=== PATIENT | male | born 1970 | race Caucasian/White ===

== ENCOUNTER 2016-05-01 18:33 | Observation (INO) | payer OTHER ==
[2016-05-01 18:41] VITALS: BMI 30.2
[2016-05-01 19:28] LABS: BASOPHIL 0.8 % (0-2.0); MCH 29.5 pg (25.7-33.7); MCHC 34.1 g/dl (32.0-35.9); MEAN CELL VOLUME 86.5 fl (80-96); NEUTROPHILS 65.2 % (42.8-82.8); PLATELET COUNT 156 K/MM3 (134-434); RDW 13.7 % (11.9-15.9); WHITE BLOOD COUNT 8.4 K/mm3 (4.0-10.0)
[2016-05-01 19:41] LABS: INR 0.98 (0.82-1.09); PROTHROMBIN TIME (PATIENT) 10.8 SEC (9.98-11.88)
--- NOTE | 2016-05-01 19:47 | PDOC ---
History of Present Illness - General Chief Complaint: Chest Pain Stated Complaint: CHEST PAIN Time Seen by Provider: 05/01/16 19:18 History Source: Patient Exam Limitations: No Limitations - History of Present Illness Initial Comments: 05/01/16 21:32 45yo Male patient presents to ED c/o chest pains for past couple days. Patient reports chest pains as ongoing since Sunday. He states he went to see his PCP who wanted to admit him but he refused and wanted to wait a few days. Patient state having MA in 2010 and had no symptoms and is concerned same thing may happen again. He denies n/v/d, fever, abd pain, back pain, cough, diff breathing , or any other complaints at this time. Cardiology- Dr. Brice Presenting Symptoms: Chest Pain Timing/Duration: reports: constant, getting worse Severity/Quality: reports: moderate, ingestion, pressure Location: reports: substernal Chest Pain Radiation: reports: no radiation Activities at Onset: reports: no specific activity Prior Chest Pain/Cardiac Workup: reports: Heart Attack Nitro Today/Relief: Yes: no nitro taken today, provided by ED Aspirin Received prior to arrival (Core Measure): Yes: 325 mg x 1, provided at home Beta Luisito given by EMS (Core Measure): No Beta Luisito taken at Home (Core Measure): Yes Associated Symptoms: Yes: Chest Pain/pressure, Headache. No: Back Pain, Cough, Diaphoresis, Dizziness, Fatigue, Palpitations, Shortness of Breath, Weakness Past History - Travel Traveled outside of the country in the last 30 days: No Close contact w/someone who was outside of country & ill: No - Past Medical History Allergies/Adverse Reactions: Allergies Allergy/AdvReac Type Severity Reaction Status Date / Time Penicillins Allergy Verified 05/01/16 18:41 Home Medications: Ambulatory Orders FENTANYL 100mcg PATCH [DURAGESIC 100mcg PATCH -] 1 patch TD Q3D 01/14/16 Oxycodone HCl 30 mg PO ASDIR 01/14/16 Aspirin [ASA -] 81 mg PO DAILY 02/08/16 Cyclobenzaprine HCl [Flexeril -] 10 mg PO TID 02/08/16 Lisinopril [Zestril] 20 mg PO DAILY 02/08/16 Albuterol Sulfate Inhaler - [Ventolin Hfa Inhaler -] 2 inh PO Q4H PRN 02/09/16 Amlodipine Besylate [Norvasc -] 5 mg PO DAILY 05/01/16 Isosorbide Mononitrate [Imdur -] 30 mg PO DAILY 05/01/16 Cancer: No (denies) Cardiac Disorders: Yes (MA 2008; s/p cath) HTN: Yes Lung CA: Yes - Surgical History Abdominal Surgery: (SPLENECTOMY; RIGHT KIDNEY REMOVED) Cardiac Surgery: Yes (cardiac cath no stents) Orthopedic Surgery: Yes (spinal sx x10) - Immunization History Immunization Up to Date: Yes - Psycho/Social/Smoking Cessation Hx Anxiety: Yes Suicidal Ideation: No Smoking Status: Yes Smoking History: Never smoked Years of Tobacco Use: 15 Have you smoked in the past 12 months: Yes Number of Cigarettes Smoked Daily: 5 Cigars Per Day: 0 Information on smoking cessation initiated: No 'Breaking Loose' booklet given: 02/08/16 Hx Alcohol Use: No Drug/Substance Use Hx: No Substance Use Type: Opiates Hx Substance Use Treatment: No Cardiac Specific PMH - Complaint Specific PMHX Abdominal Aortic Aneurysm: No Angina: Yes Cardiac Arrhythmia: No Cardiac Stent: No GERD: No Myocardial Infarction: Yes Pacemaker: No Pulmonary Embolus: No Valvular Heart Disease: No Peripheral Vascular Disease: No Review of Systems - Review of Systems Able to Perform ROS?: Yes Is the patient limited [place] proficient: No Constitutional: No: Fever Respiratory: No: Cough, Shortness of Breath Cardiac (ROS): Yes: Chest Pain Musculoskeletal: No: Back Pain All Other Systems: Reviewed and Negative *Physical Exam - Vital Signs Last Vital Signs Temp Pulse Resp BP Pulse Ox 98 F 80 18 132/80 98 05/01/16 18:37 05/01/16 18:37 05/01/16 18:37 05/01/16 18:37 05/01/16 18:37 - Physical Exam General Appearance: Yes: Nourished, Appropriately Dressed Neck: positive: Trachea midline, Supple Respiratory/Chest: positive: Lungs Clear, Normal Breath Sounds Cardiovascular: positive: Regular Rhythm, Regular Rate Gastrointestinal/Abdominal: positive: Normal Bowel Sounds, Soft Musculoskeletal: positive: Normal Inspection. negative: CVA Tenderness Extremity: positive: Normal Capillary Refill, Normal Inspection, Normal Range of Motion Integumentary: positive: Normal Color, Dry, Warm Neurologic: positive: python java developer II-XII NML intact, Fully Oriented, Alert, Normal Mood/ Affect, Normal Response, Motor Strength 09/01 ED Treatment Course - LABORATORY CBC & Chemistry Diagram: 05/01/16 19:15 05/01/16 19:15 - ADDITIONAL ORDERS Additional order review: Laboratory Results 05/01/16 05/01/16 05/01/16 19:15 19:15 19:15 INR 0.98 Sodium 138 Potassium 4.1 Chloride 105 Carbon Dioxide 27 Anion Gap 6 L BUN 18 Creatinine 0.8 Creat Clearance w eGFR > 60 Random Glucose 100 Calcium 8.1 L Total Bilirubin 0.3 AST 21 D ALT 36 D Alkaline Phosphatase 77 D Creatine Kinase 94 Troponin I < 0.02 Total Protein 6.8 Albumin 3.9 Blood Type B POSITIVE Antibody Screen Negative 05/01/16 19:15 RBC 5.13 MCV 86.5 MCHC 34.1 RDW 13.7 MPV 11.0 Neutrophils % 65.2 Lymphocytes % 23.8 Monocytes % 7.2 Eosinophils % 3.0 Basophils % 0.8 - RADIOLOGY Radiology Studies Ordered: Category Date Time Status CHEST X-RAY PORTABLE* [RAD] Stat Radiology 05/01/16 19:20 Taken *DC/Admit/Observation/Transfer Diagnosis at time of Disposition: Chest pain Qualifiers: Chest pain type: unspecified Qualified Code(s): R07.9 - Chest pain, unspecified - Discharge Dispostion Condition at time of disposition: Stable Admit: Yes
[2016-05-01 20:02] LABS: ALBUMIN 3.9 g/dl (3.4-5.0); ANION GAP 6 (8-16); BILIRUBIN,TOTAL 0.3 mg/dL (0.2-1.0); CALCIUM 8.1 mg/dL (8.5-10.1); CO2 27 mmol/L (21-32); CREATININE 0.8 mg/dL (0.7-1.3); GLUCOSE,RANDOM 100 mg/dL (74-106); SGOT/AST 21 U/L (15-37); SGPT/ALT 36 U/L (12-78); TOT PROT 6.8 g/dl (6.4-8.2)
[2016-05-01 20:05] LABS: ALK PHOS 77 U/L (45-117); TROPONIN I < 0.02 ng/ml (0.00-0.05)
--- NOTE | 2016-05-01 20:19 | PDOC ---
*Physical Exam - Vital Signs Last Vital Signs Temp Pulse Resp BP Pulse Ox 98 F 80 18 132/80 98 05/01/16 18:37 05/01/16 18:37 05/01/16 18:37 05/01/16 18:37 05/01/16 18:37 ED Treatment Course - LABORATORY CBC & Chemistry Diagram: 05/02/16 07:10 05/02/16 07:10 - ADDITIONAL ORDERS Additional order review: Laboratory Results 05/01/16 05/01/16 19:15 19:15 INR 0.98 Sodium 138 Potassium 4.1 Chloride 105 Carbon Dioxide 27 Anion Gap 6 L BUN 18 Creatinine 0.8 Creat Clearance w eGFR > 60 Random Glucose 100 Calcium 8.1 L Total Bilirubin 0.3 AST 21 D ALT 36 D Alkaline Phosphatase 77 D Creatine Kinase 94 Troponin I < 0.02 Total Protein 6.8 Albumin 3.9 05/01/16 19:15 RBC 5.13 MCV 86.5 MCHC 34.1 RDW 13.7 MPV 11.0 Neutrophils % 65.2 Lymphocytes % 23.8 Monocytes % 7.2 Eosinophils % 3.0 Basophils % 0.8 Medical Decision Making - Medical Decision Making 05/01/16 20:18 agree with care from ANABELLA Hu *DC/Admit/Observation/Transfer Diagnosis at time of Disposition: Chest pain - Discharge Dispostion Condition at time of disposition: Stable
[2016-05-01] MEDS ORDERED: oxyCODONE HCL 5 MG TABLET PO ONE (21:28)
[2016-05-01] MEDS ORDERED: NITROGLYCERIN 2% OINTMENT - 1GM PACKET TD ONE ×2 (21:28→21:32)
[2016-05-01] MEDS ORDERED: oxyCODONE HCL 5 MG TABLET ONE (21:31)
[2016-05-02] MEDS ORDERED: HYDROmorphone HCL CARPU-JECT 2 MG/1 ML DISP.SYRIN IVPUSH ONE (01:14)
[2016-05-02] MEDS ORDERED: HYDROmorphone HCL CARPU-JECT 2 MG/1 ML DISP.SYRIN ONE (01:15)
[2016-05-02] MEDS ORDERED: ALBUTEROL SO4 6.7 GM HFA INHALER IH PRN (02:46)
[2016-05-02] MEDS ORDERED: fentaNYL 100mcg/hr PATCH.TD72 TD SCH (03:00)
[2016-05-02] MEDS ORDERED: fentaNYL 100mcg/hr PATCH.TD72 ONE (03:09)
[2016-05-02] MEDS ORDERED: FENTANYL PATCH WASTE TD PRN (03:09)
[2016-05-02 03:26] LABS: TROPONIN I < 0.02 ng/ml (0.00-0.05)
[2016-05-02] MEDS ORDERED: oxyCODONE HCL 5 MG TABLET PO PRN (03:30)
[2016-05-02] MEDS ORDERED: CYCLOBENZAPRINE HCL 10 MG TABLET (FP) ONE (04:04)
[2016-05-02] MEDS ORDERED: oxyCODONE HCL 5 MG TABLET ONE (04:05)
[2016-05-02] MEDS: CYCLOBENZAPRINE HCL 10 MG TABLET (FP) PO PRN ×2 (04:06→13:52)
[2016-05-02 07:37] LABS: BASOPHIL 0.5 % (0-2.0); EOSINOPHIL 3.3 % (0-4.5); MCH 30.1 pg (25.7-33.7); MCHC 34.3 g/dl (32.0-35.9); MEAN CELL VOLUME 87.7 fl (80-96); MEAN PLT VOLUME 10.7 fl (7.5-11.1); NEUTROPHILS 60.5 % (42.8-82.8); PLATELET COUNT 137 K/MM3 (134-434); RDW 13.8 % (11.9-15.9); WHITE BLOOD COUNT 6.2 K/mm3 (4.0-10.0)
[2016-05-02 08:08] LABS: ALBUMIN 3.9 g/dl (3.4-5.0); ANION GAP 5 (8-16); CALCIUM 8.6 mg/dL (8.5-10.1); CO2 32 mmol/L (21-32); CREATININE 0.8 mg/dL (0.7-1.3); GLUCOSE,RANDOM 101 mg/dL (74-106); SGOT/AST 16 U/L (15-37); SGPT/ALT 31 U/L (12-78)
[2016-05-02 08:09] LABS: ALK PHOS 70 U/L (45-117); BILIRUBIN,TOTAL 0.4 mg/dL (0.2-1.0); TOT PROT 6.3 g/dl (6.4-8.2)
--- NOTE | 2016-05-02 08:44 | CONSULT ---
Consult Consult Specialty:: Cardiology Referred by:: ER Reason for Consultation:: chest pain - History of Present Illness Chief Complaint: chest pain History of Present Illness: 45 year old man with a history of HTN, prior smoker, multiple back surgeries, reported prior AK 2009 at [facility] with cardiac cath at that time showing no obstructive coronary disease, no intervention performed, possible chronic small vessel CAD, recent admission with chest pain and abnormal nuclear stress test, cardiac cath 01/2016 at [facility] showed again no obstructive CAD, echo showed normal biventricular function, no pericardial effusion, normal aortic root size, continues to have chronic atypical chest pain, presented to the ER with chest pressure. Pt. states that his chest pressure became worse yesterday so he came to the ER. Also history of chronic intermittent episodes of palpitations associated with flushing, headache, elevated blood pressure. 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 Pt. seen and examined in the ER in [place]. states that he still has chest pressure. denies sob, palpitations, lightheadedness, dizziness, syncope, or near syncope. no pnd, orthopnea, or LE edema. - History Source History Provided By: Patient, Medical Record Limitations to Obtaining History: No Limitations - Past Medical History Cardio/Vascular: Yes: CAD, HTN, Hyperlipdemia, [place] Musculoskeletal: Yes: Chronic low back pain, Other (multiple previous back surgeries, chronic back pain) - Alcohol/Substance Use Hx Alcohol Use: No - Smoking History Smoking history: Never smoked Have you smoked in the past 12 months: Yes Aproximately how many cigarettes per day: 5 - Social History ADL: Independent History of Recent Travel: No Home Medications - Allergies Allergies/Adverse Reactions: Allergies Allergy/AdvReac Type Severity Reaction Status Date / Time Penicillins Allergy Verified 05/01/16 18:41 - Home Medications Home Medications: Ambulatory Orders FENTANYL 100mcg PATCH [DURAGESIC 100mcg PATCH -] 1 patch TD Q3D 01/14/16 Oxycodone HCl 1 - 2 tab PO Q6H PRN 01/14/16 Aspirin [ASA -] 81 mg PO DAILY 02/08/16 Cyclobenzaprine HCl [Flexeril -] 10 mg PO TID 02/08/16 Lisinopril [Zestril] 20 mg PO DAILY 02/08/16 Albuterol Sulfate Inhaler - [Ventolin Hfa Inhaler -] 2 inh PO Q4H PRN 02/09/16 Amlodipine Besylate [Norvasc -] 5 mg PO DAILY 05/01/16 Isosorbide Mononitrate [Imdur -] 30 mg PO DAILY 05/01/16 Family Disease History - Family Disease History Family History: Denies Review of Systems - Review of Systems Constitutional: reports: Diaphoresis. denies: No Symptoms, Chills, Fever, Lethargy, Loss of Appetite, Malaise, Night Sweats, Unintentional Wgt. Loss, Weakness, Other Eyes: denies: No Symptoms, Blind Spots, Blurred Vision, Double Vision, Eye Pain , Floaters, Photophobia, Recent Change in Vision, Other HENT: denies: No Symptoms, Difficult Swallowing, Ear Discharge, Ear Pain, Epistaxis, Gingival Bleeding, Hearing Loss, Mouth Swelling, Nasal Congestion, Ocular Prosthesis, Throat Pain, Toothache, Ringing in Ears, Other Neck: denies: No Symptoms, Decreased ROM, Lumps, Pain on Movement, Stiffness, Swollen Glands, Tenderness, Other Cardiovascular: reports: Chest Pain, Palpitations. denies: No Symptoms, Edema, Shortness of Breath, Other Respiratory: denies: No Symptoms, Cough, Exercise Intolerance, Hemoptysis, Orthopnea, PND, Snoring, SOB, SOB on Exertion, Wheezing, Other Gastrointestinal: denies: No Symptoms, Abdominal Pain, Bloating, Constipation, Diarrhea, Dysphagia, Indigestion, Melena, Nausea, Rectal Bleeding, Vomiting, Vomiting Blood, Other Genitourinary: denies: No Symptoms, Burning, Discharge, Dysuria, Flank Pain, Frequency, Hematuria, Incontinence, Lesions, Menses, Pain, Testicular Mass, Testicular Pain, Testicular Swelling, Urgency, Vaginal Bleeding, Other Musculoskeletal: reports: Back Pain. denies: No Symptoms, Crepitus, Decreased ROM, Extremity Pain, Joint Pain, Joint Swelling, Muscle Pain, Muscle Cramps, Muscle Weakness, Other Integumentary: denies: No Symptoms, Blister, Bruising, Change in Color, Eczema, Erythema, Incision, Lesions, Lump, Pallor, Pruritis, Rash, Wound, Other Neurological: denies: No Symptoms, Change in LOC, Change in Speech, Confusion, Dizziness, Headache, Incoordination, Numbness, Parasthesia, Pre-Existing Deficit , Seizure, Syncope, Tremors, Unsteady Gait, Weakness, Other Endocrine: denies: No Symptoms, Excessive Sweating, Flushing, Increased Hunger, Increased Thirst, Intolerance to Cold, Intolerance to Heat, Unexplained Weight Gain, Unexplained Weight Loss, Other Hematology/Lymphatic: denies: No Symptoms, Easily Bruised, Excessive Bleeding, Swollen Glands, Other Psychiatric: denies: No Symptoms, Altered Sleep Pattern, Anxiety, Depression, Hallucinations, Panic, Paranoia, Suicidal, Other - Risk Factors Known Risk Factors: Yes: Hypercholesterolemia, Hypertension Vital Signs: Vital Signs Temperature 98 F 05/01/16 18:37 Pulse Rate 70 05/02/16 05:32 Respiratory Rate 16 05/02/16 05:32 Blood Pressure 116/74 05/02/16 05:32 O2 Sat by Pulse Oximetry (%) 100 05/02/16 05:32 Constitutional: Yes: Well Nourished, No Distress, Calm Eyes: Yes: WNL, Conjunctiva Clear, EOM Intact, PERRL HENT: Yes: WNL, Atraumatic, Normocephalic Neck: Yes: WNL, Supple, Trachea Midline Respiratory: Yes: WNL, Regular, CTA Bilaterally. No: Rales, Rhonchi, Wheezes Gastrointestinal: Yes: WNL, Normal Bowel Sounds, Soft. No: Distention, Tenderness Renal/: Yes: WNL Cardiovascular: Yes: WNL, Regular Rate and Rhythm. No: Bradycardia, Tachycardia , Pulse Irregular, Gallop, Rub, Varicosities JVD: No Carotid Bruit: No PMI: Non-Displaced Heart Sounds: Yes: S1, S2. No: Split S2, S3, S4, Clicks, Gallop, Rub, Bruit Murmur: No: Systolic Murmur, Diastolic Murmur Musculoskeletal: Yes: Back Pain Extremities: Yes: WNL Edema: No Peripheral Pulses WNL: Yes Peripheral Pulses: 2+ Left Doralis Pedis, 2+ Right Dorsalis Pedis Integumentary: Yes: WNL Neurological: Yes: WNL, Alert, Oriented, Cran Nerves II-XII Intact ...Motor Strength: WNL Psychiatric: Yes: WNL, Alert, Oriented - Other Data Labs, Other Data: CBC, BMP 05/02/16 07:10 05/02/16 07:10 INR, PTT INR 0.98 (0.82-1.09) 05/01/16 19:15 ekg-NSR 75bpm, incomplete RBBB, nonspecific St abnl Echo: Pending, Report Reviewed Prior Cardiac Procedures: Cardiac Catheterization Imaging - Results Chest X-ray: Report Reviewed, Image Reviewed EKG: Report Reviewed, Image Reviewed Other: Report Reviewed, Image Reviewed Problem List - Problems (1) Chest pain Code(s): R07.9 - CHEST PAIN, UNSPECIFIED Qualifiers: Chest pain type: unspecified Qualified Code(s): R07.9 - Chest pain, unspecified (2) CAD (coronary artery disease) Code(s): I25.10 - ATHSCL HEART DISEASE OF [place] CORONARY ARTERY W/O ANG PCTRS Qualifiers: Coronary Disease-Associated Artery/Lesion type: [place] artery Associated angina: with stable angina (3) HTN (hypertension) Code(s): I10 - ESSENTIAL (PRIMARY) HYPERTENSION (4) HLD (hyperlipidemia) Code(s): E78.5 - HYPERLIPIDEMIA, UNSPECIFIED Assessment/Plan 45 year old man with a history of HTN, prior smoker, multiple back surgeries, reported prior AK 2009 at [facility] with cardiac cath at that time showing no obstructive coronary disease, no intervention performed, possible chronic small vessel CAD, recent admission with chest pain and abnormal nuclear stress test, cardiac cath 01/2016 at [facility] showed again no obstructive CAD, echo showed normal biventricular function, no pericardial effusion, normal aortic root size, continues to have chronic atypical chest pain, presented to the ER with chest pressure. Pt. states that his chest pressure became worse yesterday so he came to the ER. Also history of chronic intermittent episodes of palpitations associated with flushing, headache, elevated blood pressure. 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 Chest pain-atypical, unlikely ACS -recent cath as above with no sig CAD -possible small vessell CAD -cardiac enzymes wnl x2, would check 3rd set -Check CTA chest/abd to rule out aortic pathology and PE -f/up echo that was ordered for today -cont ASA 81mg daily -cont norvasc and Imdur for possible small vessel CAD -will consider Ranexa as well -cont Lisinopril -Ok to dc tele -no additional ischemic work up is needed at this time HTN-well controlled -cont current medical regimen Episodic palpitations associated with flushing, headache, HTN -not reported on this presentation -needs endocrine evaluation for pheochromocytoma work up, can likely be done as outpatient
--- NOTE | 2016-05-02 09:51 | EKG ---
Test Reason : Blood Pressure : / mmHG Vent. Rate : 075 BPM Atrial Rate : 075 BPM P-R Int : 168 ms QRS Dur : 116 ms QT Int : 402 ms P-R-T Axes : 025 -09 020 degrees QTc Int : 448 ms NORMAL SINUS RHYTHM INCOMPLETE RIGHT BUNDLE BRANCH BLOCK BORDERLINE ECG WHEN COMPARED WITH ECG OF 09-FEB-2016 05:33, INCOMPLETE RIGHT BUNDLE BRANCH BLOCK IS NOW PRESENT Confirmed by EVELIA ACUNA MD ([id number]) on 05/02/2016 9:50:55 AM Referred By: Overread By: EVELIA ACUNA MD
[2016-05-02] MEDS: ASPIRIN 81 MG CHEWABLE TABLETS PO SCH ×2 (11:03→13:54)
[2016-05-02] MEDS: ISOSORBIDE MONONITRATE 30 MG TAB.SR.24H (FP) PO SCH ×2 (11:04→13:53)
[2016-05-02] MEDS: PANTOPRAZOLE 40 MG TABLET (FP) PO SCH ×2 (11:04→13:53)
[2016-05-02] MEDS: amLODIPine BESYLATE 5 MG TABLET (FP) PO SCH ×2 (11:04→13:52)
[2016-05-02] MEDS: LISINOPRIL 20 MG TABLET (FP) PO SCH ×2 (11:05→13:53)
--- NOTE | 2016-05-02 12:44 | HP ---
Admitting History and Physical - Admission Chief Complaint: Chest pain History of Present Illness: Pt is a 45 y/o male w/ PMH significant for HTN, HLD, S/P [place] and nonobstructive CAD. Pt had cardiac cath in 02/12 at [facility] wc was normal. Pt now presented to the ER bc of chest pain w/ an intensity of 10/10 wc had been intermittent for the past few days. Pt even saw his PMD who recommended pt be admitted however he refused. Pt associates this chest pain w/ palpitations and flushing of the his face. - Past Medical History Cardiovascular: Yes: CAD, HTN, Hyperlipdemia, [place] Musculoskeletal: Yes: Chronic low back pain, Other (multiple previous back surgeries, chronic back pain) - Past Surgical History Additional Past Surgical History: Multiple back surgeries - Smoking History Smoking history: Never smoked Have you smoked in the past 12 months: Yes Aproximately how many cigarettes per day: 5 - Alcohol/Substance Use Hx Alcohol Use: No - Social History ADL: Independent History of Recent Travel: No Home Medications - Allergies Allergies/Adverse Reactions: Allergies Allergy/AdvReac Type Severity Reaction Status Date / Time Penicillins Allergy Verified 05/01/16 18:41 - Home Medications Home Medications: Ambulatory Orders FENTANYL 100mcg PATCH [DURAGESIC 100mcg PATCH -] 1 patch TD Q3D 01/14/16 Oxycodone HCl 1 - 2 tab PO Q6H PRN 01/14/16 Aspirin [ASA -] 81 mg PO DAILY 02/08/16 Cyclobenzaprine HCl [Flexeril -] 10 mg PO TID 02/08/16 Lisinopril [Zestril] 20 mg PO DAILY 02/08/16 Albuterol Sulfate Inhaler - [Ventolin Hfa Inhaler -] 2 inh PO Q4H PRN 02/09/16 Amlodipine Besylate [Norvasc -] 5 mg PO DAILY 05/01/16 Isosorbide Mononitrate [Imdur -] 30 mg PO DAILY 05/01/16 Family Disease History - Family Disease History Family History: Unremarkable Review of Systems - Review of Systems Constitutional: reports: Other (Flushing) HENT: reports: No Symptoms Neck: reports: No Symptoms Cardiovascular: reports: Chest Pain Respiratory: reports: No Symptoms Gastrointestinal: reports: No Symptoms Physical Examination Vital Signs: Vital Signs Temperature 97.9 F 05/02/16 09:00 Pulse Rate 59 L 05/02/16 09:00 Respiratory Rate 24 05/02/16 09:00 Blood Pressure 93/43 05/02/16 09:00 O2 Sat by Pulse Oximetry (%) 100 05/02/16 05:32 Constitutional: Yes: Well Nourished HENT: Yes: WNL Neck: Yes: Supple Cardiovascular: Yes: WNL, Regular Rate and Rhythm Respiratory: Yes: WNL, Regular, CTA Bilaterally Gastrointestinal: Yes: WNL, Normal Bowel Sounds, Soft, Abdomen, Obese Labs: CBC, BMP 05/02/16 07:10 05/02/16 07:10 Problem List - Problems (1) Chest pain Assessment/Plan: CPK/troponin have been negative Negative cardiac cath 02/12 Check echo as per cardio Check CTA chest/ct abd Code(s): R07.9 - CHEST PAIN, UNSPECIFIED Qualifiers: Chest pain type: unspecified Qualified Code(s): R07.9 - Chest pain, unspecified (2) HTN (hypertension) Assessment/Plan: BP stable Code(s): I10 - ESSENTIAL (PRIMARY) HYPERTENSION (3) HLD (hyperlipidemia) Code(s): E78.5 - HYPERLIPIDEMIA, UNSPECIFIED (4) Back pain Code(s): M54.9 - DORSALGIA, UNSPECIFIED (5) CAD (coronary artery disease) Code(s): I25.10 - ATHSCL HEART DISEASE OF [place] CORONARY ARTERY W/O ANG PCTRS Qualifiers: Coronary Disease-Associated Artery/Lesion type: [place] artery Associated angina: with stable angina
[2016-05-02] MEDS: HEPARIN NA (PORCINE) 5,000 UNITS/ML 1ML VIAL SQ SCH ×2 (13:54→22:18)
[2016-05-02] MEDS: oxyCODONE HCL 5 MG TABLET PO PRN ×2 (14:12→20:29)
[2016-05-03] MEDS: oxyCODONE HCL 5 MG TABLET PO PRN ×2 (06:33→12:32)
[2016-05-03] MEDS: HEPARIN NA (PORCINE) 5,000 UNITS/ML 1ML VIAL SQ SCH (10:21)
[2016-05-03] MEDS: LISINOPRIL 20 MG TABLET (FP) PO SCH (10:21)
[2016-05-03] MEDS: amLODIPine BESYLATE 5 MG TABLET (FP) PO SCH (10:21)
[2016-05-03] MEDS: ISOSORBIDE MONONITRATE 30 MG TAB.SR.24H (FP) PO SCH (10:21)
[2016-05-03] MEDS: PANTOPRAZOLE 40 MG TABLET (FP) PO SCH (10:21)
[2016-05-03] MEDS: ASPIRIN 81 MG CHEWABLE TABLETS PO SCH (10:21)
[2016-05-03 11:55] VITALS: BP 125/82; PULSE 68; TEMP 97.9
== END 2016-05-03 14:12 | disposition home or self-care (01) ==
LOC: JER 18:33 → UNDOADMOB 22:13 → JERBED 22:13 → OBSVTOIN 05-02 02:54 → JERBED 05-02 02:54 → INTOOBSV 05-02 02:54 → J8W 05-02 13:38 → JERBED 05-02 13:38
PROVIDERS: ADMIT Internal Medicine; ATTEND Internal Medicine
DX: R07.89 Other chest pain (principal); I10 Essential (primary) hypertension; I25.2 Old myocardial infarction; I25.10 Atherosclerotic heart disease of native coronary artery without angina pectoris; E78.5 Hyperlipidemia, unspecified; M54.5 Low back pain
CPT/HCPCS: 36415; 71010-TC; 71275-TC; 74174-TC; 76705-TC; 80053; 82550; 84484; 85025; 85610; 86850; 86900; 86901; 93005; 93010; 93306-TC; 99285-25; G0378; J1644

== ENCOUNTER 2016-05-27 17:56 | Emergency (ER) | payer OTHER ==
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
[2016-05-27] MEDS ORDERED: HYDROmorphone HCL CARPU-JECT 1 MG/1 ML DISP.SYRIN IVPUSH ONE ×3 (18:16→20:57)
[2016-05-27] MEDS ORDERED: SODIUM CHLORIDE 1,000 ML IV STA ×2 (18:16→18:28)
[2016-05-27] MEDS ORDERED: HYDROmorphone HCL CARPU-JECT 2 MG/1 ML DISP.SYRIN ONE ×2 (18:34→19:39)
[2016-05-27 18:46] VITALS: TEMP 98.5; BMI 28.2
[2016-05-27 18:49] LABS: BASOPHIL 0.3 % (0-2.0); EOSINOPHIL 0.8 % (0-4.5); MCH 29.5 pg (25.7-33.7); MCHC 33.3 g/dl (32.0-35.9); MEAN CELL VOLUME 88.5 fl (80-96); MEAN PLT VOLUME 10.8 fl (7.5-11.1); NEUTROPHILS 80.5 % (42.8-82.8); PLATELET COUNT 148 K/MM3 (134-434); RDW 12.4 % (11.9-15.9); WHITE BLOOD COUNT 9.1 K/mm3 (4.0-10.0)
[2016-05-27 18:55] LABS: INR 1.16 (0.82-1.09); PROTHROMBIN TIME (PATIENT) 12.6 SEC (10.2-13.0)
[2016-05-27 18:56] LABS: ALBUMIN 4.8 g/dl (3.5-5.0); ALK PHOS 66 U/L (32-92); ANION GAP 12 (8-16); BILIRUBIN,TOTAL 0.5 mg/dl (0.2-1.0); CALCIUM 9.7 mg/dl (8.4-10.2); CO2 23 mmol/L (22-28); CREATININE 0.7 mg/dl (0.6-1.3); GLUCOSE,RANDOM 101 mg/dl (74-106); SGOT/AST 25 U/L (10-42); SGPT/ALT 27 U/L (10-40); TOT PROT 7.7 g/dl (6.4-8.3)
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
[2016-05-27 19:53] LABS: URINE APPEARANCE Clear; URINE BILIRUBIN Negative (NEGATIVE); URINE BLOOD Negative (NEGATIVE); URINE GLUCOSE (UA) Negative (NEGATIVE); URINE KETONE Trace (NEGATIVE); URINE LEUK ESTERASE Negative (NEGATIVE); URINE NITRITE Negative (NEGATIVE); URINE PROTEIN Negative (NEGATIVE); URINE UROBILINOGEN 0.2 E.U/dl (0.2-1.0)
[2016-05-27 19:54] LABS: URINE COLOR YELLOW
[2016-05-27 20:42] VITALS: BP 119/66; PULSE 55
[2016-05-27 21:05] LABS: URINE MARIJUANA THC NEGATIVE ng/ml (CUTOFF=50)
[2016-05-27] MEDS ORDERED: FENTANYL PATCH WASTE MC PRN (21:18)
[2016-05-27] MEDS ORDERED: fentaNYL 50mcg/hr PATCH.TD72 TD SCH (21:30)
== END 2016-05-27 21:34 | disposition home or self-care (01) ==
LOC: FER 17:56
PROC: 3E033NZ Introduction of Analgesics, Hypnotics, Sedatives into Peripheral Vein, Percutaneous Approach (ICD-10-PCS; principal; 2016-05-27)
PROC: 3E0337Z Introduction of Electrolytic and Water Balance Substance into Peripheral Vein, Percutaneous Approach (ICD-10-PCS; 2016-05-27)
DX: S09.90XA Unspecified injury of head, initial encounter (principal); V48.5XXA Car driver injured in noncollision transport accident in traffic accident, initial encounter; Y93.89 Activity, other specified; Y92.39 Other specified sports and athletic area as the place of occurrence of the external cause; I10 Essential (primary) hypertension; F17.210 Nicotine dependence, cigarettes, uncomplicated; Z85.118 Personal history of other malignant neoplasm of bronchus and lung; I25.2 Old myocardial infarction
CPT/HCPCS: 36415; 70450-TC; 70486-TC; 70498-TC; 71260-TC; 72125-TC; 74177-TC; 80053; 80307; 81003; 83605; 85025; 85610; 86850; 86900; 86901; 99284-25

== ENCOUNTER 2016-08-05 17:53 | Emergency (ER) | payer OTHER ==
[2016-08-05 17:58] VITALS: BP 123/76; PULSE 78; TEMP 98; BMI 30.2
--- NOTE | 2016-08-05 18:30 | PDOC ---
History of Present Illness - General Chief Complaint: Cold Symptoms Stated Complaint: COUGH/CONGESTED Time Seen by Provider: 08/05/16 18:13 History Source: Patient Exam Limitations: No Limitations - History of Present Illness Initial Comments: 08/05/16 18:26 45 old male with history of asthma and smoking presents the ED with cough and congestion for the past 2 weeks. Patient states has been coughing up yellow phlegm but denies fever, difficulty breathing, chest pain, shortness of breath. Patient states normally he is given Z-Isiah and responds well to this especially this time year where he states symptoms mentioned above usually occur. Timing/Duration: reports: other (2 weeks) Severity: reports: mild Possible Cause: Yes: occasional episodes Modifying Factors: improves with: coughing Associated Symptoms: reports: cough Past History - Past Medical History Allergies/Adverse Reactions: Allergies Allergy/AdvReac Type Severity Reaction Status Date / Time Penicillins Allergy Verified 08/05/16 17:58 Home Medications: Ambulatory Orders FENTANYL 100mcg PATCH [DURAGESIC 100mcg PATCH -] 1 patch TD Q3D 01/14/16 Oxycodone HCl 1 - 2 tab PO Q6H PRN 01/14/16 Aspirin [ASA -] 81 mg PO DAILY 02/08/16 Cyclobenzaprine HCl [Flexeril -] 10 mg PO TID 02/08/16 Lisinopril [Zestril] 20 mg PO DAILY 02/08/16 Amlodipine Besylate [Norvasc -] 5 mg PO DAILY 05/01/16 Isosorbide Mononitrate [Imdur -] 30 mg PO DAILY 05/01/16 Metoprolol Succinate [Toprol Xl -] 25 mg PO DAILY 05/27/16 Cancer: No Cardiac Disorders: Yes ([place] 2008; s/p cath) HTN: Yes Lung CA: No - Surgical History Abdominal Surgery: (SPLENECTOMY; RIGHT KIDNEY REMOVED) Appendectomy: Yes Cardiac Surgery: Yes (cardiac cath no stents) Orthopedic Surgery: Yes (spinal sx x10) - Immunization History Immunization Up to Date: Yes - Psycho/Social/Smoking Cessation Hx Anxiety: No Suicidal Ideation: No Smoking Status: Yes Smoking History: Former smoker Years of Tobacco Use: 15 Have you smoked in the past 12 months: Yes Number of Cigarettes Smoked Daily: 5 If you are a former smoker, when did you quit?: 2 [place] Cigars Per Day: 0 Information on smoking cessation initiated: No 'Breaking Loose' booklet given: 05/27/16 Hx Alcohol Use: Yes (SR) Drug/Substance Use Hx: No Substance Use Type: None Hx Substance Use Treatment: No Patient Lives Alone: No Respiratory Specific PMHX - Complaint Specific PMHX Angina: Yes Pulmonary Embolus: No Review of Systems - Review of Systems Able to Perform ROS?: Yes Constitutional: No: Symptoms Reported HEENTM: No: Symptoms Reported Respiratory: Yes: Cough, Productive cough Cardiac (ROS): No: Symptoms Reported ABD/GI: No: Nausea Neurological: No: Headache, Dizziness *Physical Exam - Vital Signs Last Vital Signs Temp Pulse Resp BP Pulse Ox 98.0 F 78 20 123/76 95 08/05/16 17:55 08/05/16 17:55 08/05/16 17:55 08/05/16 17:55 08/05/16 17:55 - Physical Exam General Appearance: Yes: Nourished, Appropriately Dressed. No: Apparent Distress HEENT: positive: EOMI, BLACK, TMs Normal, Pharynx Normal. negative: Pale Conjunctivae Neck: positive: Normal Thyroid Respiratory/Chest: positive: Lungs Clear, Normal Breath Sounds. negative: Respiratory Distress, Accessory Muscle Use Cardiovascular: positive: Regular Rhythm, Regular Rate. negative: Murmur Integumentary: positive: Normal Color, Warm, Moist Neurologic: positive: Motor Strength 5/5 (ambulatory) Medical Decision Making - Medical Decision Making 08/05/16 18:28 patient with complaints of cough and congestion for the past 2 weeks. Patient states smokes and also has history of asthma. Patient states normally responds well to the back. Patient had no acute findings but due to medical history and smoking history patient be given Z-Isiah along with an inhaler. *DC/Admit/Observation/Transfer Diagnosis at time of Disposition: Bronchitis - Discharge Dispostion Disposition: HOME Condition at time of disposition: Good - Referrals Referrals: Yvon Meeks MD [Primary Care Provider] - - Patient Instructions Printed Discharge Instructions: DI for Acute Bronchitis Additional Instructions: Please antibiotics as prescribed. Please use inhaler as needed for wheezing or cough. Drink plenty of fluids and rest
== END 2016-08-05 18:34 | disposition home or self-care (01) ==
LOC: JERFT 17:53
DX: J20.9 Acute bronchitis, unspecified (principal); J45.909 Unspecified asthma, uncomplicated; Z98.61 Coronary angioplasty status; I25.2 Old myocardial infarction; F17.210 Nicotine dependence, cigarettes, uncomplicated
CPT/HCPCS: 99281-25

== ENCOUNTER 2016-09-18 10:06 | Observation (INO) | payer OTHER ==
[2016-09-18 10:22] VITALS: BP 124/57; PULSE 73; TEMP 98.3; BMI 30.2
[2016-09-18] MEDS ORDERED: ASPIRIN 81 MG CHEWABLE TABLETS PO ONE (11:07)
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
[2016-09-18] MEDS ORDERED: ASPIRIN 325 MG ENTERIC COATED TABLET (FP) PO ONE ×2 (11:24→11:55)
[2016-09-18 11:36] LABS: BASOPHIL 0.4 % (0-2.0); EOSINOPHIL 3.1 % (0-4.5); MCH 30.6 pg (25.7-33.7); MCHC 34.8 g/dl (32.0-35.9); MEAN CELL VOLUME 87.9 fl (80-96); MEAN PLT VOLUME 9.8 fl (7.5-11.1); PLATELET COUNT 129 K/MM3 (134-434)
[2016-09-18] MEDS ORDERED: ASPIRIN 325 MG ENTERIC COATED TABLET (FP) ONE (11:39)
[2016-09-18] MEDS ORDERED: ASPIRIN 81 MG CHEWABLE TABLETS ONE (11:43)
[2016-09-18] MEDS ORDERED: oxyCODONE HCL 5 MG TABLET PO ONE (11:49)
[2016-09-18 11:58] LABS: INR 0.98 (0.82-1.09); PROTHROMBIN TIME (PATIENT) 10.8 SEC (9.98-11.88)
[2016-09-18] MEDS ORDERED: oxyCODONE HCL 5 MG TABLET ONE (12:05)
[2016-09-18 12:08] LABS: ALBUMIN 3.7 g/dl (3.4-5.0); ANION GAP 9 (8-16); BILIRUBIN,TOTAL 0.4 mg/dL (0.2-1.0); CALCIUM 8.3 mg/dL (8.5-10.1); CO2 26 mmol/L (21-32); COCKROFT - GAULT 231.94; CREATININE 0.6 mg/dL (0.7-1.3); GLUCOSE,RANDOM 107 mg/dL (74-106); SGOT/AST 21 U/L (15-37); SGPT/ALT 32 U/L (12-78); TOT PROT 6.4 g/dl (6.4-8.2)
[2016-09-18 12:11] LABS: ALK PHOS 65 U/L (45-117); TROPONIN I < 0.02 ng/ml (0.00-0.05)
--- NOTE | 2016-09-18 13:59 | EKG ---
Test Reason : Blood Pressure : / mmHG Vent. Rate : 072 BPM Atrial Rate : 072 BPM P-R Int : 166 ms QRS Dur : 116 ms QT Int : 424 ms P-R-T Axes : 016 005 018 degrees QTc Int : 464 ms NORMAL SINUS RHYTHM INCOMPLETE RIGHT BUNDLE BRANCH BLOCK BORDERLINE ECG WHEN COMPARED WITH ECG OF 01-MAY-2016 18:43, NO SIGNIFICANT CHANGE WAS FOUND Confirmed by EVELIA ACUNA MD ([id number]) on 09/18/2016 1:58:57 PM Referred By: Confirmed By:EVELIA CAUNA MD
--- NOTE | 2016-09-18 15:18 | PN ---
Progress Note (short form) - Note Progress Note: Called for consult for patient admitted with chest pain. When returned call to ER pt has apparently eloped from the hospital. Of note pt was admitted in 2015 at which time he had an abnormal nuclear stress test and was referred to [facility] where cardiac cath was done and showed non-obstructive CAD with no PCI needed. He was presumed to have small vessel CAD causing his chronic atypical chest pain. He was again admitted 04/2016 with atypical chest pain but seems to have signed out AMA at that time. -If pt returns to ER would admit to tele for observation and rule out ACS
== END 2016-09-18 15:26 | disposition left against medical advice (07) ==
LOC: JER 10:06 → JERBED 13:01 → UNDOADMOB 13:01 → INTOOBSV 13:01 → JERBED 13:01 → UNDOADMOB 13:02
PROVIDERS: ADMIT Internal Medicine; ATTEND Internal Medicine
DX: I25.119 Atherosclerotic heart disease of native coronary artery with unspecified angina pectoris (principal); R07.2 Precordial pain; I10 Essential (primary) hypertension; I25.2 Old myocardial infarction; Z98.61 Coronary angioplasty status; Z87.891 Personal history of nicotine dependence; Z90.5 Acquired absence of kidney; Z90.81 Acquired absence of spleen; Z79.82 Long term (current) use of aspirin
CPT/HCPCS: 36415; 71010-TC; 80053; 82550; 83735; 84484; 85025; 85610; 93005; 93010; 99283-25; G0378

== ENCOUNTER 2016-10-19 15:05 | Emergency (ER) | payer OTHER ==
[2016-10-19 15:10] VITALS: BP 135/91; PULSE 68; TEMP 97.8; BMI 29.5
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
[2016-10-19 15:33] LABS: URINE APPEARANCE CLEAR; URINE BILIRUBIN NEGATIVE (NEGATIVE); URINE COLOR YELLOW; URINE GLUCOSE (UA) NEGATIVE (NEGATIVE); URINE KETONE NEGATIVE (NEGATIVE); URINE LEUK ESTERASE NEGATIVE (NEGATIVE); URINE NITRITE NEGATIVE (NEGATIVE); URINE PROTEIN NEGATIVE (NEGATIVE); URINE UROBILINOGEN NEGATIVE E.U./dl (0.2-1.0)
[2016-10-19 15:38] LABS: URINE BLOOD 3+ (NEGATIVE)
[2016-10-19 15:42] LABS: CALCIUM OXALATE CRYSTALS RARE /hpf (NONE SEEN); URINE MUCUS MANY; URINE RBC 250 /hpf (0-3); URINE WBC 3 /hpf (3-5)
[2016-10-19] MEDS ORDERED: CIPROFLOXACIN 500 MG TABLET (RESTRICTED TO ID) PO ONE (15:51)
== END 2016-10-19 16:32 | disposition home or self-care (01) ==
LOC: JERFT 15:05
DX: R31.9 Hematuria, unspecified (principal); Z87.442 Personal history of urinary calculi; F17.210 Nicotine dependence, cigarettes, uncomplicated; Z86.14 Personal history of Methicillin resistant Staphylococcus aureus infection; I10 Essential (primary) hypertension; Z95.5 Presence of coronary angioplasty implant and graft; I25.2 Old myocardial infarction; Z90.5 Acquired absence of kidney
CPT/HCPCS: 81003; 81015; 87086; 99281-25

== ENCOUNTER → 2016-12-04 | Emergency (ER) | payer OTHER ==
[~2016-12-04] MED LIST: ASPIRIN 81 MG CHEWABLE TABLETS ONE; ASPIRIN 81 MG CHEWABLE TABLETS PO ONE; NITROGLYCERIN SUBLINGUAL 1/150 0.4 MG TAB ONE; NITROGLYCERIN SUBLINGUAL 1/150 0.4 MG TAB SL ONE
[2016-12-04 09:56] VITALS: BMI 30.2
--- NOTE | 2016-12-04 10:32 | PDOC ---
History of Present Illness - General History Source: Patient Exam Limitations: No Limitations <AllenAlessandra - Last Filed: 12/04/16 10:52> - General History Source: Patient Exam Limitations: No Limitations - History of Present Illness Beta Luisito given by EMS (Core Measure): No Beta Luisito taken at Home (Core Measure): Yes <Anjana Thao - Last Filed: 12/04/16 12:37> - General Chief Complaint: Chest Pain Stated Complaint: CHEST PAIN Time Seen by Provider: 12/04/16 10:02 - History of Present Illness Initial Comments: 12/04/16 10:52 The patient is a 46 year old male, with a significant past medical history of HTN, [place] (2008 s/p cardiac catheterization) who presents to the emergency department with chest pain this morning. Patient describes substernal chest pain , constant, nonradiating with no associated symptoms. Patient states it feels like an elephant is sitting on his chest. Patient denies taking any medications for relief. Patient mentions his chest pressure is similar to the AR he had 5 years ago. According to EMR, patient was seen 2 months ago for the same complaint however AMA because he had negative troponins. Patient endorses baseline numbness in distal fingers from neck surgery. Patient presents to the ED for further evaluation. Patient denied cough, fever, chills, hx of DVT or PE. He denies headache or dizziness. He denies abdominal pain, nausea, vomit, diarrhea or constipation. He denies dysuria, frequency, urgency or hematuria. Patient had an abnormal stress test on 01/2016 which was indicative for moderate sized mild intensity basal inferior-septal ischemia with a fixed apical defect and an ejection fraction of 58%. He also underwent an echocardiogram on 04/2016 which was indicative for mild pulmonic valvular regurgitation. Allergies: Penicillin Past Surgical History: Cardiac catheterization. Spinal surgery (Neck, Thoracic and Lumbar). Splenectomy. Right Nephrectomy. Social History: Former smoker,No EtOH and recreational drug use. Family hx: Grandma, sister and father from [place] Primary Care Physician: Dr. Yvon Meeks (Alessandra Villa) Past History <Alessandra Villa - Last Filed: 12/04/16 10:52> - Past Medical History Cancer: No Cardiac Disorders: Yes ([place] 2008; s/p cath) HTN: Yes Lung CA: No - Surgical History Abdominal Surgery: (SPLENECTOMY; RIGHT KIDNEY REMOVED) Appendectomy: Yes Cardiac Surgery: Yes (cardiac cath no stents) Orthopedic Surgery: Yes (spinal sx x10) - Immunization History Immunization Up to Date: Yes - Psycho/Social/Smoking Cessation Hx Anxiety: No Suicidal Ideation: No Smoking Status: Yes Smoking History: Current every day smoker Years of Tobacco Use: 15 Have you smoked in the past 12 months: Yes Number of Cigarettes Smoked Daily: 5 If you are a former smoker, when did you quit?: 2 MO Cigars Per Day: 0 Information on smoking cessation initiated: No 'Breaking Loose' booklet given: 05/27/16 Hx Alcohol Use: No Drug/Substance Use Hx: No Substance Use Type: None Hx Substance Use Treatment: No <Anjana Thao - Last Filed: 12/04/16 12:37> - Past Medical History Allergies/Adverse Reactions: Allergies Allergy/AdvReac Type Severity Reaction Status Date / Time Penicillins Allergy Verified 12/04/16 09:56 Home Medications: Ambulatory Orders FENTANYL 100mcg PATCH [DURAGESIC 100mcg PATCH -] 1 patch TD Q3D 01/14/16 Oxycodone HCl 1 - 2 tab PO Q6H PRN 01/14/16 Aspirin [ASA -] 81 mg PO DAILY 02/08/16 Lisinopril [Zestril] 20 mg PO DAILY 02/08/16 Amlodipine Besylate [Norvasc -] 5 mg PO DAILY 05/01/16 Isosorbide Mononitrate [Imdur -] 30 mg PO DAILY 05/01/16 Metoprolol Succinate [Toprol XL -] 25 mg PO DAILY 05/27/16 Albuterol Sulfate Inhaler - [Ventolin HFA Inhaler -] 1 - 2 inh PO QID PRN #1 inhaler 08/05/16 Tamsulosin HCl [Flomax] 0.4 mg PO DAILY #7 cap.er.24h MDD 1 10/19/16 Cardiac Specific PMH - Complaint Specific PMHX Abdominal Aortic Aneurysm: No Angina: Yes Cardiac Arrhythmia: No Cardiac Stent: No GERD: No Pacemaker: No Pulmonary Embolus: No Valvular Heart Disease: No Peripheral Vascular Disease: No <Anjana Thao - Last Filed: 12/04/16 12:37> Review of Systems - Review of Systems Able to Perform ROS?: Yes <Alessandra Villa - Last Filed: 12/04/16 10:52> <MasterAnjana - Last Filed: 12/04/16 12:37> - Review of Systems Comments:: 12/04/16 10:52 GENERAL/CONSTITUTIONAL: No fever or chills. No weakness. HEAD, EYES, EARS, NOSE AND THROAT: No change in vision. No ear pain or discharge. No sore throat. GASTROINTESTINAL: No nausea, vomiting, diarrhea or constipation. GENITOURINARY: No dysuria, frequency, or change in urination. CARDIOVASCULAR: +chest pain. No shortness of breath. RESPIRATORY: No cough, wheezing, or hemoptysis. MUSCULOSKELETAL: No joint or muscle swelling or pain. No neck or back pain. SKIN: No rash NEUROLOGIC: No headache, vertigo, loss of consciousness, or change in strength/ sensation. ENDOCRINE: No increased thirst. No abnormal weight change. HEMATOLOGIC/LYMPHATIC: No anemia, easy bleeding, or history of blood clots. ALLERGIC/IMMUNOLOGIC: No hives or skin allergy. (AllenAlessandra dowell) *Physical Exam <Alessandra Villa - Last Filed: 12/04/16 10:52> <MasterAnjana - Last Filed: 12/04/16 12:37> - Vital Signs Last Vital Signs Temp Pulse Resp BP Pulse Ox 97.8 F 78 18 115/81 98 12/04/16 10:59 12/04/16 10:59 12/04/16 10:59 12/04/16 10:59 12/04/16 10:59 - Physical Exam Comments: 12/04/16 10:53 GENERAL: Awake, alert, and fully oriented, in no acute distress HEAD: No signs of trauma EYES: PERRLA, EOMI, sclera anicteric, conjunctiva clear ENT: Auricles normal inspection, nares patent, Moist mucosa NECK: Normal ROM, supple, no lymphadenopathy, JVD, or masses LUNGS: Breath sounds equal, clear to auscultation bilaterally. No wheezes, and no crackles HEART: Regular rate and rhythm, normal S1 and S2, no murmurs, rubs or gallops ABDOMEN: Soft, nontender, normoactive bowel sounds. No guarding, no rebound. No masses EXTREMITIES: Normal range of motion, no edema. No clubbing or cyanosis. No cords, erythema, or tenderness NEUROLOGICAL: Normal speech SKIN: Warm, Dry, normal turgor, no rashes or lesions noted. (Alessandra Villa) Heart Score/ECG Review #1 General ECG Interpretation: Sinus Rhythm, Normal Rate (74), Normal Intervals, No acute ischemic changes <Anjana Thao - Last Filed: 12/04/16 12:37> ED Treatment Course - LABORATORY CBC & Chemistry Diagram: 12/04/16 10:24 12/04/16 10:24 <Alessandra Villa - Last Filed: 12/04/16 10:52> - LABORATORY CBC & Chemistry Diagram: 12/04/16 10:24 12/04/16 10:24 <Anjana Thao - Last Filed: 12/04/16 12:37> - ADDITIONAL ORDERS Additional order review: Laboratory Results 12/04/16 10:24 Sodium 140 Potassium 3.7 Chloride 107 Carbon Dioxide 27 Anion Gap 6 L BUN 16 D Creatinine 0.8 D Creat Clearance w eGFR > 60 Random Glucose 107 H Calcium 8.4 L Total Bilirubin 0.6 D AST 18 ALT 42 D Alkaline Phosphatase 70 Creatine Kinase 76 Troponin I < 0.02 Total Protein 6.2 L Albumin 3.6 12/04/16 10:24 RBC 5.02 MCV 87.0 MCHC 34.7 RDW 13.2 MPV 10.6 Neutrophils % 64.8 Lymphocytes % 22.7 Monocytes % 8.8 Eosinophils % 2.9 Basophils % 0.8 - RADIOLOGY Radiology Studies Ordered: Category Date Time Status CHEST PA & LAT [RAD] Stat Radiology 12/04/16 10:10 Ordered - Medications Given in the ED: ED Medications Discontinued Medications Generic Name Dose Route Start Last Admin Trade Name Freq PRN Reason Stop Dose Admin Aspirin 162 mg 12/04/16 10:32 12/04/16 10:46 Asa - PO 12/04/16 10:33 162 mg ONCE ONE Administration Nitroglycerin 0.4 mg 12/04/16 10:32 12/04/16 10:54 Nitrostat - SL 12/04/16 10:33 0.4 mg ONCE ONE Administration Medical Decision Making <Alessandra Villa - Last Filed: 12/04/16 10:52> <Anjana Thao - Last Filed: 12/04/16 12:37> - Medical Decision Making 12/04/16 10:27 46 h/o HTN CAD chronic back pain (on fentanyl patch, pain management) here with c/o chest pressure. states feels like elephant sitting on his chest. no cough no f/c no leg swelling. no h/o dvt or pe. feels similar to prior [place]. states had catheterization with angioplasty no stents. states had a nuclear stress test 6 mo ago, was reportedly normal. did take baby aspirin today, states noncompliant with bp meds. one exam awake alert lungs clear bilaterally heart RRRR abd soft NtND skin warm and dry. ext no edema. no calf tendnerss. nuero alert oriented x 3. symmetric pulses bilaterally. differential : infection angina acs, spasm, gerd. plan ekg cxr nitroglycerin asa reassess. 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 12/04/16 12:[address] meeks, and states they do not know the patient. went to inform pt , ad pt no where to be found. per nursing report, pt had stated that he did not want to stay and left the ED. (Anjana Thao) *DC/Admit/Observation/Transfer <Alessandra Villa - Last Filed: 12/04/16 10:52> <Anjana Thao - Last Filed: 12/04/16 12:37> Diagnosis at time of Disposition: Chest pain in adult - Discharge Dispostion Disposition: ELOPED Condition at time of disposition: Unchanged/Unknown - Attestations Scribe Attestion: 12/04/16 10:53 Documentation prepared by Alessandra Villa, acting as medical geneticist for Anjana Thao MD, /. (Alessandra Villa)
[2016-12-04 10:44] LABS: BASOPHIL 0.8 % (0-2.0); EOSINOPHIL 2.9 % (0-4.5); MCH 30.2 pg (25.7-33.7); MCHC 34.7 g/dl (32.0-35.9); MEAN PLT VOLUME 10.6 fl (7.5-11.1); NEUTROPHILS 64.8 % (42.8-82.8); RDW 13.2 % (11.9-15.9); WHITE BLOOD COUNT 7.5 K/mm3 (4.0-10.0)
[2016-12-04 11:02] VITALS: BP 115/81; PULSE 78; TEMP 97.8
[2016-12-04 11:07] LABS: ALBUMIN 3.6 g/dl (3.4-5.0); ANION GAP 6 (8-16); BILIRUBIN,TOTAL 0.6 mg/dL (0.2-1.0); CALCIUM 8.4 mg/dL (8.5-10.1); CO2 27 mmol/L (21-32); CREATININE 0.8 mg/dL (0.7-1.3); GLUCOSE,RANDOM 107 mg/dL (74-106); SGOT/AST 18 U/L (15-37); SGPT/ALT 42 U/L (12-78); TOT PROT 6.2 g/dl (6.4-8.2)
[2016-12-04 11:10] LABS: ALK PHOS 70 U/L (45-117); CPK 76 IU/L (39-308); TROPONIN I < 0.02 ng/ml (0.00-0.05)
[2016-12-04 11:42] LABS: PLATELET COUNT 193 K/MM3 (134-434)
[2016-12-04 11:43] LABS: PLATELET ESTIMATE ADEQUATE (NORMAL)
--- NOTE | 2016-12-04 13:33 | EKG ---
Test Reason : Blood Pressure : / mmHG Vent. Rate : 074 BPM Atrial Rate : 074 BPM P-R Int : 180 ms QRS Dur : 120 ms QT Int : 402 ms P-R-T Axes : 067 001 029 degrees QTc Int : 446 ms NORMAL SINUS RHYTHM NON-SPECIFIC INTRA-VENTRICULAR CONDUCTION DELAY BORDERLINE ECG WHEN COMPARED WITH ECG OF 18-SEP-2016 10:13, NO SIGNIFICANT CHANGE WAS FOUND Confirmed by EVELIA ACUNA MD ([id number]) on 12/04/2016 1:33:27 PM Referred By: Confirmed By:EVELIA ACUNA MD
== END | disposition left against medical advice (07) ==
LOC: JER 09:47
DX: R07.9 Chest pain, unspecified (principal); I10 Essential (primary) hypertension; I25.2 Old myocardial infarction; F17.210 Nicotine dependence, cigarettes, uncomplicated; Z98.61 Coronary angioplasty status; Z79.82 Long term (current) use of aspirin; Z88.0 Allergy status to penicillin
CPT/HCPCS: 36415; 80053; 84484; 85025; 93005; 93010; 99284-25

== ENCOUNTER 2017-01-15 06:22 | Emergency (ER) | payer OTHER ==
--- NOTE | 2017-01-15 06:30 | PDOC ---
History of Present Illness - General Stated Complaint: SHOULDER, BACK PAIN Time Seen by Provider: 01/15/17 06:29 Past History - Past Medical History Allergies/Adverse Reactions: Allergies Allergy/AdvReac Type Severity Reaction Status Date / Time Penicillins Allergy Verified 12/04/16 09:56 Home Medications: Ambulatory Orders FENTANYL 100mcg PATCH [DURAGESIC 100mcg PATCH -] 1 patch TD Q3D 01/14/16 Oxycodone HCl 1 - 2 tab PO Q6H PRN 01/14/16 Aspirin [ASA -] 81 mg PO DAILY 02/08/16 Lisinopril [Zestril] 20 mg PO DAILY 02/08/16 Amlodipine Besylate [Norvasc -] 5 mg PO DAILY 05/01/16 Isosorbide Mononitrate [Imdur -] 30 mg PO DAILY 05/01/16 Metoprolol Succinate [Toprol XL -] 25 mg PO DAILY 05/27/16 Albuterol Sulfate Inhaler - [Ventolin HFA Inhaler -] 1 - 2 inh PO QID PRN #1 inhaler 08/05/16 Tamsulosin HCl [Flomax] 0.4 mg PO DAILY #7 cap.er.24h MDD 1 10/19/16 Cancer: No Cardiac Disorders: Yes ([place] 2008; s/p cath) HTN: Yes Lung CA: No - Surgical History Abdominal Surgery: (SPLENECTOMY; RIGHT KIDNEY REMOVED) Appendectomy: Yes Cardiac Surgery: Yes (cardiac cath no stents) Orthopedic Surgery: Yes (spinal sx x10) - Immunization History Immunization Up to Date: Yes - Psycho/Social/Smoking Cessation Hx Anxiety: No Suicidal Ideation: No Smoking Status: Yes Smoking History: Current every day smoker Years of Tobacco Use: 15 Have you smoked in the past 12 months: Yes Number of Cigarettes Smoked Daily: 5 If you are a former smoker, when did you quit?: 2 MO Cigars Per Day: 0 'Breaking Loose' booklet given: 05/27/16 Hx Alcohol Use: No Drug/Substance Use Hx: No Substance Use Type: None Hx Substance Use Treatment: No
[2017-01-15 06:40] VITALS: PULSE 84; BMI 30.8
[2017-01-15] MEDS ORDERED: HYDROmorphone HCL CARPU-JECT 2 MG/1 ML DISP.SYRIN IVPUSH ONE ×2 (06:41→08:13)
[2017-01-15] MEDS ORDERED: diazePAM 5 MG TABLET PO ONE (06:41)
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
[2017-01-15] MEDS ORDERED: KETOROLAC TROMETHAMINE 30 MG/1 ML VIAL IVPUSH ONE (07:19)
[2017-01-15] MEDS ORDERED: CYCLOBENZAPRINE HCL 5 MG TABLET PO ONE (07:20)
--- NOTE | 2017-01-15 07:42 | PDOC ---
*Physical Exam - Vital Signs Last Vital Signs Temp Pulse Resp BP Pulse Ox 97.9 F 84 22 134/86 99 01/15/17 06:36 01/15/17 06:36 01/15/17 06:36 01/15/17 06:36 01/15/17 06:36 ED Treatment Course - Medications Given in the ED: ED Medications Discontinued Medications Generic Name Dose Route Start Last Admin Trade Name Catarina PRN Reason Stop Dose Admin Cyclobenzaprine HCl 10 mg 01/15/17 07:20 01/15/17 07:36 Cyclobenzaprine Hcl PO 01/15/17 07:21 10 mg ONCE ONE Administration Diazepam 5 mg 01/15/17 06:41 01/15/17 07:02 Valium - PO 01/15/17 06:42 Not Given ONCE ONE Hydromorphone HCl 2 mg 01/15/17 06:41 01/15/17 07:02 Dilaudid Injection - IVPUSH 01/15/17 06:42 2 mg ONCE ONE Administration Ketorolac Tromethamine 30 mg 01/15/17 07:19 01/15/17 07:36 Toradol Injection - IVPUSH 01/15/17 07:20 30 mg ONCE ONE Administration Medical Decision Making - Medical Decision Making 01/15/17 08:20 Patient is a 46-year-old male with past medical history of multiple spinal surgeries, left foot drop, right shoulder torn rotator cuff, chronic opioid tolerance, presents to the emergency department today complaining of an exacerbation patient is low back pain and right shoulder pain. Patient is given 2 mg of IV Dilaudid and Toradol. Patient is also requesting fentanyl patch change, explained to patient we do not change patches in the emergency department. Patient states that the Dilaudid helped for a little while but now he is feeling pain again. We will obtain x-rays of lumbar spine and sacrum, right shoulder. We will give 2 more milligrams of IV Dilaudid and reevaluate. 01/15/17 09:26 Pt. states he is feeling better and wants to follow up [facility] Per radiology, x-ray shows degenerative changes. Will discharge so he can follow up with his doctors. Pt. requesting oxycodone oral to get to the hospital. Will give at this time. Pt. son is picking him up. Pt. feels comfortable with discharge instructions and all questions were answered at this time. *DC/Admit/Observation/Transfer Diagnosis at time of Disposition: Acute exacerbation of chronic low back pain Shoulder pain, acute Qualifiers: Laterality: right Qualified Code(s): M25.511 - Pain in right shoulder - Discharge Dispostion Disposition: HOME Condition at time of disposition: Good Admit: No - Referrals Referrals: Yvon Meeks MD [Primary Care Provider] - - Patient Instructions Printed Discharge Instructions: DI for Acute Pain -- Adult Additional Instructions: Follow up with the [facility] as soon as possible. Follow up with your pain management and orthopedics doctors. Resume all home medications. Return to the ED if your pain worsens, lose bladder or bowel function or have any changes in your symptoms - Post Discharge Activity
[2017-01-15 07:59] VITALS: BP 122/75; TEMP 98.2
[2017-01-15] MEDS ORDERED: oxyCODONE HCL 5 MG TABLET PO ONE (09:26)
== END 2017-01-15 09:35 | disposition home or self-care (01) ==
LOC: JER 06:22
PROC: 3E033NZ Introduction of Analgesics, Hypnotics, Sedatives into Peripheral Vein, Percutaneous Approach (ICD-10-PCS; principal; 2017-01-15)
PROC: 3E0333Z Introduction of Anti-inflammatory into Peripheral Vein, Percutaneous Approach (ICD-10-PCS; 2017-01-15)
DX: M54.5 Low back pain (principal); M25.511 Pain in right shoulder; V68.5XXA Driver of heavy transport vehicle injured in noncollision transport accident in traffic accident, initial encounter; Y92.488 Other paved roadways as the place of occurrence of the external cause; Y93.89 Activity, other specified; Y99.8 Other external cause status; G89.29 Other chronic pain; I25.2 Old myocardial infarction; I10 Essential (primary) hypertension; Z98.61 Coronary angioplasty status; M21.372 Foot drop, left foot
CPT/HCPCS: 72100-TC; 73030-TC-RT; 96374; 96375; 99283-25

== ENCOUNTER 2017-02-03 12:39 | Observation (INO) | payer OTHER ==
[2017-02-03 12:42] VITALS: BMI 29.5
[2017-02-03] MEDS ORDERED: NITROGLYCERIN SUBLINGUAL 1/150 0.4 MG TAB SL ONE (13:18)
[2017-02-03] MEDS ORDERED: ASPIRIN 325 MG TABLET PO ONE (13:18)
--- NOTE | 2017-02-03 13:20 | PDOC ---
History of Present Illness <Juliann Avery - Last Filed: 02/03/17 15:23> - History of Present Illness Beta Luisito given by EMS (Core Measure): No Beta Luisito taken at Home (Core Measure): Yes <Colby Cortez - Last Filed: 02/04/17 07:32> - General Chief Complaint: Chest Pain Stated Complaint: CHEST PAIN Time Seen by Provider: 02/03/17 12:53 - History of Present Illness Initial Comments: 02/03/17 13:28 The patient is a 46-year-old male with a significant past medical history of HTN , ND (2008 s/p cardiac catheterization), and presents to the emergency department with chest pain this morning. He states he woke up with chest pressure, and notes it feels similar to the pain from his last ND. He reports the pain is located across the chest, constant, non-radiating, with associated lightheadedness. He took Nitro with no significant relief. Pt denies any current SOB or swelling in the LEs. Pt denies headache and dizziness. Pt denies fever, chills, nausea, vomit, diarrhea, constipation, or urinary complaints. Pt has had multiple prior presentations to this ER for the same complaint. However, last 2 visits, pt eloped from hospital prior to completion of work up. Allergies: penicillins. Past Surgical History: cardiac catheterization, spinal surgeries (cervical, thoracic, lumbar), splenectomy, right nephrectomy. Social History: current everyday smoker, denies ETOH or drug use. Family PMHx: ND ( father, sister, grandma). PCP: Dr. Yvon Meeks. Childcare Aide: Dr. Brice. (Colby Cortez) Past History <Hannah Averynda - Last Filed: 02/03/17 15:23> - Past Medical History Cancer: No Cardiac Disorders: Yes (ND 2008; s/p cath) HTN: Yes Lung CA: No Other medical history: 9 back sx - Surgical History Abdominal Surgery: (SPLENECTOMY; RIGHT KIDNEY REMOVED) Appendectomy: Yes Cardiac Surgery: Yes (cardiac cath no stents) Orthopedic Surgery: Yes (spinal sx x10) - Immunization History Immunization Up to Date: Yes - Suicide/Smoking/Psychosocial Hx Smoking Status: Yes Smoking History: Current every day smoker Years of Tobacco Use: 15 Have you smoked in the past 12 months: No Number of Cigarettes Smoked Daily: 2 If you are a former smoker, when did you quit?: 2 MO Cigars Per Day: 0 Information on smoking cessation initiated: Yes 'Breaking Loose' booklet given: 02/03/17 Hx Alcohol Use: No Drug/Substance Use Hx: No Substance Use Type: None Hx Substance Use Treatment: No <Colby Cortez - Last Filed: 02/04/17 07:32> - Past Medical History Allergies/Adverse Reactions: Allergies Allergy/AdvReac Type Severity Reaction Status Date / Time Penicillins Allergy Verified 02/03/17 12:42 Home Medications: Ambulatory Orders FENTANYL 100mcg PATCH [DURAGESIC 100mcg PATCH -] 1 patch TD Q3D 01/14/16 Oxycodone HCl 1 - 2 tab PO Q6H PRN 01/14/16 Aspirin [ASA -] 81 mg PO DAILY 02/08/16 Lisinopril [Zestril] 20 mg PO DAILY 02/08/16 Amlodipine Besylate [Norvasc -] 5 mg PO DAILY 05/01/16 Isosorbide Mononitrate [Imdur -] 30 mg PO DAILY 05/01/16 Nitroglycerin Sublingual [Nitrostat -] 0.4 mg SL PRN PRN 02/03/17 Cardiac Specific PMH - Complaint Specific PMHX Abdominal Aortic Aneurysm: No Angina: Yes Cardiac Arrhythmia: No Cardiac Stent: No GERD: No Pacemaker: No Pulmonary Embolus: No Valvular Heart Disease: No Peripheral Vascular Disease: No <Colby Cortez - Last Filed: 02/04/17 07:32> Review of Systems <Juliann Avery - Last Filed: 02/03/17 15:23> <Colby Cortez - Last Filed: 02/04/17 07:32> - Review of Systems Comments:: 02/03/17 13:30 "GENERAL/CONSTITUTIONAL: No fever or chills. No weakness. HEAD, EYES, EARS, NOSE AND THROAT: No change in vision. No ear pain or discharge. No sore throat. CARDIOVASCULAR: (+) Chest pain. No shortness of breath. RESPIRATORY: No cough, wheezing, or hemoptysis. GASTROINTESTINAL: No nausea, vomiting, diarrhea or constipation. GENITOURINARY: No dysuria, frequency, or change in urination. MUSCULOSKELETAL: No joint or muscle swelling or pain. No neck or back pain. SKIN: No rash NEUROLOGIC: No headache, vertigo, loss of consciousness, or change in strength/ sensation. ENDOCRINE: No increased thirst. No abnormal weight change. HEMATOLOGIC/LYMPHATIC: No anemia, easy bleeding, or history of blood clots. ALLERGIC/IMMUNOLOGIC: No hives or skin allergy. " (Colby Cortez) *Physical Exam <Juliann Avery - Last Filed: 02/03/17 15:23> <Colby Cortez - Last Filed: 02/04/17 07:32> - Vital Signs Last Vital Signs Temp Pulse Resp BP Pulse Ox 97.8 F 68 20 139/78 98 02/04/17 07:25 02/04/17 07:25 02/04/17 07:26 02/04/17 07:25 02/04/17 07:26 - Physical Exam Comments: 02/03/17 13:30 "GENERAL: Awake, alert, and fully oriented, in no acute distress HEAD: No signs of trauma EYES: PERRLA, EOMI, sclera anicteric, conjunctiva clear ENT: Auricles normal inspection, hearing grossly normal, nares patent, oropharynx clear without exudates. Moist mucosa NECK: Nontender, no stepoffs, Normal ROM, supple, no lymphadenopathy, JVD, or masses LUNGS: Breath sounds equal, clear to auscultation bilaterally. No wheezes, and no crackles HEART: Regular rate and rhythm, normal S1 and S2, no murmurs, rubs or gallops ABDOMEN: Soft, nontender, normoactive bowel sounds. No guarding, no rebound. No masses EXTREMITIES: Normal range of motion, no edema. No clubbing or cyanosis. No cords, erythema, or tenderness NEUROLOGICAL: Cranial nerves II through XII intact. 5/5 strength and sensation in all extremities, Normal speech, normal gait SKIN: Warm, Dry, normal turgor, no rashes or lesions noted. " (Colby Cortez) Heart Score/ECG Review <Juliann Avery - Last Filed: 02/03/17 15:23> - History History: Moderately suspicious - Electrocardiogram EKG: Normal - Age Age: 45-65 - Risk Factors Risk Factors Heart Score: Yes Hx Hypercholesterolemia, Yes Hx Hypertension, Yes Smoking History Based on the list above the patient has:: >/=3 risk factors or Hx atherosclerotic disease - Troponin Troponin: </= normal limit - Score Heart Score - Total: 4 <Ou,Colby - Last Filed: 02/04/17 07:32> - ECG Impressions Comment:: 02/03/17 13:50 NSR, no SHAY/STDs, no TWIs, intervals wnl, axis wnl (Ou,Colby) ED Treatment Course - LABORATORY CBC & Chemistry Diagram: 02/03/17 13:15 02/03/17 13:15 <Juliann Avery - Last Filed: 02/03/17 15:23> - LABORATORY CBC & Chemistry Diagram: 02/03/17 13:15 02/04/17 05:10 <Ou,Colby - Last Filed: 02/04/17 07:32> - ADDITIONAL ORDERS Additional order review: 02/03/17 13:15 RBC 5.29 MCV 86.2 MCHC 34.2 RDW 13.4 MPV 10.9 Neutrophils % 73.7 Lymphocytes % 16.7 D Monocytes % 7.9 Eosinophils % 1.2 Basophils % 0.5 - RADIOLOGY Radiology Studies Ordered: Category Date Time Status CHEST X-RAY PORTABLE* [RAD] Stat Radiology 02/03/17 13:17 Completed - Medications Given in the ED: ED Medications Discontinued Medications Generic Name Dose Route Start Last Admin Trade Name Freq PRN Reason Stop Dose Admin Aspirin 325 mg 02/03/17 13:18 02/03/17 13:37 Asa - PO 02/03/17 13:19 325 mg ONCE ONE Administration Nitroglycerin 0.4 mg 02/03/17 13:18 02/03/17 13:37 Nitrostat - SL 02/03/17 13:19 0.4 mg ONCE ONE Administration Oxycodone HCl 10 mg 02/03/17 14:14 02/03/17 14:29 Roxicodone - PO 02/03/17 14:15 10 mg ONCE ONE Administration Oxycodone HCl 20 mg 02/03/17 14:37 02/03/17 15:02 Roxicodone - PO 02/03/17 14:38 20 mg ONCE ONE Administration Oxycodone HCl 10 mg 02/03/17 18:11 02/03/17 23:55 Roxicodone - PO 10 mg Q6H PRN Administration PAIN Medical Decision Making <Juliann Avery - Last Filed: 02/03/17 15:23> <Colby Cortez - Last Filed: 02/04/17 07:32> - Medical Decision Making 02/03/17 14:[address] Brice, waiting for call back. 02/03/17 15:[address] Pino. Waiting for call back. (Juliann Avery) 02/03/17 13:19 46 M with h/o CAD/ND presenting with chest pain. Concerning for ACS given significant cardiac history. No s/s DVT/PE on exam. No PE risk factors. - Labs, trop - CXR - Admit 02/03/17 15:[address] Tyler, covering MD for Dr. Brice, who reviewed pt's HPI and EKG with me. He recommends admission to tele for serial troponins, will defer cath at this time given negative trop and unconcerning EKG. Will reassess in AM. 02/03/17 15:[address] Pino, covering for Dr. Meeks, who has agreed to accept patient. Admit to tele obs. Case discussed in detail with admitting physician including history, physical exam and ancillary studies. Admitting physician has assumed care for the patient and will follow all pending diagnostics and complete the evaluation and treatment. (Colby Cortez) *DC/Admit/Observation/Transfer <Juliann Avery - Last Filed: 02/03/17 15:23> - Discharge Dispostion Admit: Yes <Colby Cortez - Last Filed: 02/04/17 07:32> Diagnosis at time of Disposition: Chest pain - Discharge Dispostion Decision to Admit order Date/Time: Decision to Admit Order Category Date Time Status Decision to Admit to Hospital Routine Admission 02/03/17 15:49 Active - Referrals - Attestations Scribe Attestion: 02/03/17 13:32 Documentation prepared by Juliann Avery, acting as medical assisting instructor for Colby Cortez MD. (Juliann Avery) Physician Attestion: 02/03/17 15:50 I, Dr. Colby Cortez MD, attest that this document has been prepared under my direction and personally reviewed by me in its entirety. I further attest, that it accurately reflects all work, treatment, procedures and medical decision -making performed by me. (Diego,Colby)
[2017-02-03 13:47] LABS: ANION GAP 8 (8-16); CALCIUM 9.1 mg/dL (8.5-10.1); CO2 27 mmol/L (21-32); CREATININE 0.8 mg/dL (0.7-1.3); GLUCOSE,RANDOM 100 mg/dL (74-106); SGOT/AST 17 U/L (15-37); SGPT/ALT 36 U/L (12-78)
[2017-02-03 13:48] LABS: ALK PHOS 83 U/L (45-117); BILIRUBIN,TOTAL 0.7 mg/dL (0.2-1.0); CPK 83 IU/L (39-308); TOT PROT 7.2 g/dl (6.4-8.2); TROPONIN I < 0.02 ng/ml (0.00-0.05)
[2017-02-03 13:58] LABS: BASOPHIL 0.5 % (0-2.0); EOSINOPHIL 1.2 % (0-4.5); MCH 29.5 pg (25.7-33.7); MCHC 34.2 g/dl (32.0-35.9); MEAN CELL VOLUME 86.2 fl (80-96); MEAN PLT VOLUME 10.9 fl (7.5-11.1); NEUTROPHILS 73.7 % (42.8-82.8); PLATELET COUNT 145 K/MM3 (134-434); RDW 13.4 % (11.9-15.9); WHITE BLOOD COUNT 7.1 K/mm3 (4.0-10.0)
[2017-02-03] MEDS ORDERED: oxyCODONE HCL 5 MG TABLET PO ONE ×2 (14:14→14:37)
[2017-02-03 14:43] LABS: INR 1.07 (0.82-1.09); PROTHROMBIN TIME (PATIENT) 11.8 SEC (9.98-11.88)
[2017-02-03 15:59] LABS: URINE MARIJUANA THC NEGATIVE ng/ml (CUTOFF=50)
[2017-02-03] MEDS ORDERED: NITROGLYCERIN SUBLINGUAL 1/150 0.4 MG TAB SL PRN (18:09)
[2017-02-03] MEDS ORDERED: FENTANYL PATCH WASTE TD PRN (18:15)
[2017-02-03] MEDS ORDERED: fentaNYL 100mcg/hr PATCH.TD72 TD SCH (18:15)
--- NOTE | 2017-02-03 18:15 | HP ---
Admitting History and Physical - Admission History of Present Illness: Pt is a 46 y/o male with PMH significant for HTN, MA (2009 s/p cardiac catheterization) and chronic pain syndrome. Pt presented to the emergency department with chest pain this morning. He states he woke up with chest pressure, and notes it feels similar to the pain from his last MA. He reports the pain is located across the chest, constant, non-radiating, with associated lightheadedness. - Past Medical History Cardiovascular: Yes: CAD, HTN, Hyperlipdemia, [place] Musculoskeletal: Yes: Chronic low back pain, Other (multiple previous back surgeries, chronic back pain) - Smoking History Smoking history: Current every day smoker Have you smoked in the past 12 months: No Aproximately how many cigarettes per day: 2 If you are a former smoker, when did you quit?: 2 MO - Alcohol/Substance Use Hx Alcohol Use: No - Social History ADL: Independent History of Recent Travel: No Home Medications - Allergies Allergies/Adverse Reactions: Allergies Allergy/AdvReac Type Severity Reaction Status Date / Time Penicillins Allergy Verified 02/03/17 12:42 - Home Medications Home Medications: Ambulatory Orders FENTANYL 100mcg PATCH [DURAGESIC 100mcg PATCH -] 1 patch TD Q3D 01/14/16 Oxycodone HCl 1 - 2 tab PO Q6H PRN 01/14/16 Aspirin [ASA -] 81 mg PO DAILY 02/08/16 Lisinopril [Zestril] 20 mg PO DAILY 02/08/16 Amlodipine Besylate [Norvasc -] 5 mg PO DAILY 05/01/16 Isosorbide Mononitrate [Imdur -] 30 mg PO DAILY 05/01/16 Nitroglycerin Sublingual [Nitrostat -] 0.4 mg SL PRN PRN 02/03/17 Family Disease History - Family Disease History Family Disease History: Heart Disease: Father, Mother Review of Systems - Review of Systems Constitutional: reports: No Symptoms Eyes: reports: No Symptoms HENT: reports: No Symptoms Neck: reports: No Symptoms Cardiovascular: reports: Chest Pain Respiratory: reports: No Symptoms Gastrointestinal: reports: No Symptoms Physical Examination Vital Signs: Vital Signs Temperature 97.8 F 02/03/17 12:40 Pulse Rate 76 02/03/17 17:06 Respiratory Rate 18 02/03/17 17:06 Blood Pressure 132/70 02/03/17 17:06 O2 Sat by Pulse Oximetry (%) 98 02/03/17 17:06 Constitutional: Yes: Well Nourished HENT: Yes: WNL Neck: Yes: WNL, Supple Cardiovascular: Yes: WNL, Regular Rate and Rhythm Respiratory: Yes: WNL, Regular, CTA Bilaterally Gastrointestinal: Yes: WNL, Normal Bowel Sounds, Soft Musculoskeletal: Yes: WNL Extremities: Yes: WNL Edema: No Problem List - Problems (1) Chest pain Assessment/Plan: Admitted to tele Serial cpk/troponin Check echo As per cardio Code(s): R07.9 - CHEST PAIN, UNSPECIFIED (2) HTN (hypertension) Assessment/Plan: BP stable Cont antihypertensives Code(s): I10 - ESSENTIAL (PRIMARY) HYPERTENSION (3) CAD (coronary artery disease) Assessment/Plan: Cont asa Code(s): I25.10 - ATHSCL HEART DISEASE OF [place] CORONARY ARTERY W/O ANG PCTRS Qualifiers: Coronary Disease-Associated Artery/Lesion type: unspecified vessel or lesion type [place] vs. transplanted heart: [place] heart Associated angina: with unspecified angina Qualified Code(s): I25.119 - Atherosclerotic heart disease of [place] coronary artery with unspecified angina pectoris; I25.119 - Atherosclerotic heart disease of [place] coronary artery with unspecified angina pectoris; I25.119 - Atherosclerotic heart disease of [place] coronary artery with unspecified angina pectoris; I25.119 - Atherosclerotic heart disease of [place] coronary artery with unspecified angina pectoris (4) HLD (hyperlipidemia) Code(s): E78.5 - HYPERLIPIDEMIA, UNSPECIFIED (5) Chronic pain syndrome Code(s): G89.4 - CHRONIC PAIN SYNDROME
--- NOTE | 2017-02-03 18:34 | EKG ---
Test Reason : Blood Pressure : / mmHG Vent. Rate : 084 BPM Atrial Rate : 084 BPM P-R Int : 174 ms QRS Dur : 114 ms QT Int : 388 ms P-R-T Axes : 055 007 041 degrees QTc Int : 458 ms NORMAL SINUS RHYTHM NONSPECIFIC ST ABNORMALITY BASELINE ARTIFACT WHEN COMPARED WITH ECG OF 04-DEC-2016 09:54, NO SIGNIFICANT CHANGE WAS FOUND REPEAT EKG IF CLINICALLY INDICATED Confirmed by CARROL DICKINSON MD ([id number]) on 02/03/2017 6:33:50 PM Referred By: Confirmed By:CARROL DICKINSON MD
[2017-02-03] MEDS: oxyCODONE HCL 5 MG TABLET PO PRN ×2 (18:47→23:55)
[2017-02-03] MEDS: amLODIPine BESYLATE 5 MG TABLET (FP) PO SCH (18:48)
[2017-02-03] MEDS: ASPIRIN 81 MG CHEWABLE TABLETS PO SCH (18:49)
[2017-02-03 19:11] LABS: CPK 77 IU/L (39-308)
[2017-02-03 19:12] LABS: TROPONIN I < 0.02 ng/ml (0.00-0.05)
[2017-02-03] MEDS: HEPARIN NA (PORCINE) 5,000 UNITS/ML 1ML VIAL SQ SCH (22:00)
[2017-02-04] MEDS ORDERED: oxyCODONE HCL 5 MG TABLET PO PRN (02:49)
[2017-02-04 07:01] LABS: ALBUMIN 3.9 g/dl (3.4-5.0); ANION GAP 11 (8-16); BILIRUBIN,TOTAL 0.5 mg/dL (0.2-1.0); CALCIUM 8.7 mg/dL (8.5-10.1); CO2 22 mmol/L (21-32); CREATININE 0.7 mg/dL (0.7-1.3); GLUCOSE,RANDOM 88 mg/dL (74-106); SGOT/AST 16 U/L (15-37); SGPT/ALT 36 U/L (12-78); TOT PROT 6.8 g/dl (6.4-8.2)
[2017-02-04 07:03] LABS: ALK PHOS 80 U/L (45-117); CPK 69 IU/L (39-308); TROPONIN I < 0.02 ng/ml (0.00-0.05)
[2017-02-04 07:22] LABS: BASOPHIL 0.5 % (0-2.0); EOSINOPHIL 2.4 % (0-4.5); MCH 29.8 pg (25.7-33.7); MCHC 34.2 g/dl (32.0-35.9); MEAN CELL VOLUME 87.2 fl (80-96); MEAN PLT VOLUME 10.9 fl (7.5-11.1); NEUTROPHILS 64.9 % (42.8-82.8); PLATELET COUNT 154 K/MM3 (134-434); RDW 13.5 % (11.9-15.9); WHITE BLOOD COUNT 8.7 K/mm3 (4.0-10.0)
[2017-02-04] MEDS ORDERED: oxyCODONE HCL 5 MG TABLET ONE (09:10)
[2017-02-04] MEDS: oxyCODONE HCL 5 MG TABLET PO PRN ×3 (09:11→19:51)
[2017-02-04] MEDS: LISINOPRIL 20 MG TABLET (FP) PO SCH (09:12)
[2017-02-04] MEDS: ISOSORBIDE MONONITRATE 30 MG TAB.SR.24H (FP) PO SCH (09:12)
[2017-02-04] MEDS: amLODIPine BESYLATE 5 MG TABLET (FP) PO SCH (09:12)
[2017-02-04] MEDS: ASPIRIN 81 MG CHEWABLE TABLETS PO SCH (09:13)
[2017-02-04] MEDS: HEPARIN NA (PORCINE) 5,000 UNITS/ML 1ML VIAL SQ SCH ×2 (09:13→21:01)
--- NOTE | 2017-02-04 09:24 | CON.CARD ---
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 Pt. seen and examined today in [facility]. Pt states that he still currently has the chest pain. Also again notes the fullness/flushing sensation in his neck and face that occurs when his blood pressure goes up. denies any palpitations. no sob. no pnd, orthopnea, or LE edema. no syncope or near syncope. - History Source History Provided By: Patient, Medical Record Limitations to Obtaining History: No Limitations - Past Medical History Cardio/Vascular: Yes: CAD, HTN, Hyperlipdemia, [place] Musculoskeletal: Yes: Chronic low back pain, Other (multiple previous back surgeries, chronic back pain) - Alcohol/Substance Use Hx Alcohol Use: No - Smoking History Smoking history: Current every day smoker Have you smoked in the past 12 months: No Aproximately how many cigarettes per day: 2 If you are a former smoker, when did you quit?: 2 MO - Social History ADL: Independent History of Recent Travel: No Home Medications - Allergies Allergies/Adverse Reactions: Allergies Allergy/AdvReac Type Severity Reaction Status Date / Time Penicillins Allergy Verified 02/03/17 12:42 - Home Medications Home Medications: Ambulatory Orders FENTANYL 100mcg PATCH [DURAGESIC 100mcg PATCH -] 1 patch TD Q3D 01/14/16 Oxycodone HCl 1 - 2 tab PO Q6H PRN 01/14/16 Aspirin [ASA -] 81 mg PO DAILY 02/08/16 Lisinopril [Zestril] 20 mg PO DAILY 02/08/16 Amlodipine Besylate [Norvasc -] 5 mg PO DAILY 05/01/16 Isosorbide Mononitrate [Imdur -] 30 mg PO DAILY 05/01/16 Nitroglycerin Sublingual [Nitrostat -] 0.4 mg SL PRN PRN 02/03/17 Family Disease History - Family Disease History Family Disease History: Heart Disease: Mother, Brother Review of Systems - Review of Systems Constitutional: denies: No Symptoms, Chills, Diaphoresis, Fever, Lethargy, Loss of Appetite, Malaise, Night Sweats, Unintentional Wgt. Loss, Weakness, Other Eyes: denies: No Symptoms, Blind Spots, Blurred Vision, Double Vision, Eye Pain , Floaters, Photophobia, Recent Change in Vision, Other HENT: denies: No Symptoms, Difficult Swallowing, Ear Discharge, Ear Pain, Epistaxis, Gingival Bleeding, Hearing Loss, Mouth Swelling, Nasal Congestion, Ocular Prosthesis, Throat Pain, Toothache, Ringing in Ears, Other Neck: denies: No Symptoms, Decreased ROM, Lumps, Pain on Movement, Stiffness, Swollen Glands, Tenderness, Other Cardiovascular: reports: Chest Pain, Palpitations. denies: No Symptoms, Edema, Shortness of Breath, Other Respiratory: denies: No Symptoms, Cough, Exercise Intolerance, Hemoptysis, Orthopnea, PND, Snoring, SOB, SOB on Exertion, Wheezing, Other Gastrointestinal: denies: No Symptoms, Abdominal Pain, Bloating, Constipation, Diarrhea, Dysphagia, Indigestion, Melena, Nausea, Rectal Bleeding, Vomiting, Vomiting Blood, Other Genitourinary: denies: No Symptoms, Burning, Discharge, Dysuria, Flank Pain, Frequency, Hematuria, Incontinence, Lesions, Menses, Pain, Testicular Mass, Testicular Pain, Testicular Swelling, Urgency, Vaginal Bleeding, Other Breasts: denies: No Symptoms Reported, See HPI, Breast Implants, Discharge from Nipple, Lumps, Pain, Skin Changes, Other Musculoskeletal: reports: Back Pain. denies: No Symptoms, Crepitus, Decreased ROM, Extremity Pain, Joint Pain, Joint Swelling, Muscle Pain, Muscle Cramps, Muscle Weakness, Other Integumentary: denies: No Symptoms, Blister, Bruising, Change in Color, Eczema, Erythema, Incision, Lesions, Lump, Pallor, Pruritis, Rash, Wound, Other Neurological: denies: No Symptoms, Change in LOC, Change in Speech, Confusion, Dizziness, Headache, Incoordination, Numbness, Parasthesia, Pre-Existing Deficit , Seizure, Syncope, Tremors, Unsteady Gait, Weakness, Other Endocrine: denies: No Symptoms, Excessive Sweating, Flushing, Increased Hunger, Increased Thirst, Intolerance to Cold, Intolerance to Heat, Unexplained Weight Gain, Unexplained Weight Loss, Other Hematology/Lymphatic: denies: No Symptoms, Easily Bruised, Excessive Bleeding, Swollen Glands, Other Psychiatric: reports: Altered Sleep Pattern. denies: No Symptoms, Anxiety, Depression, Hallucinations, Panic, Paranoia, Suicidal, Other - Risk Factors Known Risk Factors: Yes: Hypercholesterolemia, Hypertension, Prior [place] /Emb Stroke (reported by patient) Vital Signs: Vital Signs Temperature 97.8 F 02/04/17 07:25 Pulse Rate 68 02/04/17 07:25 Respiratory Rate 20 02/04/17 07:26 Blood Pressure 139/78 02/04/17 07:25 O2 Sat by Pulse Oximetry (%) 98 02/04/17 07:26 Constitutional: Yes: Well Nourished, No Distress, Anxious Eyes: Yes: WNL, Conjunctiva Clear, EOM Intact, PERRL HENT: Yes: WNL, Atraumatic, Normocephalic Neck: Yes: WNL, Supple, Trachea Midline Respiratory: Yes: WNL, Regular, CTA Bilaterally. No: Rales, Rhonchi, Wheezes Gastrointestinal: Yes: WNL, Normal Bowel Sounds, Soft. No: Distention, Tenderness Cardiovascular: Yes: WNL, Regular Rate and Rhythm. No: Bradycardia, Tachycardia , Pulse Irregular, Gallop, Rub, Varicosities JVD: No Carotid Bruit: No PMI: Non-Displaced Heart Sounds: Yes: S1, S2. No: Split S2, S3, S4, Clicks, Gallop, Rub, Bruit Murmur: No: Systolic Murmur, Diastolic Murmur Musculoskeletal: Yes: Back Pain Extremities: Yes: WNL Edema: No Peripheral Pulses WNL: Yes Peripheral Pulses: 2+ Left Doralis Pedis, 2+ Right Dorsalis Pedis Integumentary: Yes: WNL Neurological: Yes: WNL, Alert, Oriented, Cran Nerves II-XII Intact ...Motor Strength: WNL Psychiatric: Yes: WNL, Alert, Oriented - Other Data Labs, Other Data: CBC, BMP 02/04/17 05:10 02/04/17 05:10 INR, PTT INR 1.07 (0.82-1.09) 02/03/17 13:15 Troponin, BNP 02/03/17 02/04/17 02/04/17 18:30 05:10 05:10 Troponin I < 0.02 < 0.02 Cancelled Troponin, BNP 02/03/17 02/04/17 02/04/17 18:30 05:10 05:10 Troponin I < 0.02 < 0.02 Cancelled ekg-NSR 86bpm, no sig ST abnl Echo: Report Reviewed Prior Cardiac Procedures: Cardiac Catheterization Ejection Fraction %: LVEF > or = 40 % Imaging - Results Chest X-ray: Report Reviewed, Image Reviewed EKG: Report Reviewed, Image Reviewed Other: Report Reviewed, Image Reviewed (tele-nsr, sinus tach, no sig arrhythmias recorded) Assessment/Plan 46 year old man with a history of HTN, chronic back pain with multiple spine surgeries with reported complication of MRSA bacteremia 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 Pt. seen and examined today in [facility]. Pt states that he still currently has the chest pain. Also again notes the fullness/flushing sensation in his neck and face that occurs when his blood pressure goes up. denies any palpitations. no sob. no pnd, orthopnea, or LE edema. no syncope or near syncope. Chest pain-atypical, unlikely ACS -cardiac enzymes wnl x 4 -no ischemia on ekg -no arrhythmias on telemetry -last cardiac cath 01/2016 showed no sig CAD, possible small vessell CAD -last echo 05/02/16 showed low normal LVEF otherwise no sig structural heart disease -CTA chest/abd 05/02/16 showed no evidence of aortic aneurysm or dissection -cont ASA 81mg daily, Imdur, Norvasc for possible small vessel CAD -cont Lisinopril -pt is very concerned about his chest pain. he feels that it is the same as prior to his reported [place] in the past and it is different than his other admissions for chest pain. We discussed that the most definitive way to assess for obstructive CAD is cardiac cath however he is very anxious to undergo another cardiac cath and would prefer to start with a stress test. -Will plan for a persantine nuclear stress test tomorrow (Cannot walk on treadmill due to back pain) and will repeat echo tomorrow HTN-adequately controlled -cont current medical regimen Episodic palpitations associated with flushing, headache, HTN -not reported on this presentation but was in the past. -needs endocrine evaluation for pheochromocytoma work up if not already done, can be done as outpatient
[2017-02-04 18:59] LABS: CPK 64 IU/L (39-308)
[2017-02-04 19:00] LABS: TROPONIN I < 0.02 ng/ml (0.00-0.05)
--- NOTE | 2017-02-04 19:54 | PN ---
Progress Note, Physician History of Present Illness: Pt still c/o chest pressure w/ some relief w/ SL NTG - Current Medication List Current Medications: Active Medications Amlodipine Besylate (Norvasc -) 5 mg PO DAILY [facility] Last Admin: 02/04/17 09:12 Dose: 5 mg Aspirin (Asa -) 81 mg PO DAILY [facility] Last Admin: 02/04/17 09:13 Dose: 81 mg Fentanyl (Duragesic 100mcg Patch -) 1 patch TD Q72H [facility] Last Admin: 02/03/17 18:47 Dose: 1 patch Heparin Sodium (Porcine) (Heparin -) 5,000 unit SQ BID [facility] Last Admin: 02/04/17 09:13 Dose: Not Given Isosorbide Mononitrate (Imdur -) 30 mg PO DAILY [facility] Last Admin: 02/04/17 09:12 Dose: 30 mg Lisinopril (Prinivil) 20 mg PO DAILY [facility] Last Admin: 02/04/17 09:12 Dose: 20 mg Nitroglycerin (Nitrostat -) 0.4 mg SL Q5M PRN PRN Reason: CHEST PAIN Last Admin: 02/03/17 22:28 Dose: 0.4 mg Oxycodone HCl (Roxicodone -) 30 mg PO Q4H PRN PRN Reason: PAIN Last Admin: 02/04/17 19:51 Dose: 30 mg - Objective Vital Signs: Vital Signs Temperature 98.3 F 02/04/17 18:00 Pulse Rate 69 02/04/17 18:00 Respiratory Rate 20 02/04/17 18:00 Blood Pressure 116/60 02/04/17 18:00 O2 Sat by Pulse Oximetry (%) 98 02/04/17 13:57 Constitutional: Yes: No Distress HENT: Yes: WNL Neck: Yes: WNL, Supple Cardiovascular: Yes: WNL, Regular Rate and Rhythm Respiratory: Yes: WNL, Regular, CTA Bilaterally Gastrointestinal: Yes: WNL, Normal Bowel Sounds, Soft Labs: CBC, BMP 02/04/17 05:10 02/04/17 05:10 INR, PTT INR 1.07 (0.82-1.09) 02/03/17 13:15 Problem List - Problems (1) Chest pain Assessment/Plan: Pt refusing to do cardiac cath Stress test in am As per cardio Code(s): R07.9 - CHEST PAIN, UNSPECIFIED (2) HTN (hypertension) Assessment/Plan: BP stable Cont antihypertensives Code(s): I10 - ESSENTIAL (PRIMARY) HYPERTENSION (3) HLD (hyperlipidemia) Code(s): E78.5 - HYPERLIPIDEMIA, UNSPECIFIED (4) Chronic pain syndrome Code(s): G89.4 - CHRONIC PAIN SYNDROME (5) CAD (coronary artery disease) Code(s): I25.10 - ATHSCL HEART DISEASE OF [place] CORONARY ARTERY W/O ANG PCTRS Qualifiers: Coronary Disease-Associated Artery/Lesion type: unspecified vessel or lesion type [place] vs. transplanted heart: [place] heart Associated angina: with unspecified angina Qualified Code(s): I25.119 - Atherosclerotic heart disease of [place] coronary artery with unspecified angina pectoris; I25.119 - Atherosclerotic heart disease of [place] coronary artery with unspecified angina pectoris; I25.119 - Atherosclerotic heart disease of [place] coronary artery with unspecified angina pectoris; I25.119 - Atherosclerotic heart disease of [place] coronary artery with unspecified angina pectoris
[2017-02-05] MEDS: oxyCODONE HCL 5 MG TABLET PO PRN ×4 (00:22→18:54)
--- NOTE | 2017-02-05 08:27 | PN ---
Progress Note, Physician History of Present Illness: seen and examined today in [facility]. no overnight events. no new complaints. - Current Medication List Current Medications: Active Medications Amlodipine Besylate (Norvasc -) 5 mg PO DAILY [facility] Last Admin: 02/04/17 09:12 Dose: 5 mg Aspirin (Asa -) 81 mg PO DAILY [facility] Last Admin: 02/04/17 09:13 Dose: 81 mg Fentanyl (Duragesic 100mcg Patch -) 1 patch TD Q72H [facility] Last Admin: 02/03/17 18:47 Dose: 1 patch Heparin Sodium (Porcine) (Heparin -) 5,000 unit SQ BID [facility] Last Admin: 02/04/17 21:01 Dose: Not Given Isosorbide Mononitrate (Imdur -) 30 mg PO DAILY [facility] Last Admin: 02/04/17 09:12 Dose: 30 mg Lisinopril (Prinivil) 20 mg PO DAILY [facility] Last Admin: 02/04/17 09:12 Dose: 20 mg Nitroglycerin (Nitrostat -) 0.4 mg SL Q5M PRN PRN Reason: CHEST PAIN Last Admin: 02/03/17 22:28 Dose: 0.4 mg Oxycodone HCl (Roxicodone -) 30 mg PO Q4H PRN PRN Reason: PAIN Last Admin: 02/05/17 06:32 Dose: 30 mg - Objective Vital Signs: Vital Signs Temperature 98.0 F 02/05/17 05:39 Pulse Rate 98 H 02/05/17 05:39 Respiratory Rate 20 02/05/17 05:39 Blood Pressure 102/66 02/05/17 05:39 O2 Sat by Pulse Oximetry (%) 97 02/04/17 20:59 Constitutional: Yes: No Distress, Calm Eyes: Yes: Conjunctiva Clear, EOM Intact, PERRL HENT: Yes: Atraumatic, Normocephalic Neck: Yes: Supple, Trachea Midline Cardiovascular: Yes: Regular Rate and Rhythm, S1, S2. No: Bradycardia, Tachycardia, Pulse Irregular, Bruit, JVD, Gallop, Murmur, Rub, S3, S4, Varicosities Respiratory: Yes: Regular, CTA Bilaterally. No: Rales, Rhonchi, Wheezes Gastrointestinal: Yes: Normal Bowel Sounds, Soft. No: Distention, Tenderness Musculoskeletal: Yes: Back Pain Edema: No Peripheral Pulses WNL: Yes Peripheral Pulses: Left Doralis Pedis: 2+, Right Dorsalis Pedis: 2+ Neurological: Yes: Alert, Oriented Psychiatric: Yes: Alert, Oriented Labs: CBC, BMP 02/04/17 05:10 02/04/17 05:10 INR, PTT INR 1.07 (0.82-1.09) 02/03/17 13:15 - ....Imaging Chest X-ray: Report Reviewed, Image Reviewed EKG: Report Reviewed, Image Reviewed Other: Report Reviewed, Image Reviewed (tele-nsr, sinus carlos, sinus tach, no sig arrhythmias) Assessment/Plan 46 year old man with a history of HTN, chronic back pain with multiple spine surgeries with reported complication of MRSA bacteremia and 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 Chest pain-atypical, unlikely ACS -f/up nuclear stress test and echo today -if no sig ischemia and no sig structural heart disease on echo pt would be acceptable for discharge home from a cardiac standpoint with close f/up in office recommended -cont ASA 81mg daily, Imdur, Norvasc for possible small vessel CAD -cont Lisinopril HTN-adequately controlled -cont current medical regimen Episodic palpitations associated with flushing, headache, HTN -not reported on this presentation but was in the past. -needs endocrine evaluation for pheochromocytoma work up if not already done, can be done as outpatient
[2017-02-05] MEDS ORDERED: DIPYRIDAMOLE STRESS TEST 50 MG in DEXTROSE 5%-WATER - 40 ML IVPB ONE (10:00)
[2017-02-05] MEDS ORDERED: AMINOPHYLLINE 250 MG/10 ML VIAL IVPUSH ONE (12:30)
[2017-02-05] MEDS ORDERED: AMINOPHYLLINE 250 MG/10 ML VIAL ONE (12:30)
[2017-02-05] MEDS: ISOSORBIDE MONONITRATE 30 MG TAB.SR.24H (FP) PO SCH (12:56)
[2017-02-05] MEDS: ASPIRIN 81 MG CHEWABLE TABLETS PO SCH (12:56)
[2017-02-05] MEDS: LISINOPRIL 20 MG TABLET (FP) PO SCH (12:56)
[2017-02-05] MEDS: amLODIPine BESYLATE 5 MG TABLET (FP) PO SCH (12:56)
[2017-02-05] MEDS: HEPARIN NA (PORCINE) 5,000 UNITS/ML 1ML VIAL SQ SCH ×2 (12:57→21:24)
--- NOTE | 2017-02-05 17:33 | PN ---
Progress Note, Physician History of Present Illness: No new complaints - Current Medication List Current Medications: Active Medications Amlodipine Besylate (Norvasc -) 5 mg PO DAILY [facility] Last Admin: 02/05/17 12:56 Dose: 5 mg Aspirin (Asa -) 81 mg PO DAILY [facility] Last Admin: 02/05/17 12:56 Dose: 81 mg Fentanyl (Duragesic 100mcg Patch -) 1 patch TD Q72H [facility] Last Admin: 02/03/17 18:47 Dose: 1 patch Heparin Sodium (Porcine) (Heparin -) 5,000 unit SQ BID [facility] Last Admin: 02/05/17 12:57 Dose: Not Given Isosorbide Mononitrate (Imdur -) 30 mg PO DAILY [facility] Last Admin: 02/05/17 12:56 Dose: 30 mg Lisinopril (Prinivil) 20 mg PO DAILY [facility] Last Admin: 02/05/17 12:56 Dose: 20 mg Nitroglycerin (Nitrostat -) 0.4 mg SL Q5M PRN PRN Reason: CHEST PAIN Last Admin: 02/03/17 22:28 Dose: 0.4 mg Oxycodone HCl (Roxicodone -) 30 mg PO Q4H PRN PRN Reason: PAIN Last Admin: 02/05/17 12:56 Dose: 30 mg - Objective Vital Signs: Vital Signs Temperature 97.9 F 02/05/17 16:13 Pulse Rate 83 02/05/17 16:13 Respiratory Rate 20 02/05/17 16:13 Blood Pressure 119/71 02/05/17 16:13 O2 Sat by Pulse Oximetry (%) 97 02/05/17 15:00 Constitutional: Yes: Well Nourished HENT: Yes: WNL Neck: Yes: WNL, Supple Cardiovascular: Yes: WNL, Regular Rate and Rhythm Respiratory: Yes: WNL, Regular, CTA Bilaterally Gastrointestinal: Yes: WNL, Normal Bowel Sounds, Soft Labs: CBC, BMP 02/04/17 05:10 02/04/17 05:10 INR, PTT INR 1.07 (0.82-1.09) 02/03/17 13:15 Problem List - Problems (1) Chest pain Assessment/Plan: Stress test showed ischemia? Await cardio recommendations Code(s): R07.9 - CHEST PAIN, UNSPECIFIED (2) HTN (hypertension) Assessment/Plan: BP stable Cont antihypertensives Code(s): I10 - ESSENTIAL (PRIMARY) HYPERTENSION (3) HLD (hyperlipidemia) Code(s): E78.5 - HYPERLIPIDEMIA, UNSPECIFIED (4) Chronic pain syndrome Code(s): G89.4 - CHRONIC PAIN SYNDROME (5) CAD (coronary artery disease) Code(s): I25.10 - ATHSCL HEART DISEASE OF [place] CORONARY ARTERY W/O ANG PCTRS Qualifiers: Coronary Disease-Associated Artery/Lesion type: unspecified vessel or lesion type [place] vs. transplanted heart: [place] heart Associated angina: with unspecified angina Qualified Code(s): I25.119 - Atherosclerotic heart disease of [place] coronary artery with unspecified angina pectoris; I25.119 - Atherosclerotic heart disease of [place] coronary artery with unspecified angina pectoris; I25.119 - Atherosclerotic heart disease of [place] coronary artery with unspecified angina pectoris; I25.119 - Atherosclerotic heart disease of [place] coronary artery with unspecified angina pectoris
[2017-02-05 18:27] LABS: CPK 79 IU/L (39-308); TROPONIN I < 0.02 ng/ml (0.00-0.05)
[2017-02-06] MEDS: oxyCODONE HCL 5 MG TABLET PO PRN ×2 (00:48→07:21)
--- NOTE | 2017-02-06 09:14 | PN ---
Progress Note, Physician Chief Complaint: feels well no complaints Ambulating without chest pain TELE: NSR Stress test with very mild apical defect, normal EF Echo: normal EF, no wall motion abn CPK and TnI negative x3 - Current Medication List Current Medications: Active Medications Amlodipine Besylate (Norvasc -) 5 mg PO DAILY [facility] Last Admin: 02/05/17 12:56 Dose: 5 mg Aspirin (Asa -) 81 mg PO DAILY [facility] Last Admin: 02/05/17 12:56 Dose: 81 mg Fentanyl (Duragesic 100mcg Patch -) 1 patch TD Q72H [facility] Last Admin: 02/03/17 18:47 Dose: 1 patch Heparin Sodium (Porcine) (Heparin -) 5,000 unit SQ BID [facility] Last Admin: 02/05/17 21:24 Dose: Not Given Isosorbide Mononitrate (Imdur -) 30 mg PO DAILY [facility] Last Admin: 02/05/17 12:56 Dose: 30 mg Lisinopril (Prinivil) 20 mg PO DAILY [facility] Last Admin: 02/05/17 12:56 Dose: 20 mg Miscellaneous (Duragesic Patch Waste) 1 each TD PRN PRN Last Admin: 02/06/17 07:45 Dose: 1 each Nitroglycerin (Nitrostat -) 0.4 mg SL Q5M PRN PRN Reason: CHEST PAIN Last Admin: 02/03/17 22:28 Dose: 0.4 mg Oxycodone HCl (Roxicodone -) 30 mg PO Q4H PRN PRN Reason: PAIN Last Admin: 02/06/17 07:21 Dose: 30 mg - Objective Vital Signs: Vital Signs Temperature 98.4 F 02/06/17 07:23 Pulse Rate 68 02/06/17 07:23 Respiratory Rate 20 02/06/17 07:23 Blood Pressure 128/76 02/06/17 07:23 O2 Sat by Pulse Oximetry (%) 97 02/05/17 23:00 Constitutional: Yes: Calm Cardiovascular: Yes: Regular Rate and Rhythm Respiratory: Yes: CTA Bilaterally Gastrointestinal: Yes: Soft Edema: No Neurological: Yes: Alert, Oriented ...Motor Strength: WNL Labs: CBC, BMP 02/04/17 05:10 02/04/17 05:10 INR, PTT INR 1.07 (0.82-1.09) 02/03/17 13:15 - ....Imaging EKG: Image Reviewed Assessment/Plan Assessment/Plan 46 year old man with a history of HTN, chronic back pain with multiple spine surgeries with reported complication of MRSA bacteremia and 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 -Chest pain symptoms are atypical. LVEF is normal and serial cardiac enzymes are negative. Tele has shown no arrhythmias. His discomfort has subsided and he is now ambulating the hallways with no pain at all. -The stress defect is mild and may well represent soft tissue attenuation, his body habitus supports that. Other possibility is small vessel dz. In 2016, he had a similar mild stress defect and subsequent cath was non- obstructive. -Lengthy discussion about results and options. I have recommended medical therapy with addition of Ranexa 500mg BID and close outpatient follow up. With atypical sx, normal EF and negative C.E, I do not think repeat cath is indicated and risks >> potential benefits. He will follow up with us in 1-2 weeks, if sx persist can consider CTA coronary.
[2017-02-06] MEDS ORDERED: FENTANYL PATCH WASTE TD PRN (09:36)
[2017-02-06] MEDS ORDERED: fentaNYL 100mcg/hr PATCH.TD72 TD SCH (09:36)
[2017-02-06] MEDS: LISINOPRIL 20 MG TABLET (FP) PO SCH (09:44)
[2017-02-06] MEDS: ISOSORBIDE MONONITRATE 30 MG TAB.SR.24H (FP) PO SCH (09:44)
[2017-02-06] MEDS: amLODIPine BESYLATE 5 MG TABLET (FP) PO SCH (09:44)
[2017-02-06] MEDS: ASPIRIN 81 MG CHEWABLE TABLETS PO SCH (09:44)
[2017-02-06] MEDS ORDERED: RANOLAZINE E.R. 500 MG TABLET (FP) PO SCH (10:00)
[2017-02-06 10:26] VITALS: BP 140/72; PULSE 69; TEMP 98.6
== END 2017-02-06 10:36 | disposition home or self-care (01) ==
LOC: JER 12:39 → JERBED 16:30 → J4W 17:35
PROVIDERS: ADMIT Internal Medicine; ATTEND Internal Medicine
PROC: 3E033GC Introduction of Other Therapeutic Substance into Peripheral Vein, Percutaneous Approach (ICD-10-PCS; principal; 2017-02-03)
DX: R07.89 Other chest pain (principal); I10 Essential (primary) hypertension; I25.119 Atherosclerotic heart disease of native coronary artery with unspecified angina pectoris; F17.210 Nicotine dependence, cigarettes, uncomplicated; E78.5 Hyperlipidemia, unspecified; M54.5 Low back pain; G89.4 Chronic pain syndrome; Z86.14 Personal history of Methicillin resistant Staphylococcus aureus infection; Z79.82 Long term (current) use of aspirin; Z88.0 Allergy status to penicillin; Z98.61 Coronary angioplasty status
CPT/HCPCS: 36415; 71010-TC; 78452-TC; 80053; 80307; 83690; 83880; 84484; 85025; 85610; 85730; 93005; 93010; 93017; 93306-TC; 96374; 99285-25; A9502; G0378

== ENCOUNTER 2017-03-15 01:00 | Emergency (ER) | payer OTHER ==
[2017-03-15 01:32] VITALS: BP 120/73; PULSE 82; TEMP 98; BMI 30.2
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
[2017-03-15] MEDS ORDERED: SODIUM CHLORIDE 0.9% 500 ML INFUS.BAG IV ONE (04:37)
[2017-03-15] MEDS ORDERED: morphine CARPU-JECT 4 MG/1 ML DISP.SYRIN IVPUSH ONE ×3 (04:37→06:51)
[2017-03-15] MEDS ORDERED: morphine SULFATE 4 MG/ML VIAL ONE ×2 (05:20→06:56)
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
== END 2017-03-15 07:00 | disposition left against medical advice (07) ==
LOC: JER 01:00
PROC: 3E033NZ Introduction of Analgesics, Hypnotics, Sedatives into Peripheral Vein, Percutaneous Approach (ICD-10-PCS; principal; 2017-03-15)
DX: M54.5 Low back pain (principal); V68.4XXA Person boarding or alighting a heavy transport vehicle injured in noncollision transport accident, initial encounter; Y92.488 Other paved roadways as the place of occurrence of the external cause; Y93.89 Activity, other specified; Y99.8 Other external cause status; I25.10 Atherosclerotic heart disease of native coronary artery without angina pectoris; Z98.61 Coronary angioplasty status; I10 Essential (primary) hypertension; I25.2 Old myocardial infarction; E78.00 Pure hypercholesterolemia, unspecified; Z79.82 Long term (current) use of aspirin
CPT/HCPCS: 99281-25

== ENCOUNTER 2017-05-05 10:15 | Emergency (ER) | payer OTHER ==
[2017-05-05 10:29] VITALS: BP 124/80; PULSE 84; TEMP 98.7; BMI 30.2
--- NOTE | 2017-05-05 10:45 | PDOC ---
History of Present Illness <DiegoColby - Last Filed: 05/05/17 12:38> - History of Present Illness Initial Comments: 05/05/17 11:25 The patient is a 46 year old male with a history of HTN, CAD, OR who presents for evaluation of cough, body aches, sore throat, and nasal congestion. The patient reports that his symptoms began 3 days prior to presentation when he arrived back from [place] and was out shoveling snow. He notes that he usually get's similar symptoms around this time of the year which improve with a [id number]-álvaro. The patient denies fevers, chills, SOB, chest pain, abdominal pain, nausea, vomiting, or changes with urination or bowel movements. <Allen Cruz - Last Filed: 05/05/17 12:49> - General Chief Complaint: Respiratory Stated Complaint: COLD SYMPTOMS Time Seen by Provider: 05/05/17 10:44 Past History <DiegoColby - Last Filed: 05/05/17 12:38> - Past Medical History Cancer: No Cardiac Disorders: Yes (OR 2008; s/p cath) COPD: No HTN: Yes Hypercholesterolemia: Yes Lung CA: No - Surgical History Abdominal Surgery: (SPLENECTOMY; RIGHT KIDNEY REMOVED) Appendectomy: Yes Cardiac Surgery: Yes (cardiac cath no stents) Orthopedic Surgery: Yes (spinal sx x10) - Immunization History Immunization Up to Date: Yes - Suicide/Smoking/Psychosocial Hx Smoking Status: Yes Smoking History: Current some day smoker Years of Tobacco Use: 15 Have you smoked in the past 12 months: No Number of Cigarettes Smoked Daily: 1 If you are a former smoker, when did you quit?: 2 MO Cigars Per Day: 0 Information on smoking cessation initiated: No 'Breaking Loose' booklet given: 02/03/17 Hx Alcohol Use: No Drug/Substance Use Hx: No Substance Use Type: None Hx Substance Use Treatment: No <Allen Cruz - Last Filed: 05/05/17 12:49> - Past Medical History Allergies/Adverse Reactions: Allergies Allergy/AdvReac Type Severity Reaction Status Date / Time Penicillins Allergy Verified 05/05/17 10:29 Home Medications: Ambulatory Orders FENTANYL 100mcg PATCH [DURAGESIC 100mcg PATCH -] 1 patch TD Q3D 01/14/16 Oxycodone HCl 1 - 2 tab PO Q6H PRN 01/14/16 Aspirin [ASA -] 81 mg PO DAILY 02/08/16 Lisinopril [Zestril] 20 mg PO DAILY 02/08/16 Amlodipine Besylate [Norvasc -] 5 mg PO DAILY 05/01/16 Isosorbide Mononitrate [Imdur -] 30 mg PO DAILY 05/01/16 Nitroglycerin Sublingual [Nitrostat -] 0.4 mg SL PRN PRN 02/03/17 Fentanyl Patch Waste [Duragesic Patch Waste] 1 each TD PRN PRN #0 each 02/06/17 Azithromycin 250 mg PO DAILY #4 tablet 05/05/17 Review of Systems - Review of Systems Comments:: 05/05/17 11:33 Constitutional: No fevers, chills, fatigue, malaise HEENT: Nasal Congestion. No Rhinorrhea, visual changes Cardiovascular: No chest pain, syncope, palpitations, lightheadedness Respiratory: Cough. No SOB, Hemoptysis, Gastrointestinal: No Abdominal pain, Nausea, Vomiting, Constipation, Diarrhea, Melena Genitourinary: No Dysuria, Frequency, Urgency, Hesitancy, Hematuria, Flank pain Musculoskeletal: No Myalgia, arthralgia Skin: No rashes, bruising, pallor Neurologic: No Headache, Dizziness, Numbness, Weakness, or Tingling Psychiatric: No Hallucinations. No SI or HI <Allen Cruz - Last Filed: 05/05/17 12:49> *Physical Exam - Vital Signs Last Vital Signs Temp Pulse Resp BP Pulse Ox 98.7 F 84 18 124/80 97 05/05/17 10:05/05/17 10:05/05/17 10:05/05/17 10:05/05/17 10:26 <Colby Cortez - Last Filed: 05/05/17 12:38> - Vital Signs Last Vital Signs Temp Pulse Resp BP Pulse Ox 98.7 F 84 18 124/80 97 05/05/17 10:05/05/17 10:05/05/17 10:05/05/17 10:05/05/17 10:26 - Physical Exam Comments: 05/05/17 11:35 General Appearance: Nourished. No Apparent Distress HEENT: EOMI, BLACK. Clear TMs. No Pharyngeal Erythema, Tonsillar Exudate, Tonsillar Erythema Neck: No Cervical Lymphadenopathy Respiratory/Chest: Lungs Clear, Normal Breath Sounds. No Crackles, Rales, Rhonchi, Wheezing Cardiovascular: Regular Rhythm, Regular Rate. No Murmur, Gallops, Rubs Gastrointestinal/Abdominal: Normal Bowel Sounds, Soft. No Guarding, Rebound, Tenderness Musculoskeletal: No CVA Tenderness Extremity: Normal Capillary Refill Integumentary: Normal Color, Dry, Warm Neurologic: Fully Oriented, Alert, Normal Mood/Affect, Normal Response, <Allen Cruz - Last Filed: 05/05/17 12:49> ED Treatment Course - LABORATORY CBC & Chemistry Diagram: 05/05/17 11:30 05/05/17 11:30 - ADDITIONAL ORDERS Additional order review: Laboratory Results 05/05/17 11:30 Sodium 136 Potassium 4.5 Chloride 102 Carbon Dioxide 28 D Anion Gap 6 L BUN 13 D Creatinine 0.8 Creat Clearance w eGFR > 60 Random Glucose 89 Calcium 9.1 Total Bilirubin 0.8 D AST 18 ALT 44 D Alkaline Phosphatase 90 Total Protein 7.5 Albumin 4.2 05/05/17 11:30 RBC 5.52 MCV 87.2 MCHC 34.1 RDW 13.6 MPV 9.9 Neutrophils % 78.0 D Lymphocytes % 11.9 D Monocytes % 7.2 Eosinophils % 2.2 Basophils % 0.7 <Colby Cortez - Last Filed: 05/05/17 12:38> - LABORATORY CBC & Chemistry Diagram: 05/05/17 11:30 05/05/17 11:30 <Allen Cruz - Last Filed: 05/05/17 12:49> Medical Decision Making - Medical Decision Making 05/05/17 11:35 The patient is a 46 year old male with a history of HTN, CAD, OR who presents for evaluation of cough, body aches, sore throat, and nasal congestion. Given the patient's history, it is likely his symptoms are due to a viral syndrome. However given his PMH, we will obtain a cbc, cmp, and chest plain film to evaluate further. We will continue to monitor and reassess. 05/05/17 12:49 Lab results and chest plain film are unremarkable. We are comfortable discharging the patient home at this time with Primary care provider follow up. We discussed the results and the plan with the patient who voiced understanding and is agreeable with the plan. <Allen Cruz - Last Filed: 05/05/17 12:49> *DC/Admit/Observation/Transfer <Colby Cortez - Last Filed: 05/05/17 12:38> - Discharge Dispostion Admit: No <Allen Cruz - Last Filed: 05/05/17 12:49> Diagnosis at time of Disposition: URI (upper respiratory infection) Qualifiers: URI type: unspecified URI Qualified Code(s): J06.9 - Acute upper respiratory infection, unspecified - Discharge Dispostion Disposition: HOME Condition at time of disposition: Good - Prescriptions Prescriptions: Azithromycin 250 mg PO DAILY #4 tablet - Referrals Referrals: Yvon Meeks MD [Primary Care Provider] - - Patient Instructions Printed Discharge Instructions: DI for Acute Bronchitis Additional Instructions: Take the azithromycin as prescribed to treat your bronchitis. Follow up with your primary doctor within 1 week for a re-evaluation. If you experience worsening symptoms, chest pain, shortness of breath, or any other concerning symptoms, return to the ER immediately. - Post Discharge Activity
[2017-05-05 11:46] LABS: BASO % 0.7 % (0-2.0); EOS % 2.2 % (0-4.5); HEMATOCRIT 48.1 % (35.4-49); HEMOGLOBIN 16.4 GM/dL (11.7-16.9); LYMPH % 11.9 % (8-40); MCH 29.7 pg (25.7-33.7); MCHC 34.1 g/dl (32.0-35.9); MEAN CELL VOLUME 87.2 fl (80-96); MEAN PLT VOLUME 9.9 fl (7.5-11.1); MONO % 7.2 % (3.8-10.2); PLATELET COUNT 159 K/MM3 (134-434); RBC 5.52 M/mm3 (4.00-5.60); RDW 13.6 % (11.9-15.9); WHITE BLOOD COUNT 8.2 K/mm3 (4.0-10.0)
--- NOTE | 2017-05-05 12:01 | PDOC ---
Attending Attestation - Resident Resident Name: Allen Cruz - ED Attending Attestation I have performed the following: I have examined & evaluated the patient, The case was reviewed & discussed with the resident, I agree w/resident's findings & plan, Exceptions are as noted - HPI HPI: 05/05/17 11:59 46 M with h/o HTN, CAD/OK presenting to ER with 3 days of cough and congestion. Pt states that he just flew in from [place]. He also endorses diffuse myalgias. Denies F/C. Denies CP/SOB. Denies leg swelling or h/o DVT/PE. - Physicial Exam PE: 05/05/17 12:00 "GENERAL: Awake, alert, and fully oriented, in no acute distress HEAD: No signs of trauma EYES: PERRLA, EOMI, sclera anicteric, conjunctiva clear ENT: Auricles normal inspection, hearing grossly normal, nares patent, oropharynx clear without exudates. Moist mucosa NECK: Nontender, no stepoffs, Normal ROM, supple, no lymphadenopathy, JVD, or masses LUNGS: Breath sounds equal, clear to auscultation bilaterally. No wheezes, and no crackles HEART: Regular rate and rhythm, normal S1 and S2, no murmurs, rubs or gallops ABDOMEN: Soft, nontender, normoactive bowel sounds. No guarding, no rebound. No masses EXTREMITIES: Normal range of motion, no edema. No clubbing or cyanosis. No cords, erythema, or tenderness NEUROLOGICAL: Cranial nerves II through XII intact. 5/5 strength and sensation in all extremities, Normal speech, normal gait SKIN: Warm, Dry, normal turgor, no rashes or lesions noted. " - Medical Decision Making 05/05/17 12:00 46 M with cough and congestion x 3 days. Well appearing with normal vitals. Normal lung exam. Likely viral URI. - CXR - Labs 05/05/17 12:44 CXR and labs unremarkable. Pt with possible bronchitis. WIll DC with Z-pack. Pt well appearing, vitals normal. Clinically stable for DC at this time. I discussed the physical exam findings, ancillary test results and final diagnoses with the patient. I answered all of the patient's questions. The patient was satisfied with the care received and felt comfortable with the discharge plan and treatment plan. The patient agrees to follow up with the primary care physician within 24-72 hours.
[2017-05-05 12:20] LABS: ALBUMIN 4.2 g/dl (3.4-5.0); ALK PHOS 90 U/L (45-117); ANION GAP 6 (8-16); BILIRUBIN,TOTAL 0.8 mg/dL (0.2-1.0); BLOOD UREA NITROGEN 13 mg/dL (7-18); CALCIUM 9.1 mg/dL (8.5-10.1); CHLORIDE 102 mmol/L (98-107); CO2 28 mmol/L (21-32); CREATININE 0.8 mg/dL (0.7-1.3); GLUCOSE,RANDOM 89 mg/dL (74-106); POTASSIUM 4.5 mmol/L (3.5-5.1); SGOT/AST 18 U/L (15-37); SGPT/ALT 44 U/L (12-78); SODIUM 136 mmol/L (136-145); TOT PROT 7.5 g/dl (6.4-8.2)
[2017-05-05] MEDS ORDERED: AZITHROMYCIN 500 MG TABLET PO ONE (12:31)
== END 2017-05-05 13:17 | disposition home or self-care (01) ==
LOC: JERFT 10:15 → JER 10:15
DX: J06.9 Acute upper respiratory infection, unspecified (principal); I25.10 Atherosclerotic heart disease of native coronary artery without angina pectoris; I10 Essential (primary) hypertension; F17.210 Nicotine dependence, cigarettes, uncomplicated; I25.2 Old myocardial infarction
CPT/HCPCS: 36415; 71046-TC; 80053; 85025; 99282-25

== ENCOUNTER 2017-05-26 10:51 | Observation (INO) | payer OTHER ==
[2017-05-26 11:00] VITALS: BMI 30.2
--- NOTE | 2017-05-26 11:13 | PDOC ---
History of Present Illness - General History Source: Patient Exam Limitations: No Limitations - History of Present Illness Initial Comments: 05/26/17 11:45 The patient is a 46 year old male, with a significant PMH of HTN, hyperlipidemia , CAD, past OK (2009), past MRSA (2010) and right nephrectomy who presents to the emergency department with chest pain beginning approximately last night. The patient describes his chest pain as a pressure sensation localized midsternally with radiation to his back and with associated shortness of breath. He notes taking an Oxycodone at 7AM and 3 Nitros (7AM, 8AM, 10AM) to some relief. The patient notes his chest pain feels similar to when he had his OK in 2009. The patients family history is significant for heart failure ( brother at age of 26). The patient denies headache and dizziness. Denies fever, chills, nausea, vomit, diarrhea and constipation. Denies dysuria, frequency, urgency and hematuria. Allergies: Penicillins Past surgical history: Right nephrectomy. Spinal surgery x10. Splenectomy. Cardiac catheterization. Social history: Former heavy cigarette use. Occasional alcohol use. No reported drug use. PCP: Dr. Yvon Meeks Event Executive: Dr. Brice <Andrade Pierce - Last Filed: 05/26/17 13:31> <Sigrid Johnson - Last Filed: 05/26/17 17:33> - General Chief Complaint: Chest Pain Stated Complaint: CHEST PAIN Time Seen by Provider: 05/26/17 11:13 Past History <Andrade Pierce - Last Filed: 05/26/17 13:31> - Past Medical History Cancer: No Cardiac Disorders: Yes (OK 2008; s/p cath) COPD: No HTN: Yes Hypercholesterolemia: Yes Lung CA: No - Surgical History Abdominal Surgery: (SPLENECTOMY; RIGHT KIDNEY REMOVED) Appendectomy: Yes Cardiac Surgery: Yes (cardiac cath no stents) Orthopedic Surgery: Yes (spinal sx x10) - Immunization History Immunization Up to Date: Yes - Suicide/Smoking/Psychosocial Hx Smoking Status: Yes Smoking History: Current some day smoker Years of Tobacco Use: 15 Have you smoked in the past 12 months: No Number of Cigarettes Smoked Daily: 1 If you are a former smoker, when did you quit?: 2 MO Cigars Per Day: 0 Information on smoking cessation initiated: No 'Breaking Loose' booklet given: 10/07/17 Hx Alcohol Use: No Drug/Substance Use Hx: No Substance Use Type: None Hx Substance Use Treatment: No <Sigrid Johnson - Last Filed: 05/26/17 17:33> - Past Medical History Allergies/Adverse Reactions: Allergies Allergy/AdvReac Type Severity Reaction Status Date / Time Penicillins Allergy Verified 05/26/17 11:00 Home Medications: Ambulatory Orders Oxycodone HCl 1 - 2 tab PO Q6H PRN 01/14/16 Aspirin [ASA -] 81 mg PO DAILY 02/08/16 Lisinopril [Zestril] 20 mg PO DAILY 02/08/16 Amlodipine Besylate [Norvasc -] 5 mg PO DAILY 05/01/16 Isosorbide Mononitrate [Imdur -] 30 mg PO DAILY 05/01/16 Nitroglycerin Sublingual [Nitrostat -] 0.4 mg SL PRN PRN 02/03/17 Fentanyl 1 each TD Q3D 05/26/17 Metaxalone [Skelaxin] 800 mg PO BID 05/26/17 Metoprolol Tartrate 25 mg PO DAILY 05/26/17 Review of Systems - Review of Systems Able to Perform ROS?: Yes Comments:: 05/26/17 11:45 Constitutional - Pt denies Fever, Chills, weakness, HEENT: denies vision changes, sore throat Respiratory: Denies cough, hemoptysis Cardiac: (+) Chest pressure with associated shortness of breath, radiation to back. No palpitations, lightheadedness, leg swelling Abd/GI: denies abd pain, nausea, vomiting, blood per rectum, melena, diarrhea : denies dysuria, frequency, discharge Musculoskeletal - denies joint swelling Skin - denies bruising, erythema, rash Neurological: denies headache, numbness, focal weakness, tingling, ataxia, weakness Hematologic: denies anemia, easy bruising, easy bleeding <Andrade Pierce - Last Filed: 05/26/17 13:31> *Physical Exam - Vital Signs Last Vital Signs Temp Pulse Resp BP Pulse Ox 98.2 F 85 18 138/70 99 05/26/17 10:57 05/26/17 10:57 05/26/17 10:57 05/26/17 10:57 05/26/17 10:57 - Physical Exam Comments: 05/26/17 11:45 GENERAL: The patient is awake, alert, and fully oriented, Nontoxic - in no acute distress. HEAD: Normocephalic, atraumatic. EYES: extraocular movements intact, sclera anicteric, conjunctiva clear. ENT: Normal voice, moist mucous membranes. NECK: Normal range of motion, supple without lymphadenopathy, JVD, or masses. LUNGS: Breath sounds equal, clear to auscultation bilaterally. No wheezes, no crackles, no rales. HEART: Regular rate and rhythm, normal S1 and S2 without murmur, rub or gallop. ABDOMEN: Soft, nontender, normoactive bowel sounds. No guarding, no rebound. No masses. EXTREMITIES: Normal range of motion, no edema. No clubbing or cyanosis. No cords , erythema, or tenderness. NEUROLOGICAL: Fully Oriented, Alert, Normal Mood/Affect, Motor Strength 5/5. No facial asymmetry, Normal speech SKIN: Healed 3 in. scar along upper thoracic region. Healed 6 inch scar along lower thoracic and lumbar region. Warm, Dry, normal turgor, no rashes or lesions noted. <Andrade Pierce - Last Filed: 05/26/17 13:31> - Vital Signs Last Vital Signs Temp Pulse Resp BP Pulse Ox 98.2 F 85 18 138/70 99 05/26/17 10:57 05/26/17 10:57 05/26/17 10:57 05/26/17 10:57 05/26/17 10:57 <Sigrid Johnson - Last Filed: 05/26/17 17:33> Heart Score/ECG Review #1 05/26/17 11:49 Vent rate 77 bpm Normal sinus rhythm Normal ECG <Andrade Pierce - Last Filed: 05/26/17 13:31> ED Treatment Course - LABORATORY CBC & Chemistry Diagram: 05/26/17 11:45 05/26/17 11:45 - Additional Consults Time Called: 12:15 Consult/PCP: Spoke with Dr. Tyler (Cardiology) who was covering for Dr. Brice <Andrade Pierce - Last Filed: 05/26/17 13:31> - LABORATORY CBC & Chemistry Diagram: 05/26/17 11:45 05/26/17 11:45 <Sigrid Johnson - Last Filed: 05/26/17 17:33> Medical Decision Making - Medical Decision Making 05/26/17 11:54 I, Dr. Sigrid Johnson, attest that the scribes documentation that appears above has been prepared under my direction and personally reviewed by me. I confirmed that the note above accurately reflects all work, treatment, procedures, and medical decision-making performed by me. Pt c/o chest pressure started last night but he thought it would just go away, he took ntg 9pm and then another at 12midnight and he went to sleep. He awakened this morning still had the pain so he took a ntg at 7am, no relief, another at 8am and a thhird one at 10 am and came in for evaluation. P says this presure is more uncomfortable then when he had the OK. PT cano quantify the pain with a number just says it is a heavy pressure. Pt tok 30mg of oxycodone at 8am. Pt is on oxycodone 30mg every 8hrs and fentanyl patch for chronic pain. Pt is awake and alert , non toxic appearing does not look in distress despite his complaint of elephant like pressure in his chest. Pt ordered asa, blood pressure checked in bot arms similar, cbc,cmp, trop, inr, cxr , ekg and will discuss case with pt's glazier stained glass Dr. Irizarry. 05/26/17 17:28 Pt with two sets of cardiac enzymes negative, ct no dissection or pulm embolism noted, pt eremained in stable condition entire time in ed. PT continues ti say he haschest pressure and to feel something is not ok, pt requested his regular pain meds oxycodone 30mg every 4 hrs and was even given his fentanyl patch while in ed, pt says this is not helping hischest pressure, case was discussed with Dr. Tyler via phone,earlier who felt if two sets of enzymes were negativem pt could be discharged home esperciallyif ct was normal but was in agreement with admission if patient continued to c/o chest pressure. Orestes admit to tele observation for seria troponin and official cardiology evaluation. Report was given to Hospitalist Dr. aHskins pt agrees to admission. <Sigrid Johnson - Last Filed: 05/26/17 17:33> *DC/Admit/Observation/Transfer - Attestations Scribe Attestion: 05/26/17 11:45 Documentation prepared by Andrade Pierce, acting as medical office specialist for Sigrid Johnson MD. <Andrade Pierce - Last Filed: 05/26/17 13:31> - Discharge Dispostion Admit: Yes <Sigrid Johnson - Last Filed: 05/26/17 17:33> Diagnosis at time of Disposition: Chest pain in adult, Chest pain, Chronic pain syndrome - Discharge Dispostion Condition at time of disposition: Stable
[2017-05-26] MEDS ORDERED: ASPIRIN 325 MG ENTERIC COATED TABLET (FP) PO ONE (11:27)
[2017-05-26] MEDS ORDERED: ASPIRIN 325 MG TABLET ONE (11:35)
[2017-05-26] MEDS ORDERED: oxyCODONE HCL 5 MG TABLET PO ONE ×2 (11:51→16:17)
[2017-05-26] MEDS ORDERED: oxyCODONE HCL 5 MG TABLET ONE ×2 (11:53→16:09)
[2017-05-26 11:58] LABS: BASO % 0.7 % (0-2.0); EOS % 0.9 % (0-4.5); HEMATOCRIT 45.2 % (35.4-49); HEMOGLOBIN 15.2 GM/dL (11.7-16.9); LYMPH % 12.2 % (8-40); MCH 29.2 pg (25.7-33.7); MCHC 33.6 g/dl (32.0-35.9); MEAN PLT VOLUME 10.5 fl (7.5-11.1); MONO % 6.6 % (3.8-10.2); NEUT % 79.6 % (42.8-82.8); PLATELET COUNT 145 K/MM3 (134-434); RBC 5.19 M/mm3 (4.00-5.60); RDW 13.3 % (11.9-15.9); WHITE BLOOD COUNT 7.7 K/mm3 (4.0-10.0)
--- NOTE | 2017-05-26 12:03 | EKG ---
Test Reason : Blood Pressure : / mmHG Vent. Rate : 077 BPM Atrial Rate : 077 BPM P-R Int : 162 ms QRS Dur : 112 ms QT Int : 414 ms P-R-T Axes : 016 005 023 degrees QTc Int : 468 ms NORMAL SINUS RHYTHM NORMAL ECG WHEN COMPARED WITH ECG OF 03-FEB-2017 12:51, NO SIGNIFICANT CHANGE WAS FOUND Confirmed by MD HENNA, ALBERTINA ([id number]) on 05/26/2017 12:02:39 PM Referred By: Confirmed By:ALBERTINA AGUILLON MD
[2017-05-26 12:12] LABS: INR 1.11 (0.82-1.09); PROTHROMBIN TIME (PATIENT) 12.5 SEC (9.98-11.88)
[2017-05-26 12:15] LABS: ALK PHOS 79 U/L (45-117); ANION GAP 7 (8-16); BILIRUBIN,TOTAL 0.7 mg/dL (0.2-1.0); BLOOD UREA NITROGEN 10 mg/dL (7-18); CALCIUM 8.6 mg/dL (8.5-10.1); CHLORIDE 105 mmol/L (98-107); CO2 26 mmol/L (21-32); CREATININE 0.8 mg/dL (0.7-1.3); GLUCOSE,RANDOM 110 mg/dL (74-106); POTASSIUM 4.2 mmol/L (3.5-5.1); SGOT/AST 19 U/L (15-37); SGPT/ALT 33 U/L (12-78); SODIUM 138 mmol/L (136-145); TOT PROT 7.1 g/dl (6.4-8.2)
[2017-05-26 12:36] LABS: AMYLASE 45 U/L (25-115)
[2017-05-26] MEDS ORDERED: FENTANYL PATCH WASTE MC PRN (13:25)
[2017-05-26] MEDS ORDERED: fentaNYL 75mcg/hr PATCH.TD72 TD SCH (13:30)
[2017-05-26] MEDS ORDERED: fentaNYL 75mcg/hr PATCH.TD72 ONE (13:33)
[2017-05-26] MEDS ORDERED: oxyCODONE HCL 5 MG TABLET PO PRN (16:30)
--- NOTE | 2017-05-26 17:59 | HP ---
CHIEF COMPLAINT: Chest pain PCP: Dr. Yvon Meeks HISTORY OF PRESENT ILLNESS: This is a 46 year old male with PMHx of HTN, hyperlipidemia, CAD s/p RI (2009), spinal surgery x9, right nephrectomy who presented to the ED with chest pain that began last night and has worsened. The patient states his chest pain is midsternal and radiates to his spine. He states "it feels like an elephant is sitting on my chest". He also reports shortness of breath. He reports some pain relief with Oxycodone at 7am and Nitro at 7am, 8am, and 10am this morning. He reports his chest pain is worse than when he had an RI in 2009. The patient denies palpitations, headache, dizziness, numbness or tingling in extremities, lower extremity swelling. ER course was notable for: (1) Trop x2 negative (2) CT chest/abd/pelvis: No evidence of thoracic or abdominal aortic aneurysm or dissection (3) Temp 98.2, pulse 85, BP 138/70, resp 18, O2 99% on RA Recent Travel: denies PAST MEDICAL HISTORY: as above PAST SURGICAL HISTORY: as above Social History: Smoking: denies Alcohol: last alcoholic drink 6 months ago Drugs: denies Family History: Allergies Penicillins Allergy (Verified 05/26/17 11:00) HOME MEDICATIONS: Home Medications Medication Instructions Recorded Oxycodone HCl 1 - 2 tab PO Q6H PRN 01/14/16 Aspirin [ASA -] 81 mg PO DAILY 02/08/16 Lisinopril [Zestril] 20 mg PO DAILY 02/08/16 Amlodipine Besylate [Norvasc -] 5 mg PO DAILY 05/01/16 Isosorbide Mononitrate [Imdur -] 30 mg PO DAILY 05/01/16 Nitroglycerin Sublingual 0.4 mg SL PRN PRN 02/03/17 [Nitrostat -] Fentanyl 1 each TD Q3D 05/26/17 Metaxalone [Skelaxin] 800 mg PO BID 05/26/17 Metoprolol Tartrate 25 mg PO DAILY 05/26/17 REVIEW OF SYSTEMS CONSTITUTIONAL: Absent: fever, chills, diaphoresis, generalized weakness, malaise, loss of appetite, weight change HEENT: Absent: rhinorrhea, nasal congestion, throat pain, throat swelling, difficulty swallowing, mouth swelling, ear pain, eye pain, visual changes CARDIOVASCULAR: Chest pain since last night as above. Absent: syncope, palpitations, irregular heart rate, lightheadedness, peripheral edema RESPIRATORY: Absent: cough, shortness of breath, dyspnea with exertion, orthopnea, wheezing, stridor, hemoptysis GASTROINTESTINAL:Absent: abdominal pain, abdominal distension, nausea, vomiting , diarrhea, constipation, melena, hematochezia GENITOURINARY: Absent: dysuria, frequency, urgency, hesitancy, hematuria, flank pain, genital pain MUSCULOSKELETAL: Absent: myalgia, arthralgia, joint swelling, back pain, neck pain SKIN: Absent: rash, itching, pallor HEMATOLOGIC/IMMUNOLOGIC: Absent: easy bleeding, easy bruising, lymphadenopathy, frequent infections ENDOCRINE:Absent: unexplained weight gain, unexplained weight loss, heat intolerance, cold intolerance NEUROLOGIC: Absent: headache, focal weakness or paresthesias, dizziness, unsteady gait, seizure, mental status changes, bladder or bowel incontinence PSYCHIATRIC: Absent: anxiety, depression, suicidal or homicidal ideation, hallucinations. PHYSICAL EXAMINATION Vital Signs - 24 hr 05/26/17 05/26/17 05/26/17 10:57 12:01 15:53 Temperature 98.2 F Pulse Rate 85 Pulse Rate [ 78 65 Apical] Respiratory 18 18 18 Rate Blood Pressure 138/70 Blood Pressure 126/82 113/70 [Left Arm] Blood Pressure 118/83 [Right Arm] O2 Sat by Pulse 99 100 98 Oximetry (%) GENERAL: Awake, alert, and fully oriented, in no acute distress. HEAD: Normal with no signs of trauma. EYES: Pupils equal, round and reactive to light, extraocular movements intact, sclera anicteric, conjunctiva clear. No lid lag. EARS, NOSE, THROAT: Ears normal, nares patent, oropharynx clear without exudates. Moist mucous membranes. NECK: Normal range of motion LUNGS: Breath sounds equal, clear to auscultation bilaterally HEART: Regular rate and rhythm, normal S1 and S2 ABDOMEN: Soft, nontender, not distended, normoactive bowel sounds, no guarding, no rebound, no masses MUSCULOSKELETAL: Normal range of motion at all joints. No bony deformities or tenderness. No CVA tenderness. UPPER EXTREMITIES: 2+ pulses, warm, well-perfused. No cyanosis. No clubbing. No peripheral edema. LOWER EXTREMITIES: 2+ pulses, warm, well-perfused. No calf tenderness. No peripheral edema. NEUROLOGICAL: Cranial nerves II-XII intact. Normal speech. Gait not observed PSYCHIATRIC: Cooperative. Good eye contact. Appropriate mood and affect. SKIN: Warm, dry, normal turgor, no rashes or lesions noted, normal capillary refill. Laboratory Results - last 24 hr 05/26/17 05/26/17 05/26/17 11:45 11:45 11:45 WBC 7.7 RBC 5.19 Hgb 15.2 Hct 45.2 MCV 87.0 MCH 29.2 MCHC 33.6 RDW 13.3 Plt Count 145 MPV 10.5 Neutrophils % 79.6 Lymphocytes % 12.2 Monocytes % 6.6 Eosinophils % 0.9 Basophils % 0.7 PT with INR 12.50 H INR 1.11 Sodium 138 Potassium 4.2 Chloride 105 Carbon Dioxide 26 Anion Gap 7 L BUN 10 D Creatinine 0.8 Creat Clearance w eGFR > 60 Random Glucose 110 H D Calcium 8.6 Total Bilirubin 0.7 AST 19 ALT 33 D Alkaline Phosphatase 79 Creatine Kinase Troponin I Total Protein 7.1 Albumin 4.0 Total Amylase 05/26/17 05/26/17 11:45 15:25 WBC RBC Hgb Hct MCV MCH MCHC RDW Plt Count MPV Neutrophils % Lymphocytes % Monocytes % Eosinophils % Basophils % PT with INR INR Sodium Potassium Chloride Carbon Dioxide Anion Gap BUN Creatinine Creat Clearance w eGFR Random Glucose Calcium Total Bilirubin AST ALT Alkaline Phosphatase Creatine Kinase 68 65 Troponin I < 0.02 < 0.02 Total Protein Albumin Total Amylase 45 Assessment: This is a 46 year old male with PMHx of HTN, hyperlipidemia, CAD s/ p RI (2009), spinal surgery x9, right nephrectomy who presented to the ED with chest pain that began last night and has worsened. Plan: 1) Chest pain - Trop x2 negative - Chest/abd/pelvis CTA negative for dissection/aneurysm or acute pathology - EKG with NSR - F/u cardiology consult 2) CAD s/p RI - Continue ASA - Continue Imdur 3) HTN - Lopressor - Continue Lisinopril - Continue Norvasc 4) Visit type - Emergency Visit Emergency Visit: Yes ED Registration Date: 05/26/17 Care time: The patient presented to the Emergency Department on the above date and was hospitalized for further evaluation of their emergent condition. - New Patient This patient is new to me today: Yes Date on this admission: 05/27/17 - Critical Care Critical Care patient: No
[2017-05-26] MEDS: oxyCODONE HCL 5 MG TABLET PO PRN (21:12)
[2017-05-26] MEDS ORDERED: PATIENT'S OWN MEDICATION (NON-FORMULARY) (Metaxalone [Skelaxin] 800 MG) PO SCH (22:00)
[2017-05-26] MEDS: NITROGLYCERIN SUBLINGUAL 1/150 0.4 MG TAB SL PRN (22:29)
[2017-05-27] MEDS: oxyCODONE HCL 5 MG TABLET PO PRN ×3 (02:32→20:08)
[2017-05-27] MEDS: NITROGLYCERIN SUBLINGUAL 1/150 0.4 MG TAB SL PRN ×3 (04:01→07:32)
--- NOTE | 2017-05-27 10:03 | CON.CARD ---
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 (although no records of this available), reported "CO" 2009 cardiac cath done at [facility] showing no obstructive coronary disease, no intervention performed, possible chronic small vessel CAD, admission 2015 with chest pain, cardiac cath 01/2016 at [facility] showed again no obstructive CAD, echo showed normal biventricular function, no pericardial effusion, normal aortic root size, again admitted 01/2017 with chest pain, nuclear stress showed small apical ischemia, plan was for medical management, pt was planned to start Ranexa as outpatient but insurance didnt cover it thus he never started, also considered for PET scan as outpatient to evaluate for small vessel disease but insurance didnt cover it, h/o chronic atypical chest pain, palpitations, flushing sensation of face, planned for pheochromocytoma work up as outpatient now again admitted with chest pain. Pt. seen and examined today in [facility]. Pt states that he still currently has the chest pain. states the pain is constant, substernal radiating to the back, improved after taking 5 SL NTG. Also again notes the fullness/flushing sensation in his neck and face that occurs when his blood pressure goes up. denies any palpitations. no sob. no pnd, orthopnea, or LE edema. no syncope or near syncope. - History Source History Provided By: Patient, Medical Record Limitations to Obtaining History: No Limitations - Past Medical History Cardio/Vascular: Yes: CAD, HTN, Hyperlipdemia, CO Musculoskeletal: Yes: Chronic low back pain, Other (multiple previous back surgeries, chronic back pain) - Alcohol/Substance Use Hx Alcohol Use: No - Smoking History Smoking history: Current some day smoker Have you smoked in the past 12 months: No Aproximately how many cigarettes per day: 1 If you are a former smoker, when did you quit?: 2 MO - Social History ADL: Independent History of Recent Travel: No Home Medications - Allergies Allergies/Adverse Reactions: Allergies Allergy/AdvReac Type Severity Reaction Status Date / Time Penicillins Allergy Verified 05/26/17 11:00 - Home Medications Home Medications: Ambulatory Orders Oxycodone HCl 1 - 2 tab PO Q6H PRN 01/14/16 Aspirin [ASA -] 81 mg PO DAILY 02/08/16 Lisinopril [Zestril] 20 mg PO DAILY 02/08/16 Amlodipine Besylate [Norvasc -] 5 mg PO DAILY 05/01/16 Isosorbide Mononitrate [Imdur -] 30 mg PO DAILY 05/01/16 Nitroglycerin Sublingual [Nitrostat -] 0.4 mg SL PRN PRN 02/03/17 Fentanyl 1 each TD Q3D 05/26/17 Metaxalone [Skelaxin] 800 mg PO BID 05/26/17 Metoprolol Tartrate 25 mg PO DAILY 05/26/17 Family Disease History - Family Disease History Family Disease History: Heart Disease: Father, Mother, Brother Review of Systems - Review of Systems Constitutional: denies: No Symptoms, Chills, Diaphoresis, Fever, Lethargy, Loss of Appetite, Malaise, Night Sweats, Unintentional Wgt. Loss, Weakness, Other Eyes: denies: No Symptoms, Blind Spots, Blurred Vision, Double Vision, Eye Pain , Floaters, Photophobia, Recent Change in Vision, Other HENT: denies: No Symptoms, Difficult Swallowing, Ear Discharge, Ear Pain, Epistaxis, Gingival Bleeding, Hearing Loss, Mouth Swelling, Nasal Congestion, Ocular Prosthesis, Throat Pain, Toothache, Ringing in Ears, Other Neck: denies: No Symptoms, Decreased ROM, Lumps, Pain on Movement, Stiffness, Swollen Glands, Tenderness, Other Cardiovascular: reports: Chest Pain. denies: No Symptoms, Edema, Palpitations, Shortness of Breath, Other Respiratory: denies: No Symptoms, Cough, Exercise Intolerance, Hemoptysis, Orthopnea, PND, Snoring, SOB, SOB on Exertion, Wheezing, Other Gastrointestinal: denies: No Symptoms, Abdominal Pain, Bloating, Constipation, Diarrhea, Dysphagia, Indigestion, Melena, Nausea, Rectal Bleeding, Vomiting, Vomiting Blood, Other Genitourinary: denies: No Symptoms, Burning, Discharge, Dysuria, Flank Pain, Frequency, Hematuria, Incontinence, Lesions, Menses, Pain, Testicular Mass, Testicular Pain, Testicular Swelling, Urgency, Vaginal Bleeding, Other Breasts: denies: No Symptoms Reported, See HPI, Breast Implants, Discharge from Nipple, Lumps, Pain, Skin Changes, Other Musculoskeletal: reports: Back Pain. denies: No Symptoms, Crepitus, Decreased ROM, Extremity Pain, Joint Pain, Joint Swelling, Muscle Pain, Muscle Cramps, Muscle Weakness, Other Integumentary: denies: No Symptoms, Blister, Bruising, Change in Color, Eczema, Erythema, Incision, Lesions, Lump, Pallor, Pruritis, Rash, Wound, Other Neurological: denies: No Symptoms, Change in LOC, Change in Speech, Confusion, Dizziness, Headache, Incoordination, Numbness, Parasthesia, Pre-Existing Deficit , Seizure, Syncope, Tremors, Unsteady Gait, Weakness, Other Endocrine: denies: No Symptoms, Excessive Sweating, Flushing, Increased Hunger, Increased Thirst, Intolerance to Cold, Intolerance to Heat, Unexplained Weight Gain, Unexplained Weight Loss, Other Hematology/Lymphatic: denies: No Symptoms, Easily Bruised, Excessive Bleeding, Swollen Glands, Other Psychiatric: denies: No Symptoms, Altered Sleep Pattern, Anxiety, Depression, Hallucinations, Panic, Paranoia, Suicidal, Other - Risk Factors Known Risk Factors: Yes: Hypercholesterolemia, Hypertension, Prior CO /Emb Stroke Vital Signs: Vital Signs Temperature 97.7 F 05/27/17 06:00 Pulse Rate 62 05/27/17 06:00 Respiratory Rate 18 05/27/17 06:00 Blood Pressure 113/65 05/27/17 06:00 O2 Sat by Pulse Oximetry (%) 97 05/26/17 20:35 Constitutional: Yes: Well Nourished, No Distress, Calm Eyes: Yes: WNL, Conjunctiva Clear, EOM Intact, PERRL HENT: Yes: WNL, Atraumatic, Normocephalic Neck: Yes: WNL, Supple, Trachea Midline Respiratory: Yes: WNL, Regular, CTA Bilaterally. No: Rales, Rhonchi, Wheezes Gastrointestinal: Yes: WNL, Normal Bowel Sounds, Soft. No: Distention, Tenderness Renal/: Yes: WNL Cardiovascular: Yes: Regular Rate and Rhythm. No: Bradycardia, Tachycardia, Pulse Irregular, Gallop, Rub, Varicosities JVD: No Carotid Bruit: No PMI: Non-Displaced Heart Sounds: Yes: S1, S2. No: Split S2, S3, S4, Clicks, Gallop, Rub, Bruit Murmur: No: Systolic Murmur, Diastolic Murmur Musculoskeletal: Yes: Back Pain Extremities: Yes: WNL Edema: No Peripheral Pulses WNL: Yes Peripheral Pulses: 2+ Left Doralis Pedis, 2+ Right Dorsalis Pedis Integumentary: Yes: WNL Neurological: Yes: Alert, Oriented Psychiatric: Yes: Alert, Oriented - Other Data Labs, Other Data: CBC, BMP 05/26/17 11:45 05/26/17 11:45 INR, PTT INR 1.11 (0.82-1.09) 05/26/17 11:45 Troponin, BNP 05/26/17 05/26/17 05/26/17 11:45 15:25 21:35 Troponin I < 0.02 < 0.02 < 0.02 Troponin, BNP 05/26/17 05/26/17 05/26/17 11:45 15:25 21:35 Troponin I < 0.02 < 0.02 < 0.02 EKG-NSR 72bpm, no sig ST abnl Echo: Report Reviewed Prior Cardiac Procedures: Cardiac Catheterization Ejection Fraction %: LVEF > or = 40 % Imaging - Results Chest X-ray: Report Reviewed, Image Reviewed EKG: Report Reviewed, Image Reviewed Other: Report Reviewed, Image Reviewed (tele-nsr, no arrhythmias recorded) Assessment/Plan 46 year old man with a history of HTN, chronic back pain with multiple spine surgeries with reported complication of MRSA bacteremia and 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 (although no records of this available), reported "CO" 2009 cardiac cath done at [facility] showing no obstructive coronary disease, no intervention performed, possible chronic small vessel CAD, admission 2015 with chest pain, cardiac cath 01/2016 at [facility] showed again no obstructive CAD, echo showed normal biventricular function, no pericardial effusion, normal aortic root size, again admitted 01/2017 with chest pain, nuclear stress showed small apical ischemia, plan was for medical management, pt was planned to start Ranexa as outpatient but insurance didnt cover it thus he never started, also considered for PET scan as outpatient to evaluate for small vessel disease but insurance didnt cover it, h/o chronic atypical chest pain, palpitations, flushing sensation of face, planned for pheochromocytoma work up as outpatient now again admitted with chest pain. Pt. seen and examined today in [facility]. Pt states that he still currently has the chest pain. states the pain is constant, substernal radiating to the back, improved after taking 5 SL NTG. Also again notes the fullness/flushing sensation in his neck and face that occurs when his blood pressure goes up. denies any palpitations. no sob. no pnd, orthopnea, or LE edema. no syncope or near syncope. Chest pain-atypical, unlikely ACS -cardiac enzymes wnl x 4 -no ischemia on ekg -no arrhythmias on telemetry -plan for continued medical therapy for presumed small vessel CAD -last cardiac cath 01/2016 showed no sig CAD, possible small vessell CAD -last echo 02/13 showed low normal LVEF otherwise no sig structural heart disease -nuclear stress 01/2017 showed small mild apical ischemia that was managed medically -CTA chest/abd showed no evidence of aortic aneurysm or dissection -cont ASA, bblocker, imdur -start Ranexa and will plan to give samples as outpatient until the Rx can be worked out with his insurance -pt is acceptable from a cardiac standpoint for discharge with a plan for close outpatient f/up in office HTN-adequately controlled -cont current medical regimen Episodic palpitations associated with flushing, headache, HTN -plan for outpatient endocrine evaluation for pheochromocytoma work up if not already done
[2017-05-27] MEDS: ISOSORBIDE MONONITRATE 30 MG TAB.SR.24H (FP) PO SCH (10:12)
[2017-05-27] MEDS: ASPIRIN 81 MG CHEWABLE TABLETS PO SCH (10:12)
[2017-05-27] MEDS: RANOLAZINE E.R. 500 MG TABLET (FP) PO SCH ×2 (10:12→21:56)
[2017-05-27] MEDS: LISINOPRIL 20 MG TABLET (FP) PO SCH (10:12)
[2017-05-27] MEDS: amLODIPine BESYLATE 5 MG TABLET (FP) PO SCH (10:12)
[2017-05-27] MEDS: METOPROLOL TARTRATE 25 MG TABLET (FP) PO SCH (10:12)
--- NOTE | 2017-05-27 11:52 | DS ---
Physical Examination Vital Signs: Vital Signs Temperature 98.7 F 05/27/17 10:00 Pulse Rate 68 05/27/17 10:00 Respiratory Rate 18 05/27/17 10:00 Blood Pressure 108/72 05/27/17 10:00 O2 Sat by Pulse Oximetry (%) 98 05/27/17 10:00 Findings/Remarks: This is a 46 year old male with PMHx of HTN, hyperlipidemia, CAD s/p MN (2009), spinal surgery x9, right nephrectomy who presented to the ED with chest pain that began last night and has worsened. The patient states his chest pain is midsternal and radiates to his spine. He states "it feels like an elephant is sitting on my chest". He also reports shortness of breath. He reports some pain relief with Oxycodone at 7am and Nitro at 7am, 8am, and 10am this morning. He reports his chest pain is worse than when he had an MN in 2009. The patient denies palpitations, headache, dizziness, numbness or tingling in extremities, lower extremity swelling. ER course was notable for: (1) Trop x2 negative (2) CT chest/abd/pelvis: No evidence of thoracic or abdominal aortic aneurysm or dissection (3) Temp 98.2, pulse 85, BP 138/70, resp 18, O2 99% on RA Plan: 1) Chest pain - Trop x3 negative - Chest/abd/pelvis CTA negative for dissection/aneurysm or acute pathology - EKG with NSR - Add Ranexa, cardiology informed patient to hot die picker samples from the office as outpatient until Rx can be worked out with francis - Appreciate cardiology consult 2) CAD s/p MN - Continue ASA - Continue Imdur 3) HTN - Lopressor - Continue Lisinopril - Continue Norvasc Discussed at length with the patient. Cardiology cleared for discharged today. No further cardiac testing at this time. Please follow-up with your primary care provider for further evaluation for pheochromocytoma. Labs: CBC, BMP 05/26/17 11:45 05/26/17 11:45 Discharge Summary Reason For Visit: CHEST PAIN IN ADULT, CP Current Active Problems Chest pain (Acute) Chest pain in adult (Acute) Chronic pain syndrome (Acute) Condition: Improved - Instructions Diet, Activity, Other Instructions: Please return to the ED with new, persistent, or worsening symptoms. Please follow-up with providers as indicated. Referrals: Kunal Brice MD [Staff Physician] - (Please follow-up with Dr. Brice within 2-3 days for further management of your chest pain) Yvon Meeks MD [Primary Care Provider] - 1 Week (Please follow-up with your pcp within 1 week for outpatient pheochromocytoma workup) Disposition: HOME - Home Medications Comprehensive Discharge Medication List: Ambulatory Orders Oxycodone HCl 1 - 2 tab PO Q6H PRN 01/14/16 Aspirin [ASA -] 81 mg PO DAILY 02/08/16 Lisinopril [Zestril] 20 mg PO DAILY 02/08/16 Amlodipine Besylate [Norvasc -] 5 mg PO DAILY 05/01/16 Isosorbide Mononitrate [Imdur -] 30 mg PO DAILY 05/01/16 Nitroglycerin Sublingual [Nitrostat -] 0.4 mg SL PRN PRN 02/03/17 Fentanyl 1 each TD Q3D 05/26/17 Metaxalone [Skelaxin] 800 mg PO BID 05/26/17 Metoprolol Tartrate 25 mg PO DAILY 05/26/17 FENTANYL 75mcg PATCH [DURAGESIC 75mcg PATCH -] 1 patch TD Q72H patch.td72 MDD 75mcg 05/27/17 Ranolazine [Ranexa -] 500 mg PO BID #60 tab 05/27/17 This patient is new to me today: Yes Date on this admission: 05/27/17 Emergency Visit: No Critical Care patient: No - Discharge Referral Referred to [facility] No
[2017-05-27] MEDS ORDERED: oxyCODONE HCL 5 MG TABLET PO PRN ×2 (12:30→14:30)
[2017-05-27] MEDS ORDERED: oxyCODONE HCL 5 MG TABLET PO ONE (12:30)
[2017-05-28] MEDS: oxyCODONE HCL 5 MG TABLET PO PRN ×2 (00:13→04:30)
[2017-05-28] MEDS ORDERED: oxyCODONE HCL 5 MG TABLET PO PRN (06:56)
[2017-05-28] MEDS ORDERED: oxyCODONE HCL 5 MG TABLET PO ONE (08:30)
[2017-05-28] MEDS: RANOLAZINE E.R. 500 MG TABLET (FP) PO SCH (08:49)
[2017-05-28] MEDS: ISOSORBIDE MONONITRATE 30 MG TAB.SR.24H (FP) PO SCH (08:50)
[2017-05-28] MEDS: amLODIPine BESYLATE 5 MG TABLET (FP) PO SCH (08:50)
[2017-05-28] MEDS: LISINOPRIL 20 MG TABLET (FP) PO SCH (08:50)
[2017-05-28] MEDS: METOPROLOL TARTRATE 25 MG TABLET (FP) PO SCH (08:50)
[2017-05-28] MEDS: ASPIRIN 81 MG CHEWABLE TABLETS PO SCH (08:51)
[2017-05-28 09:50] VITALS: BP 138/77; PULSE 80; TEMP 98.3
== END 2017-05-28 09:26 | disposition home or self-care (01) ==
LOC: JER 10:51 → JERBED 16:27 → UNDOADMOB 16:38 → JERBED 16:38 → J4W 20:29
PROVIDERS: ADMIT Internal Medicine; ATTEND Internal Medicine
DX: R07.89 Other chest pain (principal); I10 Essential (primary) hypertension; I25.10 Atherosclerotic heart disease of native coronary artery without angina pectoris; I25.2 Old myocardial infarction; E78.5 Hyperlipidemia, unspecified; F17.210 Nicotine dependence, cigarettes, uncomplicated; M54.5 Low back pain; G89.29 Other chronic pain; Z79.82 Long term (current) use of aspirin; Z88.0 Allergy status to penicillin; Z82.49 Family history of ischemic heart disease and other diseases of the circulatory system; Z90.5 Acquired absence of kidney; Z86.14 Personal history of Methicillin resistant Staphylococcus aureus infection; Z98.61 Coronary angioplasty status; Z90.81 Acquired absence of spleen
CPT/HCPCS: 36415; 71045-TC; 71275-TC; 74174-TC; 80053; 82150; 82550; 84484; 85025; 85610; 93005; 93010; 99284-25; G0378

== ENCOUNTER 2019-03-29 13:47 | Emergency (ER) | payer OTHER ==
[2019-03-29 14:04] VITALS: BP 121/87; PULSE 79; TEMP 98.3; BMI 30.2
--- NOTE | 2019-03-29 14:04 | PDOC ---
History of Present Illness - General Chief Complaint: Cold Symptoms Stated Complaint: cold Time Seen by Provider: 03/29/19 13:50 - History of Present Illness Initial Comments: 03/29/19 14:13 Chief complaint: Cough HPI: Patient complains of cough and congestion for several days. He has been using his albuterol inhaler without relief. Review of systems: No fever/chills or shortness of breath. No chest pain. Remainder of systems negative Past medical history: Multiple medical problems and drug dependence. No serious chest disease, no prior hospitalizations or intubations for pulmonary problems Social/family history reviewed and noncontributory Physical exam: Alert oriented well-developed well-nourished no acute distress cooperative Afebrile, vital signs normal HEENT: Nasal congestion, ears and throat clear Neck supple Chest clear to PNA, but breath sounds somewhat diminished bilaterally CV regular without murmur rub or gallop Abdomen benign Skin clear, no rash, adequate turgor and wet mucous membranes Extremities no CCE Neurological intact Impression: Acute bronchitis Plan: Antibiotic and symptomatic treatment of bronchospasm. Close follow-up and recheck if symptoms worsen. Discharge fully ambulatory in no distress respiratory or otherwise. Past History - Past Medical History Allergies/Adverse Reactions: Allergies Allergy/AdvReac Type Severity Reaction Status Date / Time Penicillins Allergy Verified 08/17/17 18:20 Home Medications: Ambulatory Orders Amlodipine Besylate [Norvasc -] 5 mg PO DAILY 05/01/16 Metaxalone [Skelaxin] 800 mg PO BID 05/26/17 FENTANYL 75mcg PATCH [DURAGESIC 75mcg PATCH -] 1 patch TD Q72H patch.td72 MDD 75mcg 05/27/17 Albuterol Sulfate Inhaler - [Ventolin HFA Inhaler -] 1 - 2 inh PO Q4H #1 inhaler 12/20/18 Montelukast Sodium [Singulair] 10 mg PO DAILY #10 tablet 12/20/18 Albuterol Sulfate [Albuterol Sulfate Hfa] 1 inh IH QID PRN #1 hfa.aer.ad Azithromycin [Zithromax 250mg Tablets -] 250 mg PO UTDICT #6 tab 03/29/19 Cancer: No Cardiac Disorders: Yes ([place] 2008; s/p cath) COPD: No DVT: No HTN: Yes Hypercholesterolemia: Yes Lung CA: No - Surgical History Abdominal Surgery: (SPLENECTOMY; RIGHT KIDNEY REMOVED) Appendectomy: Yes Cardiac Surgery: Yes (cardiac cath no stents) Orthopedic Surgery: Yes (spinal sx x10) - Immunization History Immunization Up to Date: Yes - Psycho Social/Smoking Cessation Hx Smoking Status: Yes Smoking History: Current some day smoker Years of Tobacco Use: 15 Have you smoked in the past 12 months: Yes Number of Cigarettes Smoked Daily: 5 If you are a former smoker, when did you quit?: 2 MO Cigars Per Day: 0 'Breaking Loose' booklet given: 08/17/17 Hx Alcohol Use: No Drug/Substance Use Hx: No Substance Use Type: None Hx Substance Use Treatment: No Respiratory Specific PMHX - Complaint Specific PMHX Hx Pulmonary Embolus: No Discharge - Discharge Information Problems reviewed: Yes Clinical Impression/Diagnosis: Bronchitis Condition: Stable Disposition: HOME - Admission No - Additional Discharge Information Prescriptions: Albuterol Sulfate [Albuterol Sulfate Hfa] 1 inh IH QID PRN #1 hfa.aer.ad PRN Reason: Wheezing Azithromycin [Zithromax 250mg Tablets -] 250 mg PO UTDICT #6 tab - Follow up/Referral - Patient Discharge Instructions Patient Printed Discharge Instructions: DI for Acute Bronchitis - Post Discharge Activity
== END 2019-03-29 14:12 | disposition home or self-care (01) ==
LOC: FER 13:47
DX: J40 Bronchitis, not specified as acute or chronic (principal); F17.210 Nicotine dependence, cigarettes, uncomplicated; I10 Essential (primary) hypertension; E78.00 Pure hypercholesterolemia, unspecified; I25.2 Old myocardial infarction; Z88.0 Allergy status to penicillin
CPT/HCPCS: 99282-25

== ENCOUNTER 2019-04-27 17:26 | Emergency (ER) | payer OTHER ==
[2019-04-27 17:35] VITALS: BP 141/81; PULSE 80; TEMP 98.1; BMI 30.2
--- NOTE | 2019-04-27 18:29 | PDOC ---
History of Present Illness - General Chief Complaint: Sore Throat Stated Complaint: sore throat, cough, runny nose Time Seen by Provider: 04/27/19 18:23 - History of Present Illness Initial Comments: 04/29/19 07:21 Chief complaint: Cold symptoms HPI: Nasal congestion, nonproductive cough for several days. No fever/chills, chest pain, shortness of breath Review of systems: As above, otherwise negative Past medical history: High blood pressure, chronic pain on narcotics, asthma/ COPD which did not require steroids and have not resulted in hospitalizations or intubations. Social/family history reviewed and noncontributory Physical exam: Alert and oriented well-developed well-nourished no acute distress cooperative Afebrile, vital signs normal including respiratory rate and oxygen saturation. HEENT: Mild nasal congestion, no nasal discharge Neck supple without bruit mass or nodes Lungs clear to P&A with full breath sounds bilaterally. No wheezes rales or rhonchi. No tachypnea or dyspnea. CV regular without murmur rub or gallop Abdomen benign Impression: Viral URI with cough, underlying COPD Plan: Symptomatic treatment, antibiotics, close follow-up primary physician. No distress respiratory or otherwise at discharge to follow-up as directed Past History - Past Medical History Allergies/Adverse Reactions: Allergies Allergy/AdvReac Type Severity Reaction Status Date / Time Penicillins Allergy Verified 08/17/17 18:20 Home Medications: Ambulatory Orders Amlodipine Besylate [Norvasc -] 5 mg PO DAILY 05/01/16 Metaxalone [Skelaxin] 800 mg PO BID 05/26/17 FENTANYL 75mcg PATCH [DURAGESIC 75mcg PATCH -] 1 patch TD Q72H patch.td72 MDD 75mcg 05/27/17 Montelukast Sodium [Singulair] 10 mg PO DAILY #10 tablet 12/20/18 Albuterol Sulfate [Albuterol Sulfate Hfa] 1 inh IH QID PRN #1 hfa.aer.ad Albuterol Sulfate Inhaler - [Ventolin HFA Inhaler -] 1 - 2 inh PO Q4H #1 inhaler 04/27/19 Azithromycin [Zithromax 250mg Tablets -] 250 mg PO UTDICT #6 tab 04/27/19 Cancer: No Cardiac Disorders: Yes ([place] 2009; s/p cath) COPD: No DVT: No HTN: Yes Hypercholesterolemia: Yes Lung CA: No - Surgical History Abdominal Surgery: (SPLENECTOMY; RIGHT KIDNEY REMOVED) Appendectomy: Yes Cardiac Surgery: Yes (cardiac cath no stents) Orthopedic Surgery: Yes (spinal sx x10) - Immunization History Immunization Up to Date: Yes - Psycho Social/Smoking Cessation Hx Smoking Status: Yes Smoking History: Current some day smoker Years of Tobacco Use: 15 Have you smoked in the past 12 months: Yes Number of Cigarettes Smoked Daily: 5 If you are a former smoker, when did you quit?: 2 MO Cigars Per Day: 0 Information on smoking cessation initiated: Yes 'Breaking Loose' booklet given: 08/17/17 Hx Alcohol Use: No Drug/Substance Use Hx: No Substance Use Type: None Hx Substance Use Treatment: No Respiratory Specific PMHX - Complaint Specific PMHX Hx Pulmonary Embolus: No *Physical Exam - Vital Signs Last Vital Signs Temp Pulse Resp BP Pulse Ox 98.1 F 80 20 141/81 98 04/27/19 17:28 04/27/19 17:28 04/27/19 17:28 04/27/19 17:28 04/27/19 17:28 Discharge - Discharge Information Problems reviewed: Yes Clinical Impression/Diagnosis: Bronchitis Condition: Stable Disposition: HOME - Admission No - Additional Discharge Information Prescriptions: Albuterol Sulfate Inhaler - [Ventolin HFA Inhaler -] 1 - 2 inh PO Q4H #1 inhaler Azithromycin [Zithromax 250mg Tablets -] 250 mg PO UTDICT #6 tab - Follow up/Referral - Patient Discharge Instructions Patient Printed Discharge Instructions: DI for Acute Bronchitis - Post Discharge Activity
== END 2019-04-27 18:40 | disposition home or self-care (01) ==
LOC: FER 17:26
DX: J40 Bronchitis, not specified as acute or chronic (principal); Z88.0 Allergy status to penicillin; F17.210 Nicotine dependence, cigarettes, uncomplicated; I10 Essential (primary) hypertension; I25.2 Old myocardial infarction
CPT/HCPCS: 99281-25

== ENCOUNTER 2019-04-29 12:45 | Emergency (ER) | payer OTHER ==
[2019-04-29 13:13] VITALS: BP 139/70; PULSE 80; TEMP 98.3; BMI 30.2
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
[2019-04-29 16:12] LABS: COCAINE, UR NEGATIVE ng/ml (CUTOFF=300); PHENCYCLIDINE,URINE NEGATIVE ng/ml (CUTOFF=25); URINE AMPHETAMINES NEGATIVE ng/ml (CUTOFF=500); URINE BARBITURATES NEGATIVE ng/ml (CUTOFF=200)
[2019-04-29 16:13] LABS: METHADONE, UR NEGATIVE ng/ml (CUTOFF=300); URINE BENZODIAZEPINES NEGATIVE ng/ml (CUTOFF=200)
[2019-04-29 16:35] LABS: OPIATES, URI POSITIVE ng/ml (CUTOFF=300)
== END 2019-04-29 14:58 | disposition home or self-care (01) ==
LOC: FER 12:45
DX: G47.10 Hypersomnia, unspecified (principal); Z88.0 Allergy status to penicillin; I10 Essential (primary) hypertension; E78.00 Pure hypercholesterolemia, unspecified; F17.210 Nicotine dependence, cigarettes, uncomplicated; I25.2 Old myocardial infarction
CPT/HCPCS: 80307; 99282-25

== ENCOUNTER 2019-05-23 13:45 | Emergency (ER) | payer OTHER ==
--- NOTE | 2019-05-23 14:29 | PDOC ---
History of Present Illness - General Chief Complaint: Cold Symptoms Stated Complaint: COLD SYMPTOMS Time Seen by Provider: 05/23/19 14:16 - History of Present Illness Initial Comments: 05/23/19 14:29 48yo M hx lumbar surgeries 9, pain stimulator, cervical spine surgery 2, thoracic spine surgery 1, CAD s/p stents, hypertension presents with sore throat, cough, nasal congestion, and bodyaches since last night. Three children at home with the same symptoms Denies fever, chills SOB, CP, abd pain, N/V/D, constipation, urinary sxs, LE edema No treatments tried Requesting z-pack for his symptoms Past History - Past Medical History Allergies/Adverse Reactions: Allergies Allergy/AdvReac Type Severity Reaction Status Date / Time Penicillins Allergy Verified 08/17/17 18:20 Home Medications: Ambulatory Orders FENTANYL 75mcg PATCH [DURAGESIC 75mcg PATCH -] 1 patch TD Q72H patch.td72 MDD 75mcg 05/27/17 Albuterol Sulfate Inhaler - [Ventolin HFA Inhaler -] 1 - 2 inh PO Q4H #1 inhaler 04/27/19 Aspirin [Aspirin EC] 81 mg PO DAILY 04/29/19 Albuterol Sulfate Inhaler - [Ventolin HFA Inhaler -] 1 - 2 inh PO Q4H #1 inhaler 05/23/19 Azithromycin 250 mg PO DAILY #6 tablet 05/23/19 Oxycodone HCl [Oxycontin] 60 mg PO Q6H 05/23/19 Cancer: No Cardiac Disorders: Yes ([place] 2008; s/p cath) COPD: No DVT: No HTN: Yes Hypercholesterolemia: Yes Lung CA: No - Surgical History Abdominal Surgery: (SPLENECTOMY; RIGHT KIDNEY REMOVED) Appendectomy: Yes Cardiac Surgery: Yes (cardiac cath no stents) Orthopedic Surgery: Yes (spinal sx x10) - Immunization History Immunization Up to Date: Yes - Psycho Social/Smoking Cessation Hx Smoking Status: Yes Smoking History: Current some day smoker Years of Tobacco Use: 15 Have you smoked in the past 12 months: Yes Number of Cigarettes Smoked Daily: 5 If you are a former smoker, when did you quit?: 2 MO Cigars Per Day: 0 'Breaking Loose' booklet given: 08/17/17 Hx Alcohol Use: No Drug/Substance Use Hx: Yes (PRESCRIPTION) Substance Use Type: None Hx Substance Use Treatment: No Review of Systems - Review of Systems Comments:: 05/23/19 14:51 GENERAL/CONSTITUTIONAL: No fever or chills. No weakness. HEAD, EYES, EARS, NOSE AND THROAT: No change in vision. No ear pain or discharge. +sore throat. GASTROINTESTINAL: No nausea, vomiting, diarrhea or constipation. GENITOURINARY: No dysuria, frequency, or change in urination. CARDIOVASCULAR: No chest pain or shortness of breath. RESPIRATORY: +cough, no wheezing, or hemoptysis. MUSCULOSKELETAL: +bodyaches SKIN: No rash NEUROLOGIC: No headache, vertigo, loss of consciousness, or change in strength/ sensation. ENDOCRINE: No increased thirst. No abnormal weight change. HEMATOLOGIC/LYMPHATIC: No anemia, easy bleeding, or history of blood clots. ALLERGIC/IMMUNOLOGIC: No hives or skin allergy. *Physical Exam - Physical Exam 05/23/19 14:51 GENERAL: Awake, alert, and fully oriented, in no acute distress HEAD: No signs of trauma EYES: PERRLA, EOMI, sclera anicteric, conjunctiva clear ENT: Auricles normal inspection, hearing grossly normal, +clear nasal congestion , mild posterior OP erythema with no exudates. Uvula midline. Moist mucosa NECK: Normal ROM, supple, no lymphadenopathy, JVD, or masses LUNGS: Breath sounds equal, clear to auscultation bilaterally. No wheezes, and no crackles HEART: Regular rate and rhythm, normal S1 and S2, no murmurs, rubs or gallops ABDOMEN: Soft, nontender, normoactive bowel sounds. No guarding, no rebound. No masses EXTREMITIES: Normal range of motion, no edema. No clubbing or cyanosis. No cords, erythema, or tenderness NEUROLOGICAL: Normal speech, cranial nerves intact, equal strength and sensation b/l SKIN: Warm, Dry, normal turgor, no rashes or lesions noted. Medical Decision Making - Medical Decision Making 05/23/19 14:49 48yo M presents to the ED with URI sxs Declines flu swab and empiric tx for flu States he often has bronchitis annually, only gets better with albuterol and z- pack Pt well appearing, non toxic Discussed that he likely has viral syndrome, will prescribe z-pack to fill in a few days should he become febrile or is not feeling better Pt HDS, clinically stable for DC home I discussed the physical exam findings, ancillary test results and final diagnoses with the patient. I answered all of the patient's questions. The patient was satisfied with the care received and felt comfortable with the discharge plan and treatment plan. The patient will call their primary care physician within 24 hours to arrange follow-up and will return to the Emergency Department with any new, persistent or worsening symptoms. Discharge - Discharge Information Problems reviewed: Yes Clinical Impression/Diagnosis: Cough, Viral syndrome, Nasal congestion, Pharyngitis Condition: Good Disposition: HOME - Admission No - Additional Discharge Information Prescriptions: Albuterol Sulfate Inhaler - [Ventolin HFA Inhaler -] 1 - 2 inh PO Q4H #1 inhaler Azithromycin 250 mg PO DAILY #6 tablet - Follow up/Referral Referrals: Yvon Meeks MD [Primary Care Provider] - - Patient Discharge Instructions Patient Printed Discharge Instructions: DI for Common Cold Additional Instructions: Follow-up with your primary care doctor within 2 to 3 days. Drink plenty of fluids and stay hydrated. Return to the emergency department if you have any new, worsening or concerning symptoms - Post Discharge Activity
[2019-05-23 14:34] VITALS: BP 128/85; PULSE 80; TEMP 98.7; BMI 29.9
== END 2019-05-23 14:52 | disposition home or self-care (01) ==
LOC: FER 13:45
DX: B34.9 Viral infection, unspecified (principal); R09.81 Nasal congestion; J02.9 Acute pharyngitis, unspecified; R05 Cough; Z88.0 Allergy status to penicillin
CPT/HCPCS: 99281-25

== ENCOUNTER 2020-01-05 22:32 | Emergency (ER) | payer OTHER ==
[2020-01-05] MEDS ORDERED: IBUPROFEN 600 MG TABLET (FP) PO ONE (22:36)
[2020-01-05 22:38] VITALS: BP 154/67; PULSE 96; TEMP 98.5; BMI 25.7
[2020-01-05] MEDS ORDERED: TETRACAINE 0.5% HCL 0.6ML DROPPER.BOTTLE OP ONE (22:44)
[2020-01-05] MEDS ORDERED: ERYTHROMYCIN 0.5% OPHTHALMIC OINTMENT 3.5 GM TUBE OD ONE (22:45)
[2020-01-05] MEDS ORDERED: FLUORESCEIN NA 1 EA STRIP OD ONE (22:45)
[2020-01-05] MEDS ORDERED: TETRACAINE 0.5% OPHTH SOLN 2 ML BOTTLE ONE (22:47)
[2020-01-05] MEDS ORDERED: FLUORESCEIN NA 1 EA STRIP ONE (22:47)
[2020-01-05] MEDS ORDERED: ERYTHROMYCIN 0.5% OPHTHALMIC OINTMENT 3.5 GM TUBE ONE (22:47)
--- NOTE | 2020-01-05 22:53 | PDOC ---
History of Present Illness - General Chief Complaint: Eye Problem Stated Complaint: EYE PROBLEM Time Seen by Provider: 01/05/20 22:44 History Source: Patient - History of Present Illness Initial Comments: 01/05/20 49-year-old male complaining of bilateral eye pain after welding with non- welding shield. Patient reported that his shield was not proper for welding now with bilateral eye pain and photosensitivity. Denies vision loss, vision changes 01/06/20 03:43 Past History - Medical History Allergies/Adverse Reactions: Allergies Allergy/AdvReac Type Severity Reaction Status Date / Time Penicillins Allergy Verified 12/24/19 22:38 Home Medications: Ambulatory Orders FENTANYL 75mcg PATCH [DURAGESIC 75mcg PATCH -] 1 patch TD Q72H patch.td72 MDD 75mcg 05/27/17 Albuterol Sulfate Inhaler - [Ventolin HFA Inhaler -] 1 - 2 inh PO Q4H #1 inhaler 04/27/19 Aspirin [Aspirin EC] 81 mg PO DAILY 04/29/19 Albuterol Sulfate Inhaler - [Ventolin HFA Inhaler -] 1 - 2 inh PO Q4H #1 inhaler 05/23/19 Azithromycin 250 mg PO DAILY #6 tablet 05/23/19 Oxycodone HCl [Oxycontin] 60 mg PO Q6H 05/23/19 Erythromycin 0.5% Eye Ointment [Erythromycin 0.5% Eye Ointment -] 1 applic OD TID #1 tube 01/05/20 Cancer: No Cardiac Disorders: Yes ([place] 2008; s/p cath) COPD: No DVT: No HTN: Yes Hypercholesterolemia: Yes Lung CA: No - Surgical History Abdominal Surgery: (SPLENECTOMY; RIGHT KIDNEY REMOVED) Appendectomy: Yes Cardiac Surgery: Yes (cardiac cath no stents) Orthopedic Surgery: Yes (spinal sx x10) - Immunization History Immunization Up to Date: Yes - Psycho-Social/Smoking History Smoking Status: Yes Smoking History: Current every day smoker Years of Tobacco Use: 15 Have you smoked in the past 12 months: Yes Number of Cigarettes Smoked Daily: 6 If you are a former smoker, when did you quit?: 2 [place] Cigars Per Day: 0 Information on smoking cessation initiated: No 'Breaking Loose' booklet given: 08/17/17 - Substance Abuse Hx (Audit-C & DAST Scrn) How often the patient has a drink containing alcohol: Never Score: In Men: 4 or > Positive; In Women: 3 or > Positive: 0 Screen Result (Pos requires Nsg. Audit-10AR): Negative In the last yr the pt used illegal drug/Rx for NonMed reason: No Score: Yes response is considered Positive: 0 Screen Result (Positive result requires Nsg. DAST-10): Negative Review of Systems - Review of Systems Able to Perform ROS?: Yes Is the patient limited [place] Citizen proficient: No Constitutional: No: Symptoms Reported, See HPI, Chills, Diaphoresis, Fever, Loss of Appetite, Malaise, Night Sweats, Weakness, Weight Stable, Unintentional Wgt. Loss, Unexplained wgt Loss, Other HEENTM: Yes: Eye Pain. No: Symptoms Reported, See HPI, Blurred Vision, Tearing, Recent change in vision, Double Vision, Cataracts, Ear Pain, Ocular Prothesis, Ear Discharge, Nose Pain, Nose Congestion, Tinnitus, Nose Bleeding, Hearing Loss, Throat Pain, Throat Swelling, Mouth Pain, Dental Problems, Difficulty Swallowing, Mouth Swelling, Other *Physical Exam - Vital Signs Last Vital Signs Temp Pulse Resp BP Pulse Ox 98.5 F 96 H 19 154/67 98 01/05/20 22:36 01/05/20 22:36 01/05/20 22:36 01/05/20 22:36 01/05/20 22:36 - Physical Exam General Appearance: Yes: Appropriately Dressed HEENT: positive: Other (both sclera injected. no flurosceine uptake . vision intact) Extremity: positive: Normal Inspection Integumentary: positive: Normal Color, Dry, Warm Neurologic: positive: Fully Oriented, Alert Medical Decision Making - Medical Decision Making 01/06/20 03:57 A: UV keratitis P: tetracaine; erythromycin; fluroscein ophthalmology evaluation Discharge - Discharge Information Problems reviewed: Yes Clinical Impression/Diagnosis: UV keratitis Qualifiers: Laterality: bilateral Qualified Code(s): H16.133 - Photokeratitis, bilateral Condition: Stable Disposition: HOME - Additional Discharge Information Prescriptions: Erythromycin 0.5% Eye Ointment [Erythromycin 0.5% Eye Ointment -] 1 applic OD TID #1 tube - Follow up/Referral Referrals: Jai Watkins MD [Staff Physician] - Call tomorrow - Patient Discharge Instructions Patient Printed Discharge Instructions: DI for Eye Flash Burn Additional Instructions: use erythromycin as prescribed. follow up with an eye doctor as soon as possible return to the ER for any worsening symptoms - Post Discharge Activity Work/Back to School Note: Back to Work
== END 2020-01-05 23:12 | disposition home or self-care (01) ==
LOC: JER 22:32
DX: H16.133 Photokeratitis, bilateral (principal)
CPT/HCPCS: 99283-25

== ENCOUNTER 2020-01-31 15:28 | Emergency (ER) | payer OTHER ==
--- OUTSIDE RECORDS SUMMARY | 2020-01-31 15:45 | XMS ---
:1970 Author Organization [facility] Care Team Providers Name Role Phone OSITO REYNOSO MD Unavailable Unavailable MD Bob D Unavailable Unavailable Oliver MORGAN JR, MD Unavailable Unavailable Pilar REYNOSO MD Unavailable Unavailable MD Bob D Unavailable Unavailable Oliver MORGAN JR, MD Unavailable Unavailable MD Bob D Unavailable Unavailable MD Jesus Unavailable MD Jesus Unavailable MD Jesus Unavailable MD Jesus Unavailable MD Jesus Unavailable MD Jesus Unavailable MD Jesus Unavailable MD TIM Unavailable Unavailable MD TIM Unavailable Unavailable Navin Unavailable Unavailable Navin Unavailable Unavailable Navin Unavailable Unavailable Oliver MORGAN JR, MD Unavailable Unavailable MD Bob D Unavailable Unavailable MD Bob D Unavailable Unavailable Pilar REYNOSO MD Unavailable Unavailable Pilra REYNOSO MD Unavailable Unavailable Oliver MORGAN JR, MD Unavailable Unavailable Oliver MORGAN JR, MD Unavailable Unavailable Pilar REYNOSO MD Unavailable Unavailable Oliver MORGAN JR, MD Unavailable Unavailable MD Bob D Unavailable MD Bob D Unavailable MD Bob D Unavailable Orestes Nice MD Unavailable Unavailable Pilar REYNOSO MD Unavailable Osmar, H MD Unavailable Unavailable Osmar, H MD Unavailable Unavailable Osmar, H MD Unavailable Unavailable Osmar, H MD Unavailable Unavailable Osmar, H MD Unavailable Unavailable Osmar, H MD Unavailable Unavailable Osmar, H MD Unavailable Unavailable Osmar, H MD Unavailable Unavailable Osmar, H MD Unavailable Unavailable MD Elliott Rojas Unavailable Unavailable Pilar REYNOSO MD Unavailable Unavailable McGurty Unavailable Unavailable McGurty Unavailable Unavailable McGurty Unavailable Unavailable McGurty Unavailable Unavailable EDDIE GIORDANO MD, A Unavailable Unavailable NONE Unavailable Unavailable [facility] Unavailable Unavailable Re-disclosure Warning The records that you are about to access may contain information from federally- assisted alcohol or drug abuse programs. If such information is present, then the following federally mandated warning applies: This information has been disclosed to you from records protected by federal confidentiality rules (42 CFR part 2). The federal rules prohibit you from making any further disclosure of this information unless further disclosure is expressly permitted by the written consent of the person to whom it pertains or as otherwise permitted by 42 CFR part 2. A general authorization for the release of medical or other information is NOT sufficient for this purpose. The Federal rules restrict any use of the information to criminally investigate or prosecute any alcohol or drug abuse patient.The records that you are about to access may contain highly sensitive health information, the redisclosure of which is protected by Article 27-F of the [facility] Public Health law. If you continue you may haveaccess to information: Regarding HIV / AIDS; Provided by facilities licensed or operated by the [facility] Office of Mental Health; or Provided by the [facility] Office for People With Developmental Disabilities. If such information is present, then the following [facility] mandated warning applies: This information has been disclosed to you from confidential records which are protected by state law. State law prohibits you from making any further disclosure of this information without the specific written consent of the person to whom it pertains, or as otherwise permitted by law. Any unauthorized further disclosure in violation of state law may result in a fine or shelter sentence or both. A general authorization for the release of medical or other information is NOT sufficient authorization for further disclosure. Allergies and Adverse Reactions Type Description Substance Reaction Status Data Source(s ) D penicillins penicillins tongue swelling [place] [facility] 1 PENICILLIN PENICILLIN NEXTGEN ([facility]) Encounters Encounter Providers Location Date Indications Data Source(s ) Inpatient Attender: Juan J KIDD XR-3S 07/05/2019 [facility] [place] [facility]ender[facility] 07:49:34 AM [facility] Jj ArceoyAttender: EST - [facility] JJ MORGAN JR 07/08/2019 MDAttender: JJ 09:10:00 AM EDDIE GIORDANO MDAttender: EDT JJ MORGAN JR MDAttender: JJ MORGAN JR MDAttender: JJ MORGAN JR MDAttender: JJ MORGAN JR MDAttender: JJ MORGAN JR MDAdmitter: Juan J Lee MDReferrer: NONE NONEConsultant: TAMIKA DUMONT MDConsultant: MD Elvis RojasConsultant: MD Elvis RojasConsultant: MD Elvis RojasConsultant: MD Elvis RojasConsultant: MD Elvis RojasConsultant: MD Elvis RojasConsultant: MD Elvis Rojas CHEST PAIN Patient discharged. Inpatient Attender: [facility] 07/05/2019 [facility] rosalio [facility] 07:49:34 AM [facility] 07/08/2019 [facility] 09:10:00 AM EDT Outpatient Attender: [id number] 06/17/2019 [facility] 01:53:44 PM EST [facility] ition) Patient admitted. Inpatient Attender: [facility] ICU-PCU 09/30/2018 R07.9 Chest [facility] - Vamsi Ponce: Allen 01:12:00 PM EDT - diana Prasad MDAdmitter: 10/01/2018 [facility] Allen Prasad MD 03:36:00 PM EDT R07.9 Chest pain Patient discharged. Emergency Attender: OSITO KIDD XR-ED 06/11/2018 CHEST PAIN [place] [facility] - MDAttender: OSITO REYNOSO 04:31:00 AM [facility] MDAttender: OSITO REYNOSO 06/11/2018 Hospit al Center MDAttender: OSITO REYNOSO 05:59:00 AM EST MDAttender: OSITO REYNOSO MDAttender: OSITO REYNOSO MDAttender: OSITO REYNOSO MD CHEST PAIN R Attender: MD Humberto Carlisle 5T-HCM 11/28/2017 12:00:00 AM E DT S - Juve Nice - 03/06/2018 11:59:00 PM Hospital EST Medications Medication Brand Start Product Dose Route Administrative Pharmacy [facility] Indications Reaction Description Data Name Date Form Instructions Instructions Source(s) Aspirin 81 aspiri 07/07/ Enteric 81.0 Oral [place] MG Delayed n 81 2020 Coated mg [facility] Release mg 08:20: Tablet an - Oral Tablet oral 00 AM [facility] aspirin 81 enteri EDT [facility] mg oral c Hospital enteric coated Center coated tablet tablet atorvastati atorva 07/07/ Tablet 20.0 Oral [place] n 20 MG statin 2020 mg [facility] Oral Tablet 20 mg 08:19: an - atorvastati oral 00 AM [facility] n 20 mg tablet EDT [facility] oral tablet Hospital Center 24 HR isosor 07/07/ 60.0 Oral [place] Isosorbide bide 2020 mg [facility] Mononitrate mononi 08:19: an - 60 MG trate 00 AM [facility] Extended 60 mg EDT [facility] Release oral Hospital Oral Tablet tablet Center isosorbide , mononitrate extend 60 mg oral ed tablet, releas extended e release 24 HR metopr 03/ Extended 25.0 Oral [place] metoprolol olol 2020 Release mg Pres[facility] vu succinate succin 08:19: Tablet an - 25 MG ate 25 00 AM [facility] Extended mg EDT [facility] Release oral Hospital Oral Tablet tablet Center metoprolol , succinate extend 25 mg oral ed tablet, releas extended e release 12 HR Ranexa 07/07/ Extended 500.0 Oral [place] ranolazine 500 mg 2020 Release mg [facility] 500 MG oral 08:19: Tablet an - Extended tablet 00 AM [facility] Release , EDT [facility] Oral Tablet extend Hospit al Ranexa 500 ed Center mg oral releas tablet, e extended release 12 HR ranola 06/11/ Oral [place] ranolazine zine 2019 [facility] 500 MG (Ranex 04:46: an - Extended a 500 56 AM [facility] Release mg EST [facility] Oral Tablet oral Hospital ranolazine tablet Center (Ranexa 500 , mg oral extend tablet, ed extended releas release) e) nitroglycer [id number] in 2019 [facility] (Nitrostat) 04:43: an - 56 AM [facility] isosorbide [id number] 5.0 Oral [place] mononitrate 2017 mg Pres[facility] ri 03:08: an - 04 PM [facility] Flexeril [id number] 20.0 Oral [place] 2017 mg [facility] 03:07: an - 56 PM [facility] oxyCODONE [id number] 30.0 Oral [place] 2017 mg [facility] 03:07: an - 21 PM [facility] metoprolol d73705 .0 Oral [place] 2017 mg [facility] 03:07: an - 03 PM [facility] fentaNYL [id number] 2017 [facility] 03:06: an - 50 PM [facility] lisinopril [id number] 2.5 Oral [place] 2017 mg [facility] 03:06: an - 30 PM [facility] amLODIPine [id number] 5.0 Oral [place] 2017 mg [facility] 03:06: an - 22 PM [facility] multivitami o65553 .0 Oral [place] n (Multiple 2011 tab [facility] Vitamins 07:24: an - oral 40 AM [facility] tablet) [facility] Insurance Providers Payer name Policy type Policy ID Covered Covered green party's Policy P tommy / Coverage green party ID relationship to [place] Inf ormation type [place] [facility] MEDICAID [id number] O [facility] [place] [id number] [facility] Medicaid [id number] 1 [id number] And Child Health Plus Medicaid GME Medicaid [id number] 1 [id number] F [facility] Medicaid Medicaid [id number] 1 [id number] [facility] [place] [id number] Problems, Conditions, and Diagnoses Code Display Name Description Problem Type Effective Data Sour ce(s) Dates R0 Other chest pain Other chest pain Diagnosis 07/05/2019 [place] [facility] 07:49:34 AM - [facility] R07.9 Chest pain R07.9 Chest pain Diagnosis 09/30/2018 S - New 03:00:00 PM [facility] J45.909 Unspecified asthma, Uncomplicated Diagnosis 09/30/2018 S - New uncomplicated asthma 03:00:00 PM [facility] R07.89 Other chest pain Other chest pain Diagnosis 09/30/2018 S - New 03:00:00 PM [facility] 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 09/30/2018 S - New infarction infarction 03:00:00 PM [facility] E66.9 Obesity, Obesity Diagnosis 09/30/2018 S - New unspecified 03:00:00 PM [facility] M54.5 Low back pain Low back pain Diagnosis 09/30/2018 [facility] - Ne w 03:00:00 PM [facility] 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 9 [facility] - New use of opiate use of opiate 03:00:00 PM [facility] analgesic analgesic [facility] E78.5 Hyperlipidemia, Hyperlipidemia Diagnosis 09/30/2018 S - New unspecified 03:00:00 PM [facility] I10 Essential (primary) Essential Diagnosis 09/30/2018 S - New hypertension hypertension 03:00:00 PM [facility] Z68.35 Body mass index Body mass index Diagnosis 09/30/2018 S - New (BMI) 35.0-35.9, (BMI) of 35.0 to 03:00:00 PM R nickielle adult 35.9 in adult EDT Hospital I25.10 Atherosclerotic Atherosclerosis of Diagnosis 09/30/2018 M HS - New heart disease of [place] coronary 03:00:00 PM Ro [place] coronary artery without EDT Hospi kel artery without angina pectoris angina pectoris CHEST PAIN CHEST PAIN Diagnosis 09/30/2018 [facility] - New 01:12:00 PM [facility] R07.9 Chest pain, Chest pain Diagnosis 09/30/2018 S - New unspecified 12:00:00 AM [facility] No data available No data available Diagnosis [place] [facility] for this section for this section - [facility] Cristofer artis Surgeries/Procedures Procedure Description Date Indications Data Source(s) COLLECTION VENOUS BLOOD 07/07/2019 [place] [facility] - VENIP[place]URE 04:00:00 AM [facility] COLLECTION VENOUS BLOOD 07/06/2019 [place] [facility] 07:53:[facility] 07/05/2019 [place] [facility] - [place]ENIP[place]CTURE 06:42:00 PM [facility] COLLECTION VENOUS BLOOD 07/05/2019 [place] [facility] - [place]IP[place]CTURE 06:42:00 PM [facility] COLLECTION VENOUS BLOOD 07/05/2019 [place] [facility] - [place]ENIP[place]CTURE 12:00:00 PM [facility] COLLECTION VENOUS BLOOD 07/05/2019 [place] [facility] - [place]ENIP[place]CTURE 12:00:00 PM [facility] COLLECTION VENOUS BLOOD 07/05/2019 [place] [facility] - [place]IP[place]CTURE 08:21:00 AM [facility] COLLECTION VENOUS BLOOD 07/05/2019 [place] [facility] - [place]IP[place]CTURE 08:21:00 AM [facility] COLLECTION VENOUS BLOOD 07/05/2019 [place] [facility] [place]IP[place]CTURE 08:21:00 AM [facility] COLLECTION VENOUS BLOOD 07/05/2019 [place] [facility] [place]IP[place]URE 08:21:00 AM [facility] COLLECTION VENOUS BLOOD 07/05/2019 [place] [facility] [place]IP[place]CTURE 08:04:00 AM [facility] COLLECTION VENOUS BLOOD 07/05/2019 [place] [facility] - [place]ENIPUNCTURE 08:04:00 AM [facility] COLLECTION VENOUS BLOOD 07/05/2019 [place] [facility] - [place]ENIPUNCTURE 08:04:00 AM [facility] COLLECTION VENOUS BLOOD 07/05/2019 [place] [facility] - [place]ENIPUNCTURE 08:04:00 AM [facility] COLLECTION VENOUS BLOOD 07/05/2019 [place] [facility] - [place]ENIPUNCTURE 07:53:25 AM [facility] COLLECTION VENOUS BLOOD 07/05/2019 [place] [facility] - [place]ENIPUNCTURE 07:53:25 AM [facility] COLLECTION VENOUS BLOOD 07/05/2019 [place] [facility] - [place]ENIP[place]CTURE 07:53:25 AM [facility] COLLECTION VENOUS BLOOD 06/11/2018 [place] [facility] - VENIPUNCTURE 04:35:00 AM [facility] Results ID Date Data Source [id number] 12/27/2019 02:34:00 PM EDT [facility] Name Value Range Interpretation Description Data Sup porting Code Source(s) Document(s ) 2018 Novel [facility] Coronavirus RNA Interpretation Unspecified Specimen Qualitative JONEL Probe Detection This lab was ordered by [facility] and reported by [facility]. ID Date Data Source [id number] 11/26/2019 12:00:00 AM EDT [facility] Name Value Range Interpretation Code Description Data Juana rce(s) Supporting Document(s ) 2018-nCoV [facility] RNA XXX JONEL+probe- Imp This lab was ordered by [facility] and reported by [facility] ID Date Data Source [id number] 08/25/2019 12:00:00 AM EDT [facility] Name Value Range Interpretation Code Description Data Juana rce(s) Supporting Document(s ) 2019-nCoV [facility] RNA XXX JONEL+probe- Imp This lab was ordered by [facility] and reported by [facility] ID Date Data Source [id number] 07/07/2019 09:55:00 AM EDT [facility] [id number] [facility] Name Value Range Interpretation Description Data Source(s ) Supporting Code Document(s ) RADRPT <table border="1" [facility] oniel width="95%"><colgr - [facility] oup><col Hospital Center width="25%"></col> <col width="25%"></col> <col width="25%"></col> <col width="25%"></col> </colgroup><tbody> <tr><td>Exam Date Time</td><td>Proce hipolitoe</td><td>Perfo rming Provider</td><td>Ghassan earle</td></tr><tr ><td>07/07/19 10:15 AM</td><td>US Echocardiogram Complete</td><td>F UMO RCS, SEAN; </td><td>Auth (Verified)</td></t r></tbody></table> <paragraph>Notes:< /paragraph><paragr aph>(US Echocardiogram Complete) Reason For Exam: Chest Pain</paragraph><p aragraph><content> Report</content><b r/><content ID="[id number]">TRANSTHORACIC ECHOCARDIOGRAM:

INDICATION: Chest pain

Kayce ent underwent a complete transthoracic echocardiogram study. Two
dimensiona l, color-flow Doppler, pulsed and continuous wave Doppler,
and M-mode examinations were performed.

This is a technically difficult study due to patient's body habitus.

Left ventricular size is normal. Left ventricular systolic function
is normal. The estimated left ventricular ejection fraction is 60%.
Regional wall motion abnormalities cannot be excluded with certainty.
How ever, on the views available, wall motion is normal. Wall thickness
is normal. However, precise M-mode quantification is inaccurate on the
current study. Doppler interrogation of the mitral valve inflows is
inconclusiv e for the diagnosis of diastolic dysfunction. The right
ventricl e is poorly visualized but is grossly normal in size.

The left atrium is dilated. The right atrium is normal in size. The
interatria l septum is poorly visualized.
<b r/>The mitral valve is structurally normal with no regurgitation, and no
stenosis or prolapse. The tricuspid valve is poorly visualized, and
has trivial regurgitation. Estimated right ventricular systolic
press ures are normal. The aortic valve is trileaflet, without Doppler
eviden ce of significant stenosis, and has no insufficiency. The
pulmonic valve is poorly visualized, and has no significant stenosis,
and has no insufficiency.<br/ >
The aortic root is normal in size. The pulmonary artery is not well
visualize d. There is no pericardial effusion.
<br/ >IMPRESSION:
< br/>1. Technically difficult study.
2. Normal left ventricular systolic function, with an estimated
ejec tion fraction of 60%.
3. Left atrial enlargement.
4 . No prior study available for comparison.</allison nt>
<content>* Final

Dic tated: 07/07/2019 12:08 pm CORKY GUZMAN MD

Signed (Electronic Signature): 07/07/2019 12:08 pm
Signed by: CORKY GUZMAN MD
Transcribed by: OSEI Technologist: GEREMIAS</content></p aragraph> ID Date Data Source [id number] 07/07/2019 08:04:58 AM EDT [facility] [id number] [facility] Name Value Range Interpretation Description Data Source(s ) Supporting Code Document(s ) RADRPT <table border="1" [facility] oniel width="95%"><[facility] roup><col [facility] width="25%"></col ><col width="25%"></col ><col width="25%"></col ><col width="25%"></col ></colgroup><tbod y><tr><td>Exam Date Time</td><td>Proc edure</td><td>Per forming Provider</td><td> Status</td></tr>< tr><td>07/07/19 8:25 AM</td><td>NM Stress/rest Spect Multi-2 day</td><td>BENSO N ARRT NMTCB, JOHAN; </td><td>Auth (Verified)</td></ tr></tbody></tabl e><paragraph>Note s:</paragraph><pa ragraph>(NM Stress/rest Spect Multi-2 day) Reason For Exam: Chest Pain</paragraph>< paragraph><conten t>Report</content >
<content ID="[id number]">SINGLE-DAY LEXISCAN SESTAMIBI STRESS TEST:

IN DICATION: Coronary Artery Disease

The patient underwent a routine, single-day sestamibi stress test
protocol , with Lexiscan infusion. All injections were performed via
an intravenous line placed in the right antecubital fossa. The
patient received 11.0 mCi of sestamibi at rest, and resting images
were obtained 60 minutes after injection. The patient then received
0.4 mg of Lexiscan in a 10 second bolus. 32.2 mCi of sestamibi was
injected 10 seconds after the Lexiscan bolus. Post-Lexiscan images
were obtained approximately 60 minutes after injection.
<b r/>Raw scintigraphic data, tomographic slices at rest and stress, polar
plots, and gated scintigraphic images for wall motion analysis were
reviewed .

On review of raw scintigraphic data, there is a large diaphragmatic<br/ >attenuation artifact, present on rest and stress image sets.

Re view of gated scintigraphic images for wall motion analysis reveals
jacob l left ventricular size, with normal function. The calculated
le ft ventricular ejection fraction is 59%. Wall motion is normal.

Review of tomographic slices at rest and stress, and the polar plots
reveals a moderate sized, moderate intensity, fixed perfusion defect
in the inferior and inferoseptal montes. There is no evidence of
inducible ischemia.

IMPRESSION :

1. Borderline single-day Lexiscan sestamibi stress test with fixed
perfusi on defects as noted above, without inducible ischemia.
2. Normal left ventricular systolic function and wall motion, with a
calculated ejection fraction of 59%.
3. Please see separate ECG analysis for full details during the stress
test.
4. No prior study available for comparison.</cont ent>
<content > Final
Dictate d By: CORKY GUZMAN MD 07.07.2019 12:29 pm

Relea sed By: (Electronic Signature)
Si gned: CORKY GUZMAN MD 07.07.2019 12:29 pm

Trans cribed: 07.07.2019 12:31 pm</content></par agraph> ID Date Data Source [id number] 07/07/2019 04:00:00 AM EDT [facility] [id number] [facility] Name Value Range Interpretation Code Description Data Juana rce(s) Supporting Document(s ) EGFR Non [facility] - AA [facility] EGFR AA [facility] ID Date Data Source [id number] 07/07/2019 04:00:00 AM EDT [facility] [id number] [facility] Name Value Range Interpretation Description Data Source(s ) Supporting Code Document(s ) Magnesium 2.0 mg/dL Normal (applies to [facility] results) Hospital Center ID Date Data Source [id number] 07/07/2019 04:00:00 AM EDT [facility] [id number] Hospital Center Name Value Range Interpretation Description Data Source(s ) Supporting Code Document(s ) Glucose Lvl 98 mg/dL Normal (applies [facility] oniel to non-[facility] results) Hospital Center Creatinine 0.60 Below low normal [facility] oniel mg/dL - [facility] BUN 14 mg/dL Normal (applies [place] [facility] n to non[facility] results) Hospital Center Sodium Lvl 140 Normal (applies [facility] an mmol/L to non[facility] results) Hospital Center Chloride 102 Normal (applies [facility] n mmol/L to non[facility] results) Hospital Center Potassium Lvl 4.4 Normal (applies [place] [facility] erian mmol/L to [facility] results) Hospital Center CO2 28 Normal (applies [facility] n mmol/L to [facility] results[facility] Hospital Center AGPK 14.4 Normal (applies [facility] n to [facility] results) Hospital Center Albumin Lvl 4.0 g/dL Normal (applies [facility] oniel to [facility] results[facility] Hospital Center Calcium Lvl 9.3 Normal (applies [facility] oniel mg/dL to [facility] results) Hospital Center Total Protein 6.5 g/dL Normal (applies [facility] to [facility] results) Hospital Center Alk Phos 59 Normal (applies [facility] n unit/L to [facility] results[facility] Hospital Center AST 27 Normal (applies [facility] n unit/L to [facility] results) Hospital Center ALT 36 Normal (applies [facility] n unit/L to [facility] results) Hospital Center Bili Total 0.50 Normal (applies [facility] an mg/dL to [facility] results) Hospital Center ID Date Data Source [id number] 07/06/2019 07:53:25 AM EDT [facility] [id number] Hospital Center Name Value Range Interpretation Code Description Data Juana rce(s) Supporting Document(s ) EGFR [facility] Hospital Center ID Date Data Source [id number] 07/06/2019 07:53:25 AM EDT [facility] [id number] Hospital Center Name Value Range Interpretation Description Data Source(s ) Supporting Code Document(s ) Neutro 65.9 % Normal (applies [place] [facility] Percent to non-numeric - [facility] results) Hospital Center Lymph 21.7 % Normal (applies [place] [facility] [place] Percent to non-numeric - [facility] results) [facility] [place] Percent 8.9 % Normal (applies [place] [facility] [place] to non-[facility] results) Hospital [facility] Baso Percent 0.5 % Normal (applies [place] [facility] [place] non[place] - [facility] results) [facility] Eos Percent 3.0 % Normal (applies [place] [facility] to non-[facility] results) [facility] [place] 0.6 Normal (applies [place] [facility] Absolute x10(3)/mc to non-numeric - [facility] L results) [facility] Neutro 4.6 Normal (applies [place] [facility] Absolute x10(3)/mc to non-numeric - [facility] results) [facility] Lymph 1.5 Normal (applies [place] [facility] Absolute x10(3)/mc to non-numeric - [facility] results) [facility] Baso 0.0 Normal (applies [place] [facility] Absolute x10(3)/mc to non-numeric - [facility] L results) Hospital [facility] Eos Absolute 0.2 Normal (applies [place] [facility] [place] x10(3)/mc to non-numeric - [facility] results) Hospital Center ID Date Data Source [id number] 07/06/2019 07:53:25 AM EDT [facility] [id number] Hospital Center Name Value Range Interpretation Code Description Data Juana rce(s) Supporting Document(s ) TSH 2.932 Normal (applies to [place] [facility] - mIU/L non-numeric [facility] results) Hospital Center ID Date Data Source [id number] 07/06/2019 07:53:25 AM EDT [facility] [id number] Hospital Center Name Value Range Interpretation Description Data Source(s ) Supporting Code Document(s ) BUN 15 mg/dL Normal (applies [place] [facility] to non-[facility] results) [facility] Glucose Lvl 112 Above high normal [facility] Sodium Lvl 140 Normal (applies [place] [facility] mmol/L to non-[facility] results) [facility] Chloride 104 Normal (applies [place] [facility] [place] mmol/L to [facility] results[facility] Creatinine 0.65 Below low normal [facility]dL [facility] Potassium Lvl 3.9 Normal (applies [place] [facility] erian mmol/L to [facility] results) [facility] Calcium Lvl 9.1 Normal (applies [place] [facility] mg/dL to [facility] results) [facility] CO2 26 Normal (applies [place] [facility] mmol/L to [facility] results) [facility] AGPK 13.9 Normal (applies [place] [facility] to [facility] results) Hospital Center ID Date Data Source [id number] 07/06/2019 07:53:25 AM EDT [facility] [id number] Hospital Center Name Value Range Interpretation Description Data Source(s ) Supporting Code Document(s ) WBC 7.0 Normal ([facility] L results) [facility] Hct 41.7 % Below low normal [facility] RBC 4.78 Normal (applies to [place] [facility] annie x10(6)/mc [facility] L results) Hospital Center Hgb 14.3 g/dL Normal (applies to [facility] results) Hospital [facility] MCV 87.2 fL Normal (applies to [facility] non-[facility] results) Hospital Center MCH 29.8 pg Normal (applies to [facility] results) [facility] Platelet 127 Below low normal [facility] an x10(3)/ - [facility] L Hospital [facility] RDW 14.2 % Normal (applies to [facility] results) Hospital [facility] MCHC 34.2 g/dL Normal (applies to [facility] non-[facility] results) [facility] MPV 10.1 fL Normal (applies to [facility] results) Hospital Center ID Date Data Source [id number] 07/06/2019 07:53:25 AM EDT [facility] [id number] Hospital [facility] Name Value Range Interpretation Description Data Source(s ) Supporting Code Document(s ) Trig 159 mg/dL Above high normal [facility] Chol 145 mg/dL Normal (applies to [facility] results) Hospital [facility] Risk 3.54 Normal (applies to [facility] Factor [facility] results) [facility] Lipo Kaylin Clear Normal (applies to [facility] (07/06/19 [facility] 7:53 AM) results) [facility] Direct HDL 41.0 Normal (applies to [facility] erian mg/dL [facility] results) [facility] LDL Calc 72.20 [facility] ID Date Data Source [id number] 07/06/2019 07:53:25 AM EDT [facility] [id number] [facility] Name Value Range Interpretation Code Description Data Juana rce(s) Supporting Document(s ) Hgb A1c 5.1 % [facility] ID Date Data Source [id number] 07/06/2019 06:24:00 AM EDT [facility] [id number] Hospital Center Name Value Range Interpretation Description Data Source(s ) Supporting Code Document(s ) RADRPT <table border="1" [place] [facility] width="95%"><colgr - Audi love oup><col Hospital Center width="25%"></col> <col width="25%"></col> <col width="25%"></col> <col width="25%"></col> </colgroup><tbody> <tr><td>Exam Date Time</td><td>Proce dure</td><td>Perfo rming Provider</td><td>S tatus</td></tr><tr ><td>07/06/19 6:24 AM</td><td>XR Elbow 2 Views Left</td><td>CLIFTON DREW; </td><td>Auth (Verified)</td></t r></tbody></table> <paragraph>Notes:< /paragraph><paragr aph>(XR Elbow 2 Views Left) Reason For Exam: Swelling</paragrap h><paragraph><cont ent>Report</conten t>
<content ID="[id number]">elbow series.

C linical History: Swelling.

2 views of the left elbow was performed. Radiograph reveals normal
mineral ization of the bones. No fracture or dislocation is seen. No
posterior fat-pad is noted. An Angiocath is present in the antecubital
fo ssa

Impre ssion : normal-appearing elbow. 2. Angiocath present in the
antecubita l fossa</content>
<content> Final
Dictated By: ALOK NOLAN MD 07.06.2019 11:05 am

Releas ed By: (Electronic Signature)
Sig reji: ALOK NOLAN MD 07.06.2019 11:05 am

Transc ribed: 07.06.2019 11:07 am</content></para graph> ID Date Data Source [id number] 07/05/2019 06:42:00 PM EST [facility] [id number] [facility] Name Value Range Interpretation Description Data Source(s ) Supporting Code Document(s ) Troponin [facility] ID Date Data Source [id number] 07/05/2019 06:42:00 PM EST [facility] [id number] [facility] Name Value Range Interpretation Description Data Source(s ) Supporting Code Document(s ) Troponin Neg Normal (applies [facility] P[facility] (07/05/19 to non-numeric [facility] 6:42 PM) results) Hospital Center ID Date Data Source [id number] 07/05/2019 12:00:00 PM EST [facility] [id number] [facility] Name Value Range Interpretation Description Data Source(s ) Supporting Code Document(s ) Troponin [facility] ID Date Data Source [id number] 07/05/2019 12:00:00 PM EST [facility] [id number] [facility] Name Value Range Interpretation Description Data Source(s ) Supporting Code Document(s ) Troponin Neg Normal (applies [facility] Prelim (07/05/19 to non-numeric [facility] 12:00 PM) results) Hospital Center ID Date Data Source [id number] 07/05/2019 11:02:00 AM EST [facility] [id number] [facility] Name Value Range Interpretation Description Data Source(s ) Supporting Code Document(s ) RADRPT <table border="1" [facility] oniel width="95%"><[facility] keily roup><col Hospital Center width="25%"></col ><col width="25%"></col ><col width="25%"></col ><col width="25%"></col ></colgroup><tbod y><tr><td>Exam Date Time</td><td>Proc edure</td><td>Per forming Provider</td><td> Status</td></tr>< tr><td>07/05/19 11:22 AM</td><td>CT Pulmonary Embolism</td><td> SASKIA VALENTINO; </td><td>Auth (Verified)</td></ tr></tbody></tabl e><paragraph>Note s:</paragraph><pa ragraph>(CT Pulmonary Embolism) Reason For Exam: Other;Chest pain, PE suspected, low/intermediate prob, positive D-dimer</paragrap h><paragraph><con tent>Report</cont ent>
<content ID="[id number]">CTA of the chest with contrast. Coronal and sagittal reconstructed<br/ >images were performed.
<b r/>CLINICAL HISTORY: Chest pain. Shortness of breath

A CTA of the chest was performed utilizing contiguous 1.25 mm slices
follow ed by 5 mm slices from the lung apices to the kidneys. Coronal
and sagittal reconstructed images were performed. Automated exposure
cont rol was used. 3-D reconstructed images were performed on a
dedicated workstation. 100 cc of Optiray 320 contrast was given.
Images reveal a 6 mm nodular density in or adjacent to the fissure and
the right middle lobe.. There is suboptimal opacification of the
pulmonary arteries. No large central pulmonary embolism is seen.. The
soft tissue and osseous structures are unremarkable. A spinal catheter
is present in the thoracic spine. No aortic aneurysm is visualized.
S mall mediastinal lymph nodes are seen. The visualized spleen,
pancr eas, bilateral adrenal glands and gallbladder are unremarkable.<br/ >There is decreased attenuation of the liver consistent with a fatty
liver.< br/>
IMPRESSI ON: Compared to CT dated 05/23/2016
1. There is suboptimal bosselation of the pulmonary arteries. No large
central pulmonary embolism seen.
2. 6 mm nodular density in or adjacent to the fissure in the right
middle lobe. This probably represents fluid in the fissure. Recommend
fol low-up CT in one year.
3. Spinal catheter present in the thoracic spinal canal..
4. Fatty liver</content><b r/><content> Final
Dictate d By: ALOK NOLAN MD 07.05.2019 11:41 am

Relea sed By: (Electronic Signature)
Si gned: ALOK NOLAN MD 07.05.2019 11:41 am

Trans cribed: 07.05.2019 11:44 am</content></par agraph> ID Date Data Source [id number] 07/05/2019 08:27:24 AM EST [facility] [id number] Hospital Center Name Value Range Interpretation Code Description Data Juana rce(s) Supporting Document(s ) RADRPT <table [facility] - [facility] width="95%"><col Hospital Cent er group><col width="25%"></co l><col width="25%"></co l><col width="25%"></co l><col width="25%"></co l></colgroup><tb giovani><tr><td>Exam Date Time</td><td>Pro cedure</td><td>P erforming Provider</td><td >Status</td></tr ><tr><td>07/05/19 8:27 AM</td><td>XR Chest 1 View</td><td>LENORE ERA KELLY PELLETIER; </td><td>Auth (Verified)</td>< /tr></tbody></ta ble><paragraph>N otes:</paragraph ><paragraph>(XR Chest 1 View) Reason For Exam: Chest Pain</paragraph> <paragraph><cont ent>Report</cont ent>
<conten t ID="[id number]">AP chest.

CLINICAL HISTORY: Chest pain

AP of the chest was performed. The radiograph is compared to prior
radiog raph dated 06/11/2018 . Radiograph reveals the cardiac silhouette
t o be within normal limits in size. The lung parenchyma is without
evid ence of infiltrate or consolidation. Small granulomas nodule
densi ties are seen in the right upper lobe. The the patient is status
post anterior fixation of the lower cervical spine. A spinal catheter
is present overlying the thoracic vertebra.
<b r/>IMPRESSION:
No acute infiltrate seen.
2. Small nodular densities right upper lobe. Consider CT of the chest.
3. Catheter present overlying thoracic spine.
4. Orthopedic hardware in cervical spine.</content>
<content> Final
Dictat ed By: ALOK NOLAN MD 07.05.2019 9:17 am

Rele ased By: (Electronic Signature)
S igned: ALOK NOLAN MD 07.05.2019 9:17 am

Nelson scribed: 07.05.2019 9:19 am</content></gabino ragraph> ID Date Data Source [id number] 07/05/2019 08:21:00 AM EST [facility] [id number] Hospital Center Name Value Range Interpretation Description Data Source(s ) Supporting Code Document(s ) Ddime 750.0 Above high normal [place] [facility] Quant ng/mL DDU - [facility] ID Date Data Source [id number] 07/05/2019 08:04:00 AM EST [facility] [id number] [facility] Name Value Range Interpretation Description Data Source(s ) Supporting Code Document(s ) [facility] ID Date Data Source [id number] 07/05/2019 08:04:00 AM EST [facility] [id number] [facility] Name Value Range Interpretation Code Description Data Juana rce(s) Supporting Document(s ) EGFR [facility] EGFR Non [facility] - AA [facility] ID Date Data Source [id number] 07/05/2019 08:04:00 AM EST [facility] [id number] [facility] Name Value Range Interpretation Description Data Source(s ) Supporting Code Document(s ) Neutro 67.1 % Normal (applies [place] [facility] Percent to non-numeric - [facility] results) [facility] Lymph 20.8 % Normal (applies [place] [facility] Percent to non-[facility] results) [facility] [place] Percent 9.1 % Normal (applies [place] [facility] [place] to non-[facility] results) [facility] Eos Percent 2.4 % Normal (applies [place] to non[facility] results) [facility] Neutro 4.4 Normal (applies [place] Absolute x10(3)/mc to non-numeric - [facility] L results) [facility] [place] 0.6 Normal (applies [place] Absolute x10(3)/mc to non-numeric - [facility] L results) [facility] Lymph 1.4 Normal (applies [place] Absolute x10(3)/mc to non-numeric - [facility] L results) [facility] Baso Percent 0.6 % Normal (applies [place] [facility] [place] to non-[facility] results) [facility] Eos Absolute 0.2 Normal (applies [place] [facility] [place] x10(3)/mc to non-[facility] L results) [facility] Baso 0.0 Normal (applies [place] [facility] Absolute x10(3)/mc to non-[facility] L results) Hospital Center ID Date Data Source [id number] 07/05/2019 08:04:00 AM EST [facility] [id number] [facility] Name Value Range Interpretation Description Data Source(s ) Supporting Code Document(s ) Troponin Neg Normal (applies [place] [facility] Prelim (07/05/19 to non-numeric [facility] 8:04 AM) results) Hospital Center ID Date Data Source [id number] 07/05/2019 08:04:00 AM EST [facility] [id number] [facility] Name Value Range Interpretation Code Description Data Juana rce(s) Supporting Document(s ) INR 1.0 Normal (applies to [place] [facility] - non-numeric results) [facility] PT 12.0 s Normal ([facility] results) [facility] ID Date Data Source [id number] 07/05/2019 08:04:00 AM EST [facility] [id number] [facility] Name Value Range Interpretation Description Data Source(s ) Supporting Code Document(s ) Magnesium 2.2 mg/dL Normal (applies to [place] [facility] non-[facility] results) Hospital Center ID Date Data Source [id number] 07/05/2019 08:04:00 AM EST [facility] [id number] [facility] Name Value Range Interpretation Description Data Source(s ) Supporting Code Document(s ) Glucose Lvl 125 Above high normal [facility] Sodium Lvl 141 Normal (applies [place] [facility] mmol/L to non-numeric - [facility] results) [facility] BUN 14 mg/dL Normal (applies [place] [facility] [place] to non-numeric - [facility] results) [facility] Potassium Lvl 4.0 Normal (applies [place] [facility] mmol/L to non-[facility] results) [facility] Creatinine 0.73 Normal (applies [place] mg/dL to non-[facility] results) [facility] AGPK 15.0 Normal (applies [place] to non-numeric - [facility] results) [facility] Chloride 103 Normal (applies [place] [facility] mmol/L to non-[facility] results) [facility] CO2 27 Normal (applies [place] [facility] mmol/L to non-numeric - [facility] results) [facility] Calcium Lvl 9.4 Normal (applies [place] mg/dL to non-[facility] results) [facility] Total Protein 7.2 g/dL Normal (applies [place] [facility] to non-numeric [facility] results) Hospital Center Albumin Lvl 4.6 g/dL Normal (applies [place] to non-[facility] results) [facility] AST 27 Normal (applies [place] unit/L to non-[facility] results) [facility] ALT 42 Normal (applies [place] [facility] unit/L to non-[facility] results) [facility] Bili Total 0.40 Normal (applies [place] mg/dL to non-[facility] results) [facility] Alk Phos 60 Normal (applies [place] unit/L to non-[facility] results) Hospital Center ID Date Data Source [id number] 07/05/2019 08:04:00 AM EST [place] [facility] [place] [id number] [facility] Center Name Value Range Interpretation Description Data Source(s ) Supporting Code Document(s ) WBC 6.5 Normal (applies to [place] [facility] x10(3)/mc non-numeric - [place] L results) [facility] RBC 5.26 Normal (applies to [place] [facility] x10(6)/mc [facility] - [facility] L results) [facility] Hgb 15.8 g/dL Normal ([facility] Hct 45.5 % Normal (applies to [facility] results) [facility] MCV 86.5 fL Normal (applies to [facility] results) [facility] MCH 30.0 pg Normal (applies to [facility]) [facility] MCHC 34.7 g/dL Normal (applies to [facility] results) [facility] RDW 13.8 % Normal (applies to [facility] results) [facility] Platelet 142 Normal (applies to [facility] x10(3)/ non-[facility] L results) [facility] MPV 10.4 fL Above high normal [facility] ID Date Data Source [id number] 09/30/2018 06:17:00 PM EDT [facility] EXAM: CT Angiography Chest With Contras t EXAM DATE/TIME: 09/30/2018 7:01 PM CLINICAL HISTORY: 47 years old, male; chest pain . Rule out dissection. TECHNIQUE: Imaging protocol: Axial computed tomographic ang iography images of the chest with intravenous contrast using CT angiography protocol. Coronal and sagittal reformatted images were created and reviewed. 3D rendering: MIP reconstructed images were created and reviewed. MIP and/or 3D reconstructed im ages were created and reviewed. Radiation optimization: [facility] scans [facility] use at least one of these dose optimization techniques: automated expos ure control; mA and/or kV adjustment per patient size (includes targeted exams wh ere dose is matched to clinical indication); or iterative reconstruction. COMPARISON: CR Chest Single AP view 09/30/2018 2:13 PM FINDINGS: Pulmonary arteries: Motion ar tifact compromises evaluation for pulmonary embolus. No main or central pulmonary em bolus is seen. Aorta: No thoracic aortic aneurysm. No thoracic aortic dissection. Lungs: No pulmonary consolidation. No pulmonary mass. Pleural space: No pleur al effusion. No pneumothorax. Heart: No pericardial effusion. Mediastinum: No h iatal hernia. Lymph nodes: A precarinal lymph node measures 1.0 x 2.0 cm. A righ t hilar lymph node measures 1.1 x 1.5 cm. A separate right hilar lymph node measures 1.1 x 1.6 cm. A right axillary lymph node measures 1.4 x 2.0 cm. Bones/joints: No acute fracture is identified. Soft tissues: Unremarkable. IMPRESSION: 1. No thoracic aortic aneurysm. No thoracic aortic dissection. 2. Motion artifact compromis es evaluation for pulmonary embolus. No main or central pulmonary embolus is seen. 3. Mediastinal, right hilar and right axillary lymphadenopathy. ==EXAM: CT Angiography Abdomen and Pelvis With Contrast EXAM DATE/TIME: 09/30/2018 7:01 PM CLINICAL HISTORY: 47 years old, male; chest pain. Rule out dissection. T ECHNIQUE: Imaging protocol: Axial computed tomographic angiography images of the ab domen and pelvis with intravenous contrast material. 3D rendering: MIP and/or 3D r econstructed images were created and reviewed. COMPARISON: CR Chest Single A P view 09/30/2018 2:13 PM FINDINGS: Tubes, catheters and devices: An electronic gen erator for a spinal stimulator is noted in the posterior subcutaneous tissues on th e right. There has been prior surgery in the lumbar spine. There are old bilateral pa rs interarticularis fractures at L4 with grade 1 anterolisthesis. VASCULATURE: A rterial system: No abdominal aortic aneurysm. No abdominal aortic dissection. The katie ac, superior mesenteric, renal, inferior mesenteric, common iliac, internal iliac , external iliac, common femoral and proximal femoral arteries are adequately patent w ithout significant narrowing, occlusion or aneurysm. ABDOMEN: Liver: The liver is enlarged measuring 22.2 cm. Gallbladder and bile ducts: The gallbladder is unremarka ble. Pancreas: The pancreas is unremarkable. Spleen: The spleen is enlarged measurin g 14.5 cm. Adrenals: The adrenal glands are unremarkable. Kidneys and ureters: A dukes bcentimeter right renal hypodensity is too small to accurately characterize and req uires no followup. No hydronephrosis is seen. Stomach and bowel: The wall of the derick joao antrum and proximal duodenum appears mildly prominent which may reflect gastr oduodenitis. Correlate clinically. The colon is unremarkable. Appendix: The appendix is not identified. PELVIS: Bladder: The bladder wall is prominent which may refl ect underdistention. Correlate with urinalysis. Reproductive: The prostate measures 3.4 x 3.7 cm. ABDOMEN and PELVIS: Intraperitoneal space: No free intraperi toneal air is seen. Bones/joints: No acute fracture is identified. Soft tissues: T iny fat containing umbilical hernia. Lymph nodes: A periportal lymph node measures 1.0 x 3.4 cm. IMPRESSION: 1. No abdominal aortic aneurysm. No abdominal aortic dis section. 2. Possible gastroduodenitis. Correlate clinically. 3. Hepatosplenomeg kadeem with periportal lymphadenopathy. 4. The bladder wall is prominent which may refl ect underdistention. Correlate with urinalysis. Name Value Range Interpretation Code Description Data Juana rce(s) Supporting Document(s ) ID Date Data Source [id number] 09/30/2018 02:15:00 PM EDT [facility] Study: Portable chest x-rayHistory: Ches t painComparison: No similar prior study.Technique: Portable chest x-ray.Fi ndings:Examination is underpenetrated.The heart appears normal in size.There is mi ld prominence of the lung interstitial markings.No large infiltrate, or pleural effusion is seen.Visualized osseous structures demonstrate demineralization and mild degenerative changes. Right mid clavicular deformity resembling healed f racture.Impression:No gross evidence of acute cardiopulmonary abnormality.There is mil d prominence of the lung interstitial markings. Name Value Range Interpretation Code Description Data [facility] rce(s) Supporting Document(s ) Procedure Social History Code Duration Value Status Description Data Source(s ) Tobacco smoking 07/05/2019 Smokes completed Smokes tobacco [facility] - consumption 02:24:17 PM tobacco daily (finding) [facility] unknown (finding) EST daily [facility] (finding) Alcohol UNK completed [facility] Vital Signs ID Date Data Source UNK Name Value Range Interpretation Code Description Data Source(s) Diastolic blood 68 mm[Hg] Normal (applies to 68 mm[Hg] [place] [facility] - pressure non-numeric results) [facility] Systolic blood 118 mm[Hg] Normal (applies to 118 mm[Hg] [place] [facility] - pressure non-numeric results) [facility] Mean blood 85 mm[Hg] 85 mm[Hg] [place] [facility] Diastolic blood 68 mm[Hg] Normal (applies to 68 mm[Hg] N [facility] - pressure non-numeric results) [facility] Systolic blood 118 mm[Hg] Normal (applies to 118 mm[Hg] [place] [facility] - pressure non-numeric results) [facility] Respiratory rate 18 br/min Normal (applies to 18 br/min [place] [facility] - non-numeric results) [facility] Peripheral Pulse 81 bpm Normal (applies to 81 bpm [place] [facility] - Rate non-numeric results) [facility] Body temperature 98.1 [degF] Normal (applies to 98.1 [degF ] [place] [facility] - non-numeric results) [facility] Respiratory rate 18 br/min Normal (applies to 18 br/min [place] [facility] - non-numeric results) [facility] Mean blood 85 mm[Hg] 85 mm[Hg] [place] [facility] - pressure [facility] Diastolic blood 72 mm[Hg] Normal (applies to 72 mm[Hg] [facility] - pressure non-numeric results) [facility] Systolic blood 111 mm[Hg] Normal (applies to 111 mm[Hg] [place] [facility] - pressure non-numeric results) [facility] Respiratory rate 17 br/min Normal (applies to 17 br/min [place] [facility] - non-numeric results) [facility] Peripheral Pulse 61 bpm Normal (applies to 61 bpm [place] [facility] - Rate non-numeric results) [facility] Body temperature 98.6 [degF] Normal (applies to 98.6 [degF ] [place] [facility] - non-numeric results) [facility] Mean blood 89 mm[Hg] 89 mm[Hg] [place] [facility] pressure [facility] Peripheral Pulse 71 bpm Normal (applies to 71 bpm [place] [facility] - Rate non-numeric results) [facility] Body temperature 97.9 [degF] Normal (applies to 97.9 [degF ] [facility] - non-numeric results) [facility] Heart rate Cardiac 60 bpm Normal (applies to 60 bpm [facility] - apex by by non-numeric results) [facility] Body mass index 30.93 m2 30.93 m2 [facility] - (BMI) [Ratio] [facility] Body surface area 2.35 2.35 [facility]asured [facility] Body height 186 cm 186 cm [facility] Heart rate Cardiac 68 bpm Normal (applies to 68 bpm [facility] - apex by by non-numeric results) [facility] ter Body temperature - 97.7 [degF] 97.7 [degF] [facility] Temporal artery [facility] Body height 186.000 cm 186.000 cm [facility] Body weight 107.000 kg 107.000 kg [facility] an - Measured [facility] Body temperature - 97.5 [degF] 97.5 [degF] [facility] Body temperature - 97.8 [degF] 97.8 [degF] [facility] artery [facility] Body height 186.000 cm 186.000 cm [facility] Body weight 132.000 kg 132.000 kg [facility] an - Measured [facility] Body surface area 2.61 2.61 [facility] Body weight 132 kg 132 kg [facility] an - Measured [facility] Body height 186 cm 186 cm [facility] Diastolic Blood 63 mm[Hg] Normal (applies to 63 mm[Hg] N [facility] - Pressure non-numeric results) [facility] Systolic Blood 142 mm[Hg] Above high normal 142 mm[Hg] [facility] - Pressure [facility] Weight Dosing 118.000 kg 118.000 kg [facility] Height/Length 188.000 cm 188.000 cm [facility] - Dosing [facility] Temperature 97.2 [degF] 97.2 [degF] [facility] - Temporal Artery [facility] Diastolic Blood 63 mm[Hg] Normal (applies to 63 mm[Hg] N [facility] - Pressure non-numeric results) [facility] Systolic Blood 142 mm[Hg] Above high normal 142 mm[Hg] [facility] - Pressure [facility] Peripheral Pulse 79 bpm Normal (applies to 79 bpm [facility] - Rate non-numeric results) [facility] BSA Measured 2.48 2.48 [facility] r Mean Arterial 89 mm[Hg] 89 mm[Hg] [facility] - Pressure, [facility] Respiratory Rate 16 br/min Normal (applies to 16 br/min [facility] - non-numeric results) [facility] Height/Length 188 cm 188 cm [facility] - Measured [facility] Weight Measured 118 kg 118 kg [facility] Patient Treatment Plan of Care Planned Activity Planned Date Details Description Data Source (s) Aspirin 81 MG Delayed 07/08/2019 [facility] - Release Oral Tablet 08:20:00 AM EDT [facility] 24 HR Isosorbide 07/08/2019 [facility] - Mononitrate 60 MG 08:19:00 AM EDT [facility] Extended Release Oral Center Tablet 24 HR metoprolol 07/08/2019 [facility] - succinate 25 MG Extended 08:19:00 AM EDT [facility] Release Oral Tablet Center 12 HR ranolazine 500 MG 07/08/2019 [place] [facility] - Extended Release Oral 08:19:[address] [facility] Center atorvastatin 20 MG Oral 07/08/2019 [place] [facility] - Tablet 08:19:00 AM EDT [facility] 12 HR ranolazine 500 MG 06/11/2018 [place] [facility] - Extended Release Oral 04:46:56 AM EST [facility] nitroglycerin 06/11/2018 [facility] - (Nitrostat) 04:43:56 AM EST [facility] isosorbide mononitrate 05/23/2016 [place] [facility] - 03:08:04 PM EST [facility] Flexeril 05/23/2016 [place] [facility] - 03:07:56 PM EST [facility] oxyCODONE 05/23/2016 [facility] - 03:07:21 PM EST [facility] metoprolol 05/23/2016 [place] [facility] - 03:07:03 PM EST [facility] fentaNYL 05/23/2016 [facility] - 03:06:50 PM EST [facility] lisinopril 05/23/2016 [facility] - 03:06:30 PM EST [facility] amLODIPine 05/23/2016 [place] [facility] - 03:06:22 PM EST [facility] multivitamin (Multiple 12/31/2011 [place] [facility] - Vitamins oral tablet) 07:24:40 AM EDT [facility]
--- NOTE | 2020-01-31 15:54 | PDOC ---
History of Present Illness - General Chief Complaint: Pain, Acute Stated Complaint: left ear pain Time Seen by Provider: 01/31/20 15:34 History Source: Patient Exam Limitations: No Limitations - History of Present Illness Initial Comments: 01/31/20 15:49 CHIEF COMPLAINT: Right ear pain today HISTORY OF PRESENT ILLNESS: 49-year-old man with a history of hypertension, CAD with stents, presents complaining of right ear congestion and discomfort. He states he occasionally gets ear congestion and discomfort, typically resolves with Zithromax and eardrops. He denies fever or chills. He denies sore throat. The only symptoms are congestion in the right ear. REVIEW OF SYSTEMS: No fever or chills No headache No nasal discharge Positive right ear congestion and discomfort No sore throat No neck pain No cough No chest pain No shortness of breath Positive history of asthma but no active symptoms at this time No nausea, vomiting or diarrhea No leg swelling or pain No skin rash Is this a multiple visit Asthma Patient?: No Past History - Medical History Allergies/Adverse Reactions: Allergies Allergy/AdvReac Type Severity Reaction Status Date / Time Penicillins Allergy Verified 12/24/19 22:38 Home Medications: Ambulatory Orders FENTANYL 75mcg PATCH [DURAGESIC 75mcg PATCH -] 1 patch TD Q72H patch.td72 MDD 75mcg 05/27/17 Albuterol Sulfate Inhaler - [Ventolin HFA Inhaler -] 1 - 2 inh PO Q4H #1 inhaler 05/23/19 Oxycodone HCl [Oxycontin] 60 mg PO Q6H 05/23/19 Azithromycin 250 mg PO DAILY #6 tablet 01/31/20 Neomycin/Polymyxn/Hc [Cortisporin Otic Solution -] 3 drop AD QID PRN 7 Days #1 bottle 01/31/20 Cancer: No Cardiac Disorders: Yes ([place] 2008; s/p cath) COPD: No DVT: No HTN: Yes Hypercholesterolemia: Yes Lung CA: No - Surgical History Abdominal Surgery: (SPLENECTOMY; RIGHT KIDNEY REMOVED) Appendectomy: Yes Cardiac Surgery: Yes (cardiac cath no stents) Orthopedic Surgery: Yes (spinal sx x10) - Immunization History Immunization Up to Date: Yes - Psycho-Social/Smoking History Smoking Status: Yes Smoking History: Current some day smoker Years of Tobacco Use: 15 Have you smoked in the past 12 months: Yes Number of Cigarettes Smoked Daily: 10 If you are a former smoker, when did you quit?: 2 [place] Cigars Per Day: 0 Information on smoking cessation initiated: Yes 'Breaking Loose' booklet given: 08/17/17 - Substance Abuse Hx (Audit-C & DAST Scrn) How often the patient has a drink containing alcohol: Never Score: In Men: 4 or > Positive; In Women: 3 or > Positive: 0 Screen Result (Pos requires Nsg. Audit-10AR): Negative In the last yr the pt used illegal drug/Rx for NonMed reason: No Score: Yes response is considered Positive: 0 Screen Result (Positive result requires Nsg. DAST-10): Negative *Physical Exam - Vital Signs Last Vital Signs Temp Pulse Resp BP Pulse Ox 98.9 F 77 18 122/64 100 01/31/20 15:29 01/31/20 15:29 01/31/20 15:29 01/31/20 15:29 01/31/20 15:29 - Physical Exam 01/31/20 15:52 GENERAL: The patient is awake, alert, and fully oriented, in no acute distress. HEAD: Normal with no signs of trauma. EYES: Pupils equal, round and reactive to light, extraocular movements intact, sclera anicteric, conjunctiva clear. ENT: Ears with clear canals, no erythema or bulging of the tympanic membranes, nares patent, oropharynx clear without exudates. Moist mucous membranes. NECK: Normal range of motion, supple without lymphadenopathy, JVD, or masses. LUNGS: Breath sounds equal, clear to auscultation bilaterally. No wheezes, and no crackles. HEART: Regular rate and rhythm, normal S1 and S2 without murmur, rub or gallop. ABDOMEN: Soft, nontender, normoactive bowel sounds. No guarding, no rebound. No masses. EXTREMITIES: Normal range of motion, no edema. No clubbing or cyanosis. No cords, erythema, or tenderness. NEUROLOGICAL: Cranial nerves II through XII grossly intact. Normal speech, normal gait. PSYCH: Normal mood, normal affect. SKIN: Warm, Dry, normal turgor, no rashes or lesions noted. Medical Decision Making - Medical Decision Making 01/31/20 15:52 49-year-old man with a history of hypertension and [place] presents complaining of right ear congestion. He is afebrile. On examination, there are no significant findings in the ear canals or of the tympanic membranes. Patient states that based on his history he knows he is going to develop an ear infection. I discussed this with him and advised he not take any antibiotics at this time. He agreed to follow that plan and to hold off on filling the prescription to wait until he needs it. Discharge - Discharge Information Problems reviewed: Yes Clinical Impression/Diagnosis: Discomfort of right ear Condition: Stable Disposition: HOME - Admission No - Additional Discharge Information Prescriptions: Azithromycin 250 mg PO DAILY #6 tablet Neomycin/Polymyxn/Hc [Cortisporin Otic Solution -] 3 drop AD QID PRN 7 Days #1 bottle PRN Reason: ear pain - Follow up/Referral Referrals: Christopher Alvarez MD [Staff Physician] - - Patient Discharge Instructions Additional Instructions: Today you were evaluated for right ear discomfort. The examination shows no redness or swelling, no serious infection. Based on your prior history, you were prescribed eardrops and azithromycin antibiotic. You are advised to hold off on filling these prescriptions to wait to see if a real infection develops. If you develop fever, increasing ear pain, then you should fill the prescriptions and take them. Otherwise just take Tylenol or Advil as needed for the discomfort. Follow-up with your primary care physician. Return to the emergency department as needed for progressive symptoms. - Post Discharge Activity
[2020-01-31 18:21] VITALS: BP 122/64; PULSE 77; TEMP 98.9; BMI 65.0
== END 2020-01-31 16:00 | disposition home or self-care (01) ==
LOC: FER 15:28
DX: H92.01 Otalgia, right ear (principal)
CPT/HCPCS: 99283-25

== ENCOUNTER 2020-02-05 15:29 | Emergency (ER) | payer OTHER ==
--- NOTE | 2020-02-05 15:35 | PDOC ---
History of Present Illness - General Chief Complaint: Ear Problem Stated Complaint: EAR ACHE AND SINUS CONGESTION Time Seen by Provider: 02/05/20 15:35 History Source: Patient Exam Limitations: No Limitations - History of Present Illness Initial Comments: 02/05/20 16:47 49M with PMH of CAD s/p multiple stents and smoking presents to the ED with left ear ache with sinus congestion. He was just seen one week prior for the same complaint, and completed outpatient azithromycin but lost his ear drops after only using them for 2 days. He reported some improvement for a few days but gradual return of symptoms. He reports sinus congestion with rhinorrhea, dry cough. Denies fever, sore throat, hearing loss, ear discharge, vertigo. PMH: as in HPI Allergies: PCN Tob/Etoh/Rec drugs: smoking ROS GENERAL/CONSTITUTIONAL: No fever or chills. No weakness. HEENT: No change in vision. +L ear pain. No sore throat. CARDIOVASCULAR: No chest pain or shortness of breath RESPIRATORY: No cough, wheezing, or hemoptysis. GASTROINTESTINAL: No nausea, vomiting, diarrhea or constipation. GENITOURINARY: No dysuria, frequency, or change in urination. MUSCULOSKELETAL: No joint or muscle swelling or pain. No neck or back pain. SKIN: No rash NEUROLOGIC: No headache, vertigo, loss of consciousness, or change in strength/sensation. ENDOCRINE: No increased thirst. No abnormal weight change HEMATOLOGIC/LYMPHATIC: No anemia, easy bleeding, or history of blood clots. ALLERGIC/IMMUNOLOGIC: No hives or skin allergy. PE GENERAL: AOx3; no apparent distress HEAD: No signs of trauma, NC/AT EYES: PERRLA, EOMI, sclera anicteric, conjunctiva clear ENT: Auricles normal inspection, hearing grossly normal, nares patent, moist mucosa, oropharynx clear without exudates. left external ear canal erythematous, opaque TM NECK: Normal ROM, supple, no LAD, JVD, or masses HEART: RRR, normal S1/S2, no murmurs, rubs, or gallops. Peripheral pulses 2+ and equal bilaterally. LUNGS: No distress, speaks full sentences, CTA bilaterally ABDOMEN: Soft, nontender. No guarding, no rebound. No masses EXTREMITIES: Normal inspection, Normal range of motion, no edema. NEUROLOGICAL: CNII-XII intact. Normal speech. No focal sensorimotor deficits SKIN: Warm, Dry, normal turgor. No rashes or lesions noted Assessment and Plan 1. discharge with same medications from last discharge Bill Manrique, PGY1 Emergency Medicine Past History - Medical History Allergies/Adverse Reactions: Allergies Allergy/AdvReac Type Severity Reaction Status Date / Time Penicillins Allergy Intermediate Swelling Verified 02/05/20 15:44 Home Medications: Ambulatory Orders FENTANYL 75mcg PATCH [DURAGESIC 75mcg PATCH -] 1 patch TD Q72H patch.td72 MDD 75mcg 05/27/17 Oxycodone HCl [Oxycontin] 630 mg PO Q4HWA 05/23/19 Azithromycin 250 mg PO ONCE 6 Days #6 tablet 02/05/20 Cyclobenzaprine HCl [Flexeril -] 10 mg PO DAILY 02/05/20 Neomycin/Polymyxin B/Hydrocort [Ktmmfnqz-Sdiooktgw-Az Ear Soln] 10 ml OT QID 7 Days #1 solution 02/05/20 Cancer: No Cardiac Disorders: Yes ([place] 2008; s/p cath) COPD: No DVT: No HTN: Yes Hypercholesterolemia: Yes Lung CA: No - Surgical History Abdominal Surgery: (SPLENECTOMY; RIGHT KIDNEY REMOVED) Appendectomy: Yes Cardiac Surgery: Yes (cardiac cath no stents) Orthopedic Surgery: Yes (spinal sx x10) - Immunization History Immunization Up to Date: Yes - Psycho-Social/Smoking History Smoking Status: Yes Smoking History: Current every day smoker Years of Tobacco Use: 15 Have you smoked in the past 12 months: Yes Number of Cigarettes Smoked Daily: 6 If you are a former smoker, when did you quit?: 2 MO Cigars Per Day: 0 'Breaking Loose' booklet given: 08/17/17 Medical Decision Making - Medical Decision Making 02/05/20 16:52 49M p/w ear ache and sinus congestion. On exam, left external ear canal erythematous, opaque TM -> otitis media -> discharge with azithromycin + neomycin/polymyxin ear dops. Discharge - Discharge Information Problems reviewed: Yes Clinical Impression/Diagnosis: Ear infection, Sinusitis, Otitis externa Condition: Stable Disposition: HOME - Admission No - Additional Discharge Information Prescriptions: Azithromycin 250 mg PO ONCE 6 Days #6 tablet Neomycin/Polymyxin B/Hydrocort [Wsokigxn-Cnhvoaypt-Cb Ear Soln] 10 ml OT QID 7 Days #1 solution - Follow up/Referral Referrals: [facility] [place] [Provider Group] [facility] [Provider Group] - Patient Discharge Instructions Patient Printed Discharge Instructions: DI for Sinusitis, DI for Otitis Externa, DI for Middle Ear Infection-Adult Additional Instructions: You were seen in the emergency department for ear infection. You were sent home with a prescription for azithromycin and neomycin/polymyxn ear drops. Please follow up with your primary care physician and or ENT regarding your visit to the emergency department. If you experience profound fever, hearing loss, or ear pain please return to the emergency department or call 911. - Post Discharge Activity
[2020-02-05 15:54] VITALS: BP 115/73; PULSE 63; TEMP 99.3; BMI 30.2
--- OUTSIDE RECORDS SUMMARY | 2020-02-05 15:59 | XMS ---
:1970 Author Organization [facility] Care Team Providers Name Role Phone JJ MORGAN JR, MD Unavailable Unavailable Oliver MORGAN JR, MD Unavailable Unavailable Oliver MORGAN JR, MD Unavailable Unavailable MD Bob D Unavailable Unavailable MD Bob D Unavailable Unavailable Oliver MORGAN JR, MD Unavailable Unavailable MD Bob D Unavailable Unavailable MD Bob D Unavailable MD Bob D Unavailable MD Bob D Unavailable Oliver MORGAN JR, MD Unavailable Unavailable MD Jesus Unavailable MD Jesus Unavailable MD Jesus Unavailable MD Jesus Unavailable MD Jesus Unavailable MD Jesus Unavailable MD Jesus Unavailable MD TIM Unavailable Unavailable MD TIM Unavailable Unavailable Oliver MORGAN JR, MD Unavailable Unavailable MD Bob D Unavailable Unavailable Dolores Unavailable Unavailable Dolores Unavailable Unavailable Dolores Unavailable Unavailable Dolores Unavailable Unavailable NONE Unavailable Unavailable MD Bob D Unavailable Unavailable Oliver MORGAN JR, MD Unavailable Unavailable [facility] Unavailable Unavailable MD Bob D Unavailable Unavailable Re-disclosure Warning The records that [...] is protected by Article 27-F of the [facility] Public Health law. If you continue you may haveaccess to information: Regarding HIV / AIDS; Provided by facilities licensed or operated by the [facility] Office of Mental Health; or Provided by the [facility] Office for People With Developmental Disabilities. If such information is present, then the following [facility] mandated warning applies: This information has been [...] law may result in a fine or fdc sentence or both. A general authorization for the release of medical or other information is NOT sufficient authorization for further disclosure. Allergies and Adverse Reactions Type Description Substance Reaction Status Data Source(s ) D penicillins penicillins tongue swelling [facility] r 1 PENICILLIN PENICILLIN NEXTGEN ([facility] - [facility] ) Encounters Encounter Providers Location Date Indications Data Source(s ) Inpatient Attender: Juan J KIDD XR-3S 07/05/2019 CHEST PAIN [facility] dahlia Lee MDAttender: 07:49:34 AM [facility] Jj Careyttender: EST - [facility] JJ MORGAN JR 07/08/2019 MDAttender: JJ 09:10:00 AM DOLORES GIORDANO MDAttender: EDT JJ MORGAN JR MDAttender: JJ MORGAN JR MDAttender: JJ MORGAN JR MDAttender: JJ MORGAN JR, MDAttender: JJ MORGAN JR MDAdmitter: Juan J Lee MDReferrer: NONE NONEConsultant: TAMIKA DUMONT MDConsultant: MD Elvis RojasConsultant: MD Elvis RojasConsultant: MD Elvis RojasConsultant: MD Elvis RojasConsultant: MD Elvis RojasConsultant: MD Elvis RojasConsultant: MD Elvis Rojas CHEST PAIN Patient discharged. Inpatient Attender: Juan J [place] 07/05/2019 [place] [facility] 07:49:34 [facility] [place] [facility]T Outpatient Attender: [id number] 06/17/2019 [facility] ([facility] 01:53:44 PM EST [facility] [place] ition) Patient admitted. Medications Medication Brand Start Product Dose Route Administrative Pharmacy St atus Indications Reaction Description Data Name Date Form Instructions Instructions Source(s) Aspirin 81 aspiri 07/07/ Enteric 81.0 Oral [place] MG Delayed n 81 2020 Coated mg [facility] maynor Release mg 08:20: Tablet an - Oral Tablet oral 00 AM Mongo aspirin 81 enteri EDT [facility] oral c Hospital enteric coated Center coated tablet tablet atorvastati atorva 07/07/ Tablet 20.0 Oral [place] n 20 MG statin 2020 mg [facility] Oral Tablet 20 mg 08:19: an - atorvastati oral 00 AM [facility] n 20 mg tablet [facility] oral tablet Hospital Center 24 HR isosor 07/07/ 60.0 Oral [place] Isosorbide bide 2020 mg [facility] i Mononitrate mononi 08:19: an - 60 MG trate 00 AM [place] Extended 60 mg EDT [place] Release oral Hospital Oral Tablet tablet Center isosorbide , mononitrate extend 60 mg oral ed tablet, releas extended e release 12 HR [place] 07/07/ Extended 500.0 Oral [place] ranolazine 500 mg 2020 Release mg Pres byteri 500 MG oral 08:19: Tablet an - Extended tablet 00 AM Mongo Release , EDT [place] Oral Tablet extend Hospit al [place] 500 ed Center mg oral releas tablet, e extended release 24 HR metopr 03/10/ Extended 25.0 Oral [place] metoprolol olol 2020 Release mg Presby vu succinate succin 08:19: Tablet an - 25 MG ate 25 00 AM [facility] Extended mg EDT [facility] oral Hospital Oral Tablet tablet Center metoprolol , succinate extend 25 mg oral ed tablet, releas extended e release Insurance Providers Payer name Policy type Policy ID Covered Covered democrat's Policy P tommy / Coverage democrat ID relationship to [place] Inf ormation type [place] [facility] [place] [id number] [place] [id number] O [facility] [id number] [facility] Medicaid [id number] 1 [id number] And Child Health Plus Medicaid E Medicaid [id number] F [facility] Medicaid Medicaid [id number] [facility] [id number] Problems, Conditions, and Diagnoses Code Display Name Description Problem Type Effective Dates Data Source(s) R07.89 Other chest Other chest pain Diagnosis 07/05/2019 [place] [facility] - pain 07:49:34 AM [facility] Surgeries/Procedures Procedure Description Date Indications Data Source(s) COLLECTION VENOUS BLOOD 07/07/2019 [place] [facility] - [facility]ENIP[facility]CTURE 04:00:00 AM EDT [facility] COLLECTION VENOUS BLOOD 07/06/2019 [place] [facility] - [facility]URE 07:53:25 AM EDT [facility] COLLECTION VENOUS BLOOD 07/05/2019 [place] [facility] - [facility]URE 06:42:00 PM [facility] COLLECTION VENOUS BLOOD 07/05/2019 [place] [facility] - [place]URE 06:42:00 PM [facility] COLLECTION VENOUS BLOOD 07/05/2019 [place] [facility] [place] [facility]URE 12:00:00 PM [facility] COLLECTION VENOUS BLOOD 07/05/2019 [place] [facility] [place] [facility] 12:00:00 PM [facility] COLLECTION VENOUS BLOOD 07/05/2019 [place] [facility] [place] [facility] 08:21:00 AM [facility] COLLECTION VENOUS BLOOD 07/05/2019 [place] [facility] [place]URE 08:21:00 AM [facility] COLLECTION VENOUS BLOOD 07/05/2019 [place] [facility] [place]IP[place]URE 08:21:00 AM [facility] COLLECTION VENOUS BLOOD 07/05/2019 [place] [facility] [place] 08:21:00 AM [facility] COLLECTION VENOUS BLOOD 07/05/2019 [place] [facility] [place] 08:04:00 AM [facility] COLLECTION VENOUS BLOOD 07/05/2019 [place] [facility] [place] 08:04:00 AM [facility] COLLECTION VENOUS BLOOD 07/05/2019 [place] [facility] [place] 08:04:00 AM [facility] COLLECTION VENOUS BLOOD 07/05/2019 [place] [facility] [place] 08:04:00 AM [facility] COLLECTION VENOUS BLOOD 07/05/2019 [place] [facility] [place] 07:53:25 AM [facility] COLLECTION VENOUS BLOOD 07/05/2019 [place] [facility] [place] [facility] 07:53:25 AM [facility] COLLECTION VENOUS BLOOD 07/05/2019 [place] [facility] [place] [facility] 07:53:25 AM [facility] Results ID Date Data Source [id number] 12/27/2019 02:34:00 PM EDT [facility] Name Value Range Interpretation Description Data Sup porting Code Source(s) Document(s ) 2018 Novel [facility] Coronavirus RNA Interpretation Unspecified Specimen Qualitative JONEL Probe Detection This lab was ordered by [facility] and reported by [facility]. ID Date Data Source [id number] 11/26/2019 12:00:00 AM EDT [facility] Name Value Range Interpretation Code Description Data Juana rce(s) Supporting Document(s ) 2019-nCoV [facility] RNA XXX JONEL+probe- Imp This lab was ordered by [facility] and reported by [employer] ID Date Data Source [id number] 08/25/2019 12:00:00 AM EDT [facility] Name Value Range Interpretation Code Description Data Juana rce(s) Supporting Document(s ) 2019-nCoV [facility] RNA XXX OJNEL+probe- Imp This lab was ordered by [facility] and reported by [employer]. ID Date Data Source [id number] 07/07/2019 09:55:00 AM EDT [facility] [id number] Hospital Center Name Value Range Interpretation Description Data Source(s ) Supporting Code Document(s ) RADRPT <table border="1" [facility] oniel width="95%"><colgr - [facility] lley oup><col Hospital Center width="25%"></col> <col width="25%"></col> <col width="25%"></col> <col width="25%"></col> </colgroup><tbody> <tr><td>Exam Date Time</td><td>Proce dure</td><td>Perfo rming Provider</td><td>S tatus</td></tr><tr ><td>07/07/19 10:15 AM</td><td>US Echocardiogram Complete</td><td>F UMO RCS, SEAN; </td><td>Auth (Verified)</td></t r></tbody></table> <paragraph>Notes:< /paragraph><paragr aph>(US Echocardiogram Complete) Reason For Exam: Chest Pain</paragraph><p aragraph><content> Report</content><b r/><content ID="[id number]">TRANSTHORACIC ECHOCARDIOGRAM:

INDICATION: Chest pain

Kayce ent [...] Technologist: GEREMIAS</content></p aragraph> ID Date Data Source [id number] 07/07/2019 08:04:58 AM EDT BRAIN [facility] [place] [id number] Hospital Center Name Value Range Interpretation Description Data Source(s ) Supporting Code Document(s ) RADRPT <table border="1" [facility] [place] oniel width="95%"><colg - [facility] keily roup><col Hospital Center width="25%"></col ><col width="25%"></col ><col width="25%"></col ><col width="25%"></col ></colgroup><tbod y><tr><td>Exam Date Time</td><td>Proc edure</td><td>Per forming Provider</td><td> Status</td></tr>< tr><td>07/07/19 8:25 AM</td><td>NM Stress/rest Spect Multi-2 day</td><td>BENCEASAR N ARRT KAMERONTCJOHAN Hand; </td><td>Auth (Verified)</td></ tr></tbody></tabl e><paragraph>Note s:</paragraph><pa ragraph>(NM Stress/rest Spect Multi-2 day) Reason For Exam: Chest Pain</paragraph>< paragraph><conten t>Report</content >
<content ID="[id number]">SINGLE-DAY LEXISCAN SESTAMIBI STRESS TEST:

IN DICATION: [...] 12:31 pm</content></par agraph> ID Date Data Source [id number] 07/07/2019 04:00:00 AM EDT [facility] [id number] Hospital Center Name Value Range Interpretation Code Description Data Juana rce(s) Supporting Document(s ) EGFR Non [facility] - AA [facility] EGFR AA [facility] ID Date Data Source [id number] 07/07/2019 04:00:00 AM EDT [facility] [id number] [facility] Name Value Range Interpretation Description Data Source(s ) Supporting Code Document(s ) Magnesium 2.0 mg/dL Normal [facility] results) Hospital Center ID Date Data Source [id number] 07/07/2019 04:00:00 AM EDT [facility] [id number] [facility] Name Value Range Interpretation Description Data Source(s ) Supporting Code Document(s ) Glucose Lvl 98 mg/dL Normal (applies [place] [facility] oniel to non-[facility] results) Hospital Center Creatinine 0.60 Below low normal [facility] mg/dL - [facility] BUN 14 mg/dL Normal (applies [place] [facility] n to [facility] results) Hospital Center Sodium Lvl 140 Normal (applies [place] [facility] an mmol/L to [facility] results) Hospital Center Chloride 102 Normal (applies [place] [facility] mmol/L to [facility] results) Hospital Center Potassium Lvl 4.4 Normal (applies [place] [facility] mmol/L to non-[facility] results) Hospital Center CO2 28 Normal (applies [place] [facility] mmol/L to [facility] results) Hospital Center AGPK 14.4 Normal (applies [place] [facility] n to non-[facility] results) Hospital Center Albumin Lvl 4.0 g/dL Normal (applies [place] [facility] oniel to non-[facility] results) Hospital Center Calcium Lvl 9.3 Normal (applies [place] [facility] oniel mg/dL to non-[facility] results) Hospital Center Total Protein 6.5 g/dL Normal (applies [place] [facility] to non-numeric - [facility] results) Hospital Center Alk Phos 59 Normal (applies [place] [facility] n unit/L to non-numeric [facility] results) Hospital Center AST 27 Normal (applies [place] [facility] unit/L to non-numeric - [facility] results) Hospital [facility] ALT 36 Normal (applies [place] [facility] n unit/L to non-numeric [facility] results) Hospital Center Bili Total 0.50 Normal (applies [place] [facility] an mg/dL to non-numeric [facility] results) Hospital Center ID Date Data Source [id number] 07/06/2019 07:53:25 AM EDT [facility] [id number] Hospital Center Name Value Range Interpretation Code Description Data Juana rce(s) Supporting Document(s ) EGFR AA [facility] EGFR Non [facility] - AA [facility] ID Date Data Source [id number] 07/06/2019 07:53:25 AM EDT [facility] [id number] Hospital Center Name Value Range Interpretation Description Data Source(s ) Supporting Code Document(s ) Neutro 65.9 % Normal (applies [place] [facility] Percent to non-numeric [facility] results) Hospital Center Lymph 21.7 % Normal (applies [place] [facility] Percent to non-numeric [facility] results) Hospital [facility] [place] Percent 8.9 % Normal (applies [place] [facility] annie to non-numeric [facility] results) Hospital Center Baso Percent 0.5 % Normal (applies [place] [facility] annie to non-numeric [facility] results) Hospital Center Eos Percent 3.0 % Normal (applies [place] [facility] oniel to non-numeric - [facility] results) [facility] [place] 0.6 Normal (applies [place] [facility] n Absolute x10(3)/mc to non-numeric - [facility] L results) Hospital Center Neutro 4.6 Normal (applies [place] [facility] n Absolute x10(3)/mc to non-numeric - [facility] [place] L results) Hospital Center Lymph 1.5 Normal (applies [place] [facility] n Absolute x10(3)/mc to non-numeric - [facility] L results) Hospital Center Baso 0.0 Normal (applies [place] [facility] [place] Absolute x10(3)/mc to non-numeric [facility] L results) Hospital Center Eos Absolute 0.2 Normal (applies [place] [facility] annie x10(3)/mc to non-numeric [facility] L results) Hospital Center ID Date Data Source [id number] 07/06/2019 07:53:25 AM EDT [facility] [id number] Hospital Center Name Value Range Interpretation Code Description Data Juana rce(s) Supporting Document(s ) TSH 2.932 Normal (applies to [place] [facility] annie - mIU/L non-numeric [facility] results) Hospital Center ID Date Data Source [id number] 07/06/2019 07:53:25 AM EDT [facility] [id number] Hospital Center Name Value Range Interpretation Description Data Source(s ) Supporting Code Document(s ) BUN 15 mg/dL Normal (applies [place] [facility] [place] to non-numeric [facility] results) Hospital Center Glucose Lvl 112 Above high normal [place] [facility] mg/dL - [facility] Sodium Lvl 140 Normal (applies [place] [facility] an mmol/L to non-[facility] results) Hospital Center Chloride 104 Normal (applies [place] [facility] mmol/L to non-[facility] results) Hospital Center Creatinine 0.65 Below low normal [place] [facility] oniel mg/dL - [facility] Potassium Lvl 3.9 Normal (applies [place] [facility] mmol/L to non-numeric [facility] results) Hospital Center Calcium Lvl 9.1 Normal (applies [place] [facility] oniel mg/dL to non-[facility] results) Hospital Center CO2 26 Normal (applies [place] [facility] n mmol/L to non-[facility] results) Hospital Center AGPK 13.9 Normal (applies [place] [facility] [place] to non-[facility] results) Hospital Center ID Date Data Source [id number] 07/06/2019 07:53:25 AM EDT [facility] [id number] Hospital Center Name Value Range Interpretation Description Data Source(s ) Supporting Code Document(s ) WBC 7.0 Normal (applies to [facility] x10(3)/[facility] L results) Hospital Center Hct 41.7 % Below low normal [facility] RBC 4.78 Normal (applies to [facility] x10(6)/[facility] L results) Hospital Center Hgb 14.3 g/dL Normal (applies to [facility] results) [facility] MCV 87.2 fL Normal (applies to [facility] results) [facility] MCH 29.8 pg Normal (applies to [facility] results) [facility] Platelet 127 Below low normal [facility] x10(3)/[facility] L [facility] RDW 14.2 % Normal (applies to [facility] results) Hospital Center MCHC 34.2 g/dL Normal (applies to [facility] results) [facility] MPV 10.1 fL Normal (applies to [facility] results) Hospital Center ID Date Data Source [id number] 07/06/2019 07:53:25 AM EDT [facility] [id number] Hospital Center Name Value Range Interpretation Description Data Source(s ) Supporting Code Document(s ) Trig 159 mg/dL Above high normal [facility] Chol 145 mg/dL Normal (applies to [facility] results) Hospital Center Risk 3.54 Normal (applies to [facility] Factor [facility] results) [facility] Lipo Kaylin Clear Normal (applies to [facility] (07/06/19 [facility] 7:53 AM) results) [facility] Direct HDL 41.0 Normal (applies to [facility] erian mg/dL [facility] results) [facility] LDL Calc 72.20 [facility] ID Date Data Source [id number] 07/06/2019 07:53:25 AM EDT [facility] [id number] [facility] Name Value Range Interpretation Code Description Data Juana rce(s) Supporting Document(s ) Hgb A1c 5.1 % [facility] ID Date Data Source [id number] 07/06/2019 06:24:00 AM EDT [facility] [id number] [facility] Name Value Range Interpretation Description Data Source(s ) Supporting Code Document(s ) RADRPT <table border="1" [facility] width="95%"><colgr - [facility] oup><col [facility] width="25%"></col> <col width="25%"></col> <col width="25%"></col> <col width="25%"></col> </colgroup><tbody> <tr><td>Exam Date Time</td><td>Proce dure</td><td>Perfo rming Provider</td><td>S tatus</td></tr><tr ><td>07/06/19 6:24 AM</td><td>XR Elbow 2 Views Left</td><td>[facility]; </td><td>Auth (Verified)</td></t r></tbody></table> <paragraph>Notes:< /paragraph><paragr aph>(XR Elbow 2 Views Left) Reason For Exam: Swelling</paragrap h><paragraph><cont ent>Report</conten t>
<content ID="[id number]">elbow series.

C linical History: Swelling.

2 [...] 11:07 am</content></para graph> ID Date Data Source [id number] 07/05/2019 06:42:00 PM EST [facility] [id number] [facility] Name Value Range Interpretation Description Data Source(s ) Supporting Code Document(s ) Troponin [facility] ID Date Data Source [id number] 07/05/2019 06:42:00 PM EST [facility] [id number] [facility] Name Value Range Interpretation Description Data Source(s ) Supporting Code Document(s ) Troponin Neg Normal (applies [facility] n Prelim (07/05/19 to non-[facility] 6:42 PM) results) Hospital Center ID Date Data Source [id number] 07/05/2019 12:00:00 PM EST [facility] [id number] [facility] Name Value Range Interpretation Description Data Source(s ) Supporting Code Document(s ) Troponin [facility] ID Date Data Source [id number] 07/05/2019 12:00:00 PM EST [facility] [id number] Hospital Center Name Value Range Interpretation Description Data Source(s ) Supporting Code Document(s ) Troponin Neg Normal (applies [place] [facility] Prelim (07/05/19 to non-numeric [facility] 12:00 PM) results) Hospital Center ID Date Data Source [id number] 07/05/2019 11:02:00 AM EST [facility] [id number] Hospital Center Name Value Range Interpretation Description Data Source(s ) Supporting Code Document(s ) RADRPT <table border="1" [place] [facility] oniel width="95%"><colg - [facility] keily roup><col Hospital Center width="25%"></col ><col width="25%"></col ><col width="25%"></col ><col width="25%"></col ></colgroup><tbod y><tr><td>Exam Date Time</td><td>Proc edure</td><td>Per forming Provider</td><td> Status</td></tr>< tr><td>07/05/19 11:22 AM</td><td>CT Pulmonary Embolism</td><td> SASKIA VALENTINO; </td><td>Auth (Verified)</td></ tr></tbody></tabl e><paragraph>Note s:</paragraph><pa ragraph>(CT Pulmonary Embolism) Reason For Exam: Other;Chest pain, PE suspected, low/intermediate prob, positive D-dimer</paragrap h><paragraph><con tent>Report</cont ent>
<content ID="[id number]">CTA of the chest with contrast. Coronal [...] 11:44 am</content></par agraph> ID Date Data Source [id number] 07/05/2019 08:27:24 AM EST [place] [facility] [id number] Hospital Center Name Value Range Interpretation Code Description Data Juana rce(s) Supporting Document(s ) RADRPT <table [place] [facility] border="1" - [facility] width="95%"><col Hospital Cent er group><col width="25%"></co l><col width="25%"></co l><col width="25%"></co l><col width="25%"></co l></colgroup><tb giovani><tr><td>Exam Date Time</td><td>Pro cedure</td><td>P erforming Provider</td><td >Status</td></tr ><tr><td>07/05/19 8:27 AM</td><td>XR Chest 1 View</td><td>LENORE ERA KELLY PELLETIER; </td><td>Auth (Verified)</td>< /tr></tbody></ta ble><paragraph>N otes:</paragraph ><paragraph>(XR Chest 1 View) Reason For Exam: Chest Pain</paragraph> <paragraph><cont ent>Report</cont ent>
<conten t ID="[id number]">AP chest.

CLINICAL HISTORY: Chest pain

AP of [...] 07.05.2019 9:17 am

Nelson scribed: 07.05.2019 9:19 am</content></pa ragraph> ID Date Data Source [id number] 07/05/2019 08:21:00 AM EST [facility] [id number] [facility] Name Value Range Interpretation Description Data Source(s ) Supporting Code Document(s ) Ddime 750.0 Above high normal [facility] oniel Quant ng/mL DDU [facility] ID Date Data Source [id number] 07/05/2019 08:04:00 AM EST [facility] [id number] [facility] Name Value Range Interpretation Description Data Source(s ) Supporting Code Document(s ) Troponin [facility] Result [facility] ID Date Data Source [id number] 07/05/2019 08:04:00 AM EST [facility] [id number] [facility] Name Value Range Interpretation Code Description Data Juana rce(s) Supporting Document(s ) EGFR AA [facility] EGFR Non [facility] ID Date Data Source [id number] 07/05/2019 08:04:00 AM EST [facility] [id number] [facility] Name Value Range Interpretation Description Data Source(s ) Supporting Code Document(s ) Neutro 67.1 % Normal (applies [facility] n Percent to non-numeric - [place] results) [facility] Lymph 20.8 % Normal (applies [place] [facility] [place] Percent to non-numeric - [place] results) [facility] [place] Percent 9.1 % Normal (applies [place] [facility] to non-numeric - [place] results) [facility] Eos Percent 2.4 % Normal (applies [place] [facility] to non-numeric - [place] results) [facility] Neutro 4.4 Normal (applies [place] [facility] [place] Absolute x10(3)/mc to non-numeric - [place] L results) [facility] [place] 0.6 Normal (applies [place] [facility] [place] Absolute x10(3)/mc to non-numeric - [place] L results) [facility] Lymph 1.4 Normal (applies [place] [facility] [place] Absolute x10(3)/mc to non-numeric - [place] L results) [facility] Baso Percent 0.6 % Normal (applies [place] [facility] to non-numeric - [place] results) [facility] Eos Absolute 0.2 Normal (applies [place] [facility] x10(3)/mc to non-numeric - [place] L results) [facility] Baso 0.0 Normal (applies [place] [facility] [place] Absolute x10(3)/mc to non-numeric - [place] L results) Hospital Center ID Date Data Source [id number] 07/05/2019 08:04:00 AM EST [facility] [id number] [facility] Name Value Range Interpretation Description Data Source(s ) Supporting Code Document(s ) Troponin Neg Normal (applies [place] [facility] [place] Prelim (07/05/19 to non-numeric - [place] 8:04 AM) results) Hospital Center ID Date Data Source [id number] 07/05/2019 08:04:00 AM EST [place] [facility] [id number] [facility] Name Value Range Interpretation Code Description Data Ju[place] rce(s) Supporting Document(s ) INR 1.0 Normal (applies to [place] [facility] - non-numeric results) [facility] PT 12.0 s Normal (applies to [place] [facility] - non-numeric results) [facility] ID Date Data Source [id number] 07/05/2019 08:04:00 AM EST [facility] [id number] [facility] Name Value Range Interpretation Description Data Source(s ) Supporting Code Document(s ) Magnesium 2.2 mg/dL Normal (applies to [place] [facility] non-[facility] results) Hospital Center ID Date Data Source [id number] 07/05/2019 08:04:00 AM EST [facility] [id number] [facility] Name Value Range Interpretation Description Data Source(s ) Supporting Code Document(s ) Glucose Lvl 125 Above high normal [place] [facility] mg/dL - [facility] Sodium Lvl 141 Normal (applies [place] [facility] mmol/L to non-[facility] results) [facility] BUN 14 mg/dL Normal (applies [place] [facility] to non-[facility] results) [facility] Potassium Lvl 4.0 Normal (applies [place] [facility] mmol/L to non-[facility] results) [facility] Creatinine 0.73 Normal (applies [place] [facility] mg/dL to non-[facility] results) [facility] AGPK 15.0 Normal (applies [place] [facility] to non-[facility] results) [facility] Chloride 103 Normal (applies [place] [facility] [place] mmol/L to non-[facility] results) [facility] CO2 27 Normal (applies [place] [facility] mmol/L to non-[facility] results) [facility] Calcium Lvl 9.4 Normal (applies [place] [facility] mg/dL to non-[facility] results) [facility] Total Protein 7.2 g/dL Normal (applies [place] [facility] to non-[facility] results) [facility] Albumin Lvl 4.6 g/dL Normal (applies [place] [facility] to non-[facility] results) [facility] AST 27 Normal (applies [place] [facility] unit/L to non-[facility] results) [facility] ALT 42 Normal (applies [place] [facility] unit/L to [facility] results) [facility] Bili Total 0.40 Normal ([facility] results) [facility] Alk Phos 60 Normal ([facility]/L to [facility] results) Hospital Center ID Date Data Source [id number] 07/05/2019 08:04:00 AM EST [facility] [id number] [facility] Name Value Range Interpretation Description Data Source(s ) Supporting Code Document(s ) WBC 6.5 Normal (applies to [facility] x10(3)/[facility] L results) [facility] RBC 5.26 Normal ([facility] x[facility] L results) [facility] Hgb 15.8 g/dL Normal (applies to [facility] results) [facility] Hct 45.5 % Normal (applies to [facility] results) [facility] MCV 86.5 fL Normal (applies to [facility] results) [facility] MCH 30.0 pg Normal (applies to [facility] results) [facility] MCHC 34.7 g/dL Normal (applies to [facility] results) [facility] RDW 13.8 % Normal (applies to [facility] results) [facility] Platelet 142 Normal (applies to [facility] x10(3)/[facility] L results) [facility] MPV 10.4 fL Above high normal [facility] Procedure Social History Code Duration Value Status Description Data Source(s ) Tobacco smoking 07/05/2019 Smokes completed Smokes tobacco [place] [facility] - consumption 02:24:17 PM tobacco daily (finding) [facility] unknown (finding) EST daily [facility] (finding) Vital Signs ID Date Data Source UNK Name Value Range Interpretation Code Description Data Source(s) Diastolic blood 68 mm[Hg] Normal (applies to 68 mm[Hg] [place] [facility] - pressure non-numeric results) [facility] Systolic blood 118 mm[Hg] Normal (applies to 118 mm[Hg] [place] [facility] - pressure non-numeric results) [facility] Mean blood 85 mm[Hg] 85 mm[Hg] [place] [facility] - [facility] Diastolic blood 68 mm[Hg] Normal (applies to 68 mm[Hg] [place] [facility] - pressure non-numeric results) [facility] Systolic blood 118 mm[Hg] Normal (applies to 118 mm[Hg] [place] [facility] - pressure non-numeric results) [facility] Respiratory rate 18 br/min Normal (applies to 18 br/min [place] [facility] - non-numeric results) [facility] Peripheral Pulse 81 bpm Normal (applies to 81 bpm [place] [facility] - Rate non-numeric results) [facility] Body temperature 98.1 [degF] Normal (applies to 98.1 [degF ] [place] [facility] - non-numeric results) [facility] Respiratory rate 18 br/min Normal (applies to 18 br/min [place] [facility] - non-numeric results) [facility] Mean blood 85 mm[Hg] 85 mm[Hg] [place] [facility] - pressure [facility] Diastolic blood 72 mm[Hg] Normal (applies to 72 mm[Hg] [place] [facility] - pressure non-numeric results) [facility] Systolic blood 111 mm[Hg] Normal (applies to 111 mm[Hg] [place] [facility] - pressure non-numeric results) [facility] Respiratory rate 17 br/min Normal (applies to 17 br/min [place] [facility] - non-numeric results) [facility] Peripheral Pulse 61 bpm Normal (applies to 61 bpm [place] [facility] - Rate non-numeric results) [facility] Body temperature 98.6 [degF] Normal (applies to 98.6 [degF ] [place] [facility] - non-numeric results) [facility] Mean blood 89 mm[Hg] 89 mm[Hg] [facility] n - pressure [facility] Peripheral Pulse 71 bpm Normal (applies to 71 bpm [place] [facility] - Rate non-numeric results) [facility] Body temperature 97.9 [degF] Normal (applies to 97.9 [degF ] [place] [facility] - non-numeric results) [facility] Heart rate Cardiac 60 bpm Normal (applies to 60 bpm [place] [facility] - apex by by non-numeric results) [facility] [facility] Body mass index 30.93 m2 30.93 m2 [facility] - (BMI) [Ratio] [facility] Body surface area 2.35 2.35 [facility] r Body weight 107 kg 107 kg [facility] an - Measured [facility] Body height 186 cm 186 cm [facility] Heart rate Cardiac 68 bpm Normal (applies to 68 bpm [place] [facility] apex by by non-numeric results) [facility] [address] [facility] Body temperature - 97.7 [degF] 97.7 [degF] [facility] - Temporal artery [facility] Body height 186.000 cm 186.000 cm [facility] Body weight 107.000 kg 107.000 kg [facility] an - Measured [facility] Body temperature - 97.5 [degF] 97.5 [degF] [facility] Body temperature - 97.8 [degF] 97.8 [degF] [facility] Body height 186.000 cm 186.000 cm [facility] r Body weight 132.000 kg 132.000 kg [facility] an - Measured [facility] Body surface area 2.[address] [facility] Body weight 132 kg 132 kg [facility] an - Measured [facility] Body height 186 cm 186 cm [facility] - [facility] Patient Treatment Plan of Care Planned Activity Planned Date Details Description Data Source (s) Aspirin 81 MG Delayed 07/08/2019 [place] [facility] - Release Oral Tablet 08:20:00 AM EDT [facility] 24 HR Isosorbide 07/08/2019 [place] [facility] - Mononitrate 60 MG 08:19:00 AM EDT [facility] Extended Release Oral Center Tablet 24 HR metoprolol 07/08/2019 [place] [facility] - succinate 25 MG Extended 08:19:00 AM EDT [facility] Release Oral Tablet Center 12 HR ranolazine 500 MG 07/08/2019 [place] [facility] - Extended Release Oral 08:19:00 AM EDT [facility] Tablet Center atorvastatin 20 MG Oral 07/08/2019 [place] [facility] - Tablet 08:19:00 AM EDT [facility]
--- NOTE | 2020-02-05 16:16 | PDOC ---
Attending Attestation - Resident Resident Name: Bill Manrique - ED Attending Attestation I have performed the following: I have examined & evaluated the patient, The case was reviewed & discussed with the resident, I agree w/resident's findings & plan - HPI HPI: 02/05/20 18:20 49M with PMH of CAD s/p multiple stents and smoking presents to the ED with left ear ache with sinus congestion. He was just seen one week prior for the same complaint, and completed outpatient azithromycin but lost his ear drops after only using them for 2 days. He reported some improvement for a few days but gradual return of symptoms. He reports sinus congestion with rhinorrhea, dry cough. Denies fever, sore throat, hearing loss, ear discharge, vertigo. - Physicial Exam PE: 02/05/20 16:14 agree with resident PE NAD, well appearing, normal phonation, oropharynx clear. EOMI, PERRL no respiratory distress DIALLO x4, ambulatory, gait stable, speech clear. WWP. 02/05/20 16:17 02/05/20 18:20 - Medical Decision Making 02/05/20 16:14 Vital Signs Temp Pulse Resp BP Pulse Ox 99.3 F 63 16 115/73 96 02/05/20 15:32 02/05/20 15:32 02/05/20 15:32 02/05/20 15:32 02/05/20 15:32 vitals reviewed, wnl no fever nontoxic HD appropriate pt with likely sinusitis, and OE. lost his ear drops will rx azithromycin course x 5 days, as pt states usually he requires 2 weeks of abx. as well as polymyxin-tmp ear drops to finish his course DC stable condition, return precautions made aware of impression and plan, agreeable. 02/05/20 18:20 Discharge - Discharge Information Problems reviewed: Yes Clinical Impression/Diagnosis: Ear infection, Sinusitis, Otitis externa Condition: Stable Disposition: HOME - Admission No - Additional Discharge Information Prescriptions: Azithromycin 250 mg PO ONCE 6 Days #6 tablet Neomycin/Polymyxin B/Hydrocort [Nmzrxyfs-Nbbhsypno-Ux Ear Soln] 10 ml OT QID 7 Days #1 solution - Follow up/Referral Referrals: [facility] [place] [Provider Group] [facility] [Provider Group] - Patient Discharge Instructions Patient Printed Discharge Instructions: DI for Sinusitis, DI for Otitis Externa, DI for Middle Ear Infection-Adult Additional Instructions: You were seen in the emergency department for ear infection. You were sent home with a prescription for azithromycin and neomycin/polymyxn ear drops. Please follow up with your primary care physician and or ENT regarding your visit to the emergency department. If you experience profound fever, hearing loss, or ear pain please return to the emergency department or call 911. - Post Discharge Activity
== END 2020-02-05 16:29 | disposition home or self-care (01) ==
LOC: FER 15:29
DX: H66.92 Otitis media, unspecified, left ear (principal); J01.90 Acute sinusitis, unspecified
CPT/HCPCS: 99282-25

== ENCOUNTER 2020-06-04 23:34 | Emergency (ER) | payer OTHER ==
[2020-06-05 00:19] VITALS: BP 116/70; PULSE 74; TEMP 99.2; BMI 30.2
== END 2020-06-05 00:40 | disposition home or self-care (01) ==
LOC: FER 23:34
DX: J01.90 Acute sinusitis, unspecified (principal)
CPT/HCPCS: 99283-25

== ENCOUNTER 2020-11-01 22:14 | Emergency (ER) | payer OTHER ==
[2020-11-01 22:25] VITALS: BP 132/66; PULSE 70; TEMP 98.2; BMI 33.3
== END 2020-11-01 22:32 | disposition home or self-care (01) ==
LOC: FER 22:14
DX: G43.909 Migraine, unspecified, not intractable, without status migrainosus (principal)
CPT/HCPCS: 99283-25

== ENCOUNTER 2020-11-20 18:56 | Emergency (ER) | payer OTHER ==
[2020-11-20 19:20] VITALS: BP 116/73; PULSE 67; TEMP 99.3; BMI 33.4
== END 2020-11-20 19:45 | disposition home or self-care (01) ==
LOC: FER 18:56
DX: G43.909 Migraine, unspecified, not intractable, without status migrainosus (principal)
CPT/HCPCS: 99283-25

== ENCOUNTER 2021-05-24 01:27 | Emergency (ER) | payer OTHER ==
[2021-05-24 01:33] VITALS: BP 139/70; PULSE 75; TEMP 99; BMI 32.7
== END 2021-05-24 01:41 | disposition home or self-care (01) ==
LOC: FER 01:27
DX: Z86.69 Personal history of other diseases of the nervous system and sense organs (principal); Z76.0 Encounter for issue of repeat prescription
CPT/HCPCS: 99283-25

== ENCOUNTER 2021-07-15 23:09 | Emergency (ER) | payer OTHER ==
[2021-07-15] MEDS ORDERED: TETRACAINE 0.5% OPHTH SOLN 2 ML BOTTLE ONE (23:19)
[2021-07-15] MEDS ORDERED: FLUORESCEIN NA 1 EA STRIP ONE (23:19)
[2021-07-15 23:23] VITALS: BP 136/71; PULSE 93; TEMP 99.2; BMI 32.7
[2021-07-16] MEDS ORDERED: TETRACAINE 0.5% OPHTH SOLN 2 ML BOTTLE ONE (00:22)
[2021-07-16] MEDS ORDERED: ERYTHROMYCIN 0.5% OPHTHALMIC OINTMENT 3.5 GM TUBE ONE (00:34)
== END 2021-07-16 00:47 | disposition home or self-care (01) ==
LOC: FER 23:09
DX: H16.213 Exposure keratoconjunctivitis, bilateral (principal)
CPT/HCPCS: 99283-25

== ENCOUNTER 2022-01-21 20:56 | Emergency (ER) | payer OTHER ==
[2022-01-21 21:09] VITALS: BP 121/70; PULSE 73; RESP 16; TEMP 99.2; BMI 32.8
[2022-01-21] MEDS ORDERED: AZITHROMYCIN 250 MG TABLET PO ONE (21:15)
[2022-01-21] MEDS ORDERED: AZITHROMYCIN 250 MG TABLET ONE ×2 (21:17→21:20)
== END 2022-01-21 21:21 | disposition home or self-care (01) ==
LOC: FER 20:56
DX: G43.909 Migraine, unspecified, not intractable, without status migrainosus (principal); J01.91 Acute recurrent sinusitis, unspecified
CPT/HCPCS: 99283-25

== ENCOUNTER 2022-08-12 20:13 | Emergency (ER) | payer OTHER ==
[2022-08-12 20:21] VITALS: BP 116/65; PULSE 78; RESP 16; TEMP 98.1; BMI 32.8
== END 2022-08-12 20:49 | disposition home or self-care (01) ==
LOC: FER 20:13
DX: R09.81 Nasal congestion (principal); B34.9 Viral infection, unspecified
CPT/HCPCS: 99283-25

== ENCOUNTER 2022-09-01 22:07 | Emergency (ER) | payer OTHER ==
[2022-09-01 22:22] VITALS: BP 117/62; PULSE 67; RESP 16; TEMP 98.8; BMI 32.8
== END 2022-09-01 22:59 | disposition home or self-care (01) ==
LOC: FER 22:07
DX: J01.91 Acute recurrent sinusitis, unspecified (principal); R50.9 Fever, unspecified
CPT/HCPCS: 99283-25

== ENCOUNTER 2022-10-13 03:58 | Emergency (ER) | payer OTHER ==
[2022-10-13 04:11] VITALS: BP 130/70; PULSE 66; RESP 18; TEMP 98.3; BMI 32.8
== END 2022-10-13 04:25 | disposition home or self-care (01) ==
LOC: FER 03:58
DX: R05.9 Cough, unspecified (principal); R09.3 Abnormal sputum; R51.9 Headache, unspecified; R09.81 Nasal congestion; R07.0 Pain in throat; J40 Bronchitis, not specified as acute or chronic; G43.909 Migraine, unspecified, not intractable, without status migrainosus
CPT/HCPCS: 99283-25

== ENCOUNTER 2022-10-19 22:45 | Emergency (ER) | payer OTHER ==
[2022-10-19] MEDS ORDERED: TETRACAINE 0.5% OPHTH SOLN 2 ML BOTTLE ONE (22:55)
[2022-10-19] MEDS ORDERED: FLUORESCEIN NA 1 EA STRIP ONE (22:55)
[2022-10-19 22:57] VITALS: BP 117/78; PULSE 77; RESP 18; TEMP 99.2; BMI 32.8
[2022-10-19] MEDS ORDERED: TOBRA 0.3%/DEXAMETH 0.1% OPHTHALMIC SUSP 2.5 ML BTL OD STA (23:07)
[2022-10-19] MEDS ORDERED: TOBRA 0.3%/DEXAMETH 0.1% OPHTHALMIC SUSP 2.5 ML BTL ONE (23:11)
== END 2022-10-19 23:16 | disposition home or self-care (01) ==
LOC: FER 22:45
DX: H57.89 Other specified disorders of eye and adnexa (principal)
CPT/HCPCS: 99283-25

== ENCOUNTER 2022-11-25 19:55 | Emergency (ER) | payer OTHER ==
[2022-11-25 20:03] VITALS: BP 120/78; PULSE 66; RESP 18; TEMP 99.5; BMI 28.2
== END 2022-11-25 20:18 | disposition home or self-care (01) ==
LOC: FER 19:55
DX: G43.909 Migraine, unspecified, not intractable, without status migrainosus (principal)
CPT/HCPCS: 99282-25

== ENCOUNTER 2023-02-05 00:04 | Emergency (ER) | payer OTHER ==
[2023-02-05 00:10] VITALS: BP 131/78; PULSE 78; RESP 19; TEMP 98.6; BMI 33.3
== END 2023-02-05 00:34 | disposition home or self-care (01) ==
LOC: FER 00:04
DX: J02.9 Acute pharyngitis, unspecified (principal); R05.9 Cough, unspecified; J40 Bronchitis, not specified as acute or chronic
CPT/HCPCS: 99283-25

== ENCOUNTER 2023-02-16 17:52 | Emergency (ER) | payer OTHER ==
[2023-02-16 18:14] VITALS: BP 118/65; PULSE 87; RESP 18; TEMP 97.8; BMI 35.9
[2023-02-16] MEDS ORDERED: AZITHROMYCIN 500 MG TABLET PO ONE (19:31)
[2023-02-16] MEDS ORDERED: AZITHROMYCIN 500 MG TABLET ONE (19:33)
== END 2023-02-16 19:43 | disposition home or self-care (01) ==
LOC: FER 17:52
DX: L08.89 Other specified local infections of the skin and subcutaneous tissue (principal)
CPT/HCPCS: 99283-25

== ENCOUNTER 2023-03-24 21:46 | Emergency (ER) | payer OTHER ==
[2023-03-24 21:56] VITALS: BP 130/80; PULSE 69; RESP 17; TEMP 98.5; BMI 30.8
[2023-03-24] MEDS ORDERED: SUMAtriptan SUCCINATE 50 MG TABLET PO SCH (22:15)
== END 2023-03-24 22:45 | disposition home or self-care (01) ==
LOC: FER 21:46
DX: G43.909 Migraine, unspecified, not intractable, without status migrainosus (principal)
CPT/HCPCS: 99283-25

== ENCOUNTER 2023-04-23 19:39 | Emergency (ER) | payer OTHER ==
[2023-04-23 19:48] VITALS: BP 140/85; RESP 16; BMI 30.8
[2023-04-23] MEDS ORDERED: AMOXICILLIN 500 MG CAPSULE (FP) PO ONE (20:29)
[2023-04-23] MEDS ORDERED: AMOXICILLIN 250 MG CAPSULE ONE (20:41)
== END 2023-04-23 20:40 | disposition home or self-care (01) ==
LOC: FER 19:39
DX: R05.9 Cough, unspecified (principal); R09.81 Nasal congestion; R09.3 Abnormal sputum; J06.9 Acute upper respiratory infection, unspecified; B97.89 Other viral agents as the cause of diseases classified elsewhere
CPT/HCPCS: 99283-25

== ENCOUNTER 2023-10-02 22:10 | Emergency (ER) | payer OTHER ==
[2023-10-02 22:20] VITALS: BP 131/69; PULSE 75; RESP 16; TEMP 98.2; BMI 30.2
== END 2023-10-02 22:47 | disposition home or self-care (01) ==
LOC: FER 22:10
DX: G43.909 Migraine, unspecified, not intractable, without status migrainosus (principal); H53.149 Visual discomfort, unspecified
CPT/HCPCS: 99283-25

== ENCOUNTER 2023-12-29 20:11 | Emergency (ER) | payer OTHER ==
[2023-12-29 20:26] VITALS: BP 110/70; PULSE 55; RESP 16; TEMP 97.5; BMI 30.2
== END 2023-12-29 21:07 | disposition home or self-care (01) ==
LOC: FER 20:11
DX: G43.909 Migraine, unspecified, not intractable, without status migrainosus (principal); J20.9 Acute bronchitis, unspecified; R05.9 Cough, unspecified; R50.9 Fever, unspecified
CPT/HCPCS: 99283-25

== ENCOUNTER 2024-02-18 00:44 | Emergency (ER) | payer OTHER ==
[2024-02-18 00:50] VITALS: BP 128/84; PULSE 73; RESP 19; TEMP 99.1; BMI 29.2
[2024-02-18] MEDS ORDERED: AZITHROMYCIN 500 MG TABLET ONE (00:53)
[2024-02-18] MEDS: AZITHROMYCIN 500 MG TABLET PO ONE (00:55)
== END 2024-02-18 00:58 | disposition home or self-care (01) ==
LOC: FER 00:44
DX: R05.9 Cough, unspecified (principal); J32.9 Chronic sinusitis, unspecified
CPT/HCPCS: 99283-25